=== PATIENT | male | born 1945 | race Caucasian/White ===

== ENCOUNTER → 2019-06-28 08:47 | Outpatient (CLI) | payer MEDICARE, SELFPAY ==
--- NOTE | 2019-06-28 09:11 | CT_ITS ---
PROCEDURE: CT ABDOMEN PELVIS WO/W CON CLINICAL INDICATION: HEMATURIA COMPARISON: No exams were available for comparison TECHNIQUE: IV Contrast: 75ML OPTIRAY 350 Oral Contrast 450ml Redicat Axial images obtained with sagittal and coronal reformats. All CT scans at the facility use one or more dose reduction, viz: automated exposure control, ma/kV adjustment per patient size (including targeted exams where dose is matched to indication, i.e. head), or iterative reconstruction technique. FINDINGS: LOWER THORAX: There are mild atelectatic changes in the left lung base. There is mild cardiomegaly. ABDOMEN & PELVIS: There is an exophytic nodular lesion along the anterior aspect of the left hepatic lobe measuring 4 cm. This shows moderate peripheral contrast enhancement with some puddling on the immediate images with some filling in on the delayed images. This is compatible with a hemangioma. The 10 minutes delayed images show some mild enhancement of the lesion with some decreased attenuation in the central aspect of this lesion. In addition, there is a 1 cm area of decreased attenuation in the posterior aspect of the right hepatic lobe which is nonspecific. The spleen, adrenal glands, and pancreas have an unremarkable appearance. Gallbladder is mildly prominent with multiple folds. No radiopaque gallstones are evident. There is a mildly prominent lymph node in the precaval region between the portal vein and the inferior vena cava measuring 2.8 x 1.2 cm. There is an IVC filter present. The tip is at the level of the entrance of the renal veins. There is mild increased density of the central mesenteric fat which is nonspecific. There is cortical scarring of both kidneys. There are nonobstructing small stones in the left kidney measuring 2 mm in the upper pole and 3 mm in the lower pole. There is a 2.8 cm left renal cyst with other smaller cysts present involving the left kidney. There is an exophytic cyst of the left kidney at 2 cm along the lower pole. No suspicious solid renal mass is evident. No intestinal obstruction or free air. There is pancolonic diverticulosis but no evidence of diverticulitis. No evidence of appendicitis. The prostate is enlarged for measuring 6.4 cm AP and 5.7 cm transverse. There is thickening of the urinary bladder wall. The urinary bladder is nondistended. Along the right aspect of the urinary bladder there is a 9 mm calcific density. Along the left aspect of the urinary bladder posteriorly there is a 5 mm calcific density. The Multilevel degenerative disc disease is present in the thoracic and lumbar spine. Osteoarthritic changes are also present involving the hips. IMPRESSION: 1. Peripheral enhancing mass of the left lobe of the liver measuring 4 cm compatible with a hemangioma. Suggest 3 month follow-up with hemangioma protocol to confirm short term stability 2. Bilateral renal cysts. Nonobstructing left nephrolithiasis with bilateral cortical scarring. 3. Enlarged prostate 4. At least 2 urinary bladder stones. There is thickening of the urinary bladder which may be due to nondistention and or cystitis Dictated by: Chinmay Head MD 06/29/2019 16:14 Electronically signed by Chinmay Head MD in [place] 06/29/2019 16:14
== END ==
PROVIDERS: PCP Internal Medicine Adolescent Medicine; Visit Provider Internal Medicine Adolescent Medicine
DX: R31.9 Hematuria, unspecified (principal)
CPT/HCPCS: 74178; Q9967

== ENCOUNTER → 2020-08-27 10:18 | Outpatient (CLI) | payer MEDICARE, SELFPAY ==
--- NOTE | 2020-08-27 10:34 | XR_ITS ---
PROCEDURE: XR KUB CLINICAL INDICATION: BLADDER STONE COMPARISON: CT CT ABDOMEN PELVIS WO/W CON from 06/28/2019 FINDINGS: IVC filter is present to the right of T12-L1. There is spondylosis of the lumbar spine. 12 mm calcific density is present in the pelvis centrally slightly toward the right and may represent a bladder stone. There is diffuse vascular calcification as well as osteoarthritic changes of the hips. IMPRESSION: 12 mm bladder stone Dictated by: Chinmay Head MD 08/27/2020 12:39 Chinmay Head MD in [facility] 08/27/2020 12:39
== END ==
PROVIDERS: PCP Internal Medicine Adolescent Medicine; Visit Provider Urology
DX: N21.0 Calculus in bladder (principal)
CPT/HCPCS: 74018

== ENCOUNTER → 2020-08-28 13:36 | Outpatient (CLI) | payer MEDICARE, SELFPAY ==
[2020-08-30 09:39] LABS: PSA, Free 0.85 ng/mL; Prostate Specific Ag 3.8 ng/mL (0.0-4.0)
== END ==
PROVIDERS: Visit Provider Urology
DX: R97.20 Elevated prostate specific antigen [PSA] (principal)
CPT/HCPCS: 36415; 84153; 84154

== ENCOUNTER → 2020-09-17 15:24 | Outpatient (CLI) | payer MEDICARE, SELFPAY ==
[2020-09-17 16:22] LABS: INR 3.14 (0.9-1.1)
== END ==
PROVIDERS: Visit Provider Internal Medicine Adolescent Medicine
DX: Z51.81 Encounter for therapeutic drug level monitoring (principal); Z79.01 Long term (current) use of anticoagulants; I63.50 Cerebral infarction due to unspecified occlusion or stenosis of unspecified cerebral artery
CPT/HCPCS: 36415; 85610

== ENCOUNTER → 2020-10-15 12:29 | Outpatient (CLI) | payer MEDICARE, SELFPAY ==
[2020-10-15 15:10] LABS: INR 3.04 (0.9-1.1)
== END ==
PROVIDERS: Visit Provider Internal Medicine Adolescent Medicine
DX: Z51.81 Encounter for therapeutic drug level monitoring (principal); Z79.01 Long term (current) use of anticoagulants; I63.50 Cerebral infarction due to unspecified occlusion or stenosis of unspecified cerebral artery
CPT/HCPCS: 36415; 85610

== ENCOUNTER 2020-10-23 14:54 | Outpatient (CLI) | payer MEDICARE, SELFPAY ==
[2020-10-23 15:45] VITALS: BP 101/61; PULSE 70; RESP 17; TEMP 36.6; O2SAT 90
[2020-10-23 16:00] VITALS: BP 117/78; PULSE 68
[2020-10-23 16:52] VITALS: BP 121/72; PULSE 71; RESP 18; O2SAT 93
[2020-10-23 17:20] VITALS: BP 118/76; PULSE 82; RESP 19; TEMP 36.8; O2SAT 93
== END 2020-10-23 17:29 | disposition home or self-care (01) ==
LOC: INF 14:56
PROVIDERS: PCP Internal Medicine Adolescent Medicine; Visit Provider Internal Medicine Adolescent Medicine
DX: U07.1 COVID-19 (principal)
CPT/HCPCS: 96365

== ENCOUNTER 2020-11-05 08:54 | Outpatient (CLI) | payer MEDICARE, SELFPAY ==
[2020-11-05 09:25] LABS: Basophils % 0.8 % (0.1-2.0); Eosinophils # 0.2 K/mm3 (0.0-0.4); Eosinophils % 3.8 % (0.1-12.0); Hematocrit 41.7 % (42.0-52.0); Hemoglobin 12.9 g/dL (14.1-18.0); Lymphocytes # 1.6 K/mm3 (0.7-4.5); Lymphocytes % 27.9 % (10-50); Mean Corpuscular HGB Conc 30.9 g/dL (31.8-35.4); Mean Corpuscular Hemoglobin 30.6 pg (27.0-31.2); Mean Corpuscular Volume 98.8 fl (80-94); Mean Platelet Volume 7.3 fl (7.4-10.4); Monocytes # 0.4 K/mm3 (0.1-1.0); Neutrophils # 3.6 K/mm3 (1.8-7.8); Neutrophils % 60.6 % (37.0-80.0); Platelet Count 353 K/mm3 (142-424); Red Blood Count 4.22 M/mm3 (4.60-6.20); Red Cell Distribution Width 13.7 % (11.5-17.5); White Blood Count 5.9 K/mm3 (4.8-10.8)
[2020-11-05 10:19] LABS: INR > 8.00 (0.9-1.1)
[2020-11-05 10:20] LABS: Prothrombin Time > 90.0 seconds (10.1-12.5)
[2020-11-05 12:40] VITALS: BP 132/69; PULSE 76; RESP 20; TEMP 36.9; O2SAT 95
[2020-11-05 16:05] LABS: Alanine Aminotransferase 21 U/L (12-78); Albumin Level 3.4 g/dl (3.5-5.0); Albumin/Globulin Ratio 1.3 (1.1-1.8); Alkaline Phosphatase 60 U/L (38-126); Anion Gap 11.6 mEq/L (5-15); Aspartate Amino Transferase 29 U/L (17-59); Bilirubin,Total 0.5 mg/dl (0.2-1.3); Blood Urea Nitrogen 30 mg/dl (9-20); Calcium 8.8 mg/dl (8.4-10.2); Carbon Dioxide 26 mmol/L (22.0-30.0); Chloride 111 mmol/L (98-107); Chol/HDL Ratio 2.8 (1-3.5); Cholesterol 188 mg/dl (140-200); Estimated Glomerular Filt Rate 40 ml/min (>60); GFR (African American) 48 ML/MIN (>60); Globulin 2.6 g/dL (1.3-3.2); Glucose 125 mg/dl (74-100); HDL Cholesterol 67 mg/dl (40-60); Potassium 4.6 mmoL/L (3.5-5.1); Sodium 144 mmol/L (136-145); Triglycerides 133 mg/dl (30-150); VLDL Cholesterol 27 mg/dL (0-40)
[2020-11-05 16:16] LABS: Direct LDL Cholesterol 76.18 mg/dL (100-129)
[2020-11-05 16:35] LABS: Prostate Specific Ag Screen 2.7 ng/ml (0.0-4.0)
== END 2020-11-05 13:00 | disposition home or self-care (01) ==
PROVIDERS: PCP Internal Medicine Adolescent Medicine; Visit Provider Internal Medicine Adolescent Medicine
DX: Z00.00 Encounter for general adult medical examination without abnormal findings (principal); I10 Essential (primary) hypertension; E78.5 Hyperlipidemia, unspecified; E55.9 Vitamin D deficiency, unspecified; Z51.81 Encounter for therapeutic drug level monitoring; Z79.01 Long term (current) use of anticoagulants; Z12.5 Encounter for screening for malignant neoplasm of prostate
CPT/HCPCS: 36415; 80053; 80061; 82306; 85025; 85610; 96372; G0103

== ENCOUNTER → 2020-11-07 09:43 | Outpatient (CLI) | payer MEDICARE, SELFPAY ==
[2020-11-07 11:20] LABS: Prothrombin Time 29.9 seconds (10.1-12.5)
[2020-11-07 11:38] LABS: INR 2.73 (0.9-1.1)
== END ==
PROVIDERS: Visit Provider Internal Medicine Adolescent Medicine
DX: Z51.81 Encounter for therapeutic drug level monitoring (principal); Z79.01 Long term (current) use of anticoagulants; I63.50 Cerebral infarction due to unspecified occlusion or stenosis of unspecified cerebral artery
CPT/HCPCS: 36415; 85610

== ENCOUNTER 2020-11-19 09:29 | Outpatient (CLI) | payer MEDICARE, SELFPAY ==
[2020-11-19 14:57] LABS: PHA INR Fingerstick 2.1 (0.9-1.1)
== END 2020-11-19 15:01 | disposition home or self-care (01) ==
LOC: ACC 09:30
PROVIDERS: PCP Internal Medicine Adolescent Medicine; Visit Provider Internal Medicine Adolescent Medicine
DX: Z51.81 Encounter for therapeutic drug level monitoring (principal); Z79.01 Long term (current) use of anticoagulants
CPT/HCPCS: 85610; 99211; G0463

== ENCOUNTER → 2020-11-28 14:25 | Outpatient (CLI) | payer MEDICARE, SELFPAY ==
[2020-11-28 15:01] LABS: Basophils # 0.1 K/mm3 (0-0.2); Basophils % 0.7 % (0.1-2.0); Eosinophils # 0.2 K/mm3 (0.0-0.4); Eosinophils % 3.3 % (0.1-12.0); Hematocrit 44.1 % (42.0-52.0); Hemoglobin 13.8 g/dL (14.1-18.0); Lymphocytes # 1.4 K/mm3 (0.7-4.5); Lymphocytes % 18.4 % (10-50); Mean Corpuscular HGB Conc 31.3 g/dL (31.8-35.4); Mean Corpuscular Hemoglobin 31.5 pg (27.0-31.2); Mean Corpuscular Volume 100.4 fl (80-94); Mean Platelet Volume 8.5 fl (7.4-10.4); Monocytes # 0.3 K/mm3 (0.1-1.0); Monocytes % 3.6 % (1.7-9.3); Neutrophils # 5.5 K/mm3 (1.8-7.8); Platelet Count 292 K/mm3 (142-424); Red Blood Count 4.39 M/mm3 (4.60-6.20); Red Cell Distribution Width 14.4 % (11.5-17.5); White Blood Count 7.4 K/mm3 (4.8-10.8)
[2020-11-28 15:05] LABS: INR 1.81 (0.9-1.1); Prothrombin Time 19.6 seconds (10.1-12.5)
[2020-11-28 16:29] LABS: Alanine Aminotransferase 15 U/L (12-78); Albumin Level 4.1 g/dl (3.5-5.0); Albumin/Globulin Ratio 1.5 (1.1-1.8); Alkaline Phosphatase 62 U/L (38-126); Anion Gap 10.3 mEq/L (5-15); Aspartate Amino Transferase 25 U/L (17-59); Bilirubin,Total 0.5 mg/dl (0.2-1.3); Blood Urea Nitrogen 31 mg/dl (9-20); Calcium 9.5 mg/dl (8.4-10.2); Carbon Dioxide 30 mmol/L (22.0-30.0); Chloride 104 mmol/L (98-107); Chol/HDL Ratio 2.4 (1-3.5); Cholesterol 238 mg/dl (140-200); Estimated Glomerular Filt Rate 50 ml/min (>60); GFR (African American) 60 ML/MIN (>60); Globulin 2.7 g/dL (1.3-3.2); Glucose 237 mg/dl (74-100); HDL Cholesterol 99 mg/dl (40-60); Potassium 4.3 mmoL/L (3.5-5.1); Sodium 140 mmol/L (136-145); Total Protein,Serum 6.8 g/dl (6.3-8.2); Triglycerides 133 mg/dl (30-150); VLDL Cholesterol 27 mg/dL (0-40)
[2020-11-28 16:40] LABS: Direct LDL Cholesterol 101.17 mg/dL (100-129)
== END ==
PROVIDERS: Visit Provider Internal Medicine Adolescent Medicine
DX: E78.5 Hyperlipidemia, unspecified (principal); Z51.81 Encounter for therapeutic drug level monitoring; Z79.01 Long term (current) use of anticoagulants
CPT/HCPCS: 36415; 80053; 80061; 85025; 85610

== ENCOUNTER → 2020-12-25 15:19 | Outpatient (POV) | payer MEDICARE, SELFPAY | PROVIDERS: Visit Provider Dermatology | DX: Z00.00 Encounter for general adult medical examination without abnormal findings (principal) ==

== ENCOUNTER → 2021-01-10 10:40 | Outpatient (CLI) | payer MEDICARE, SELFPAY ==
[2021-01-10 12:08] LABS: INR 2.31 (0.9-1.1); Prothrombin Time 24.5 seconds (10.1-12.5)
== END ==
PROVIDERS: Visit Provider Internal Medicine Adolescent Medicine
DX: Z51.81 Encounter for therapeutic drug level monitoring (principal); Z79.01 Long term (current) use of anticoagulants; I63.50 Cerebral infarction due to unspecified occlusion or stenosis of unspecified cerebral artery
CPT/HCPCS: 36415; 85610

== ENCOUNTER → 2021-02-11 16:16 | Outpatient (CLI) | payer MEDICARE, SELFPAY ==
[2021-02-11 17:30] LABS: Prothrombin Time 22.5 seconds (10.1-12.5)
== END ==
PROVIDERS: Visit Provider Internal Medicine Adolescent Medicine
DX: I63.50 Cerebral infarction due to unspecified occlusion or stenosis of unspecified cerebral artery (principal); Z51.81 Encounter for therapeutic drug level monitoring; Z79.01 Long term (current) use of anticoagulants
CPT/HCPCS: 36415; 85610

== ENCOUNTER → 2021-03-05 14:57 | Outpatient (CLI) | payer MEDICARE, SELFPAY ==
[2021-03-05 15:35] LABS: INR 2.07 (0.9-1.1); Prothrombin Time 22.2 seconds (10.1-12.5)
== END ==
PROVIDERS: PCP Internal Medicine Adolescent Medicine; Visit Provider Internal Medicine Adolescent Medicine
DX: Z51.81 Encounter for therapeutic drug level monitoring (principal); Z79.01 Long term (current) use of anticoagulants; I63.50 Cerebral infarction due to unspecified occlusion or stenosis of unspecified cerebral artery
CPT/HCPCS: 36415; 85610

== ENCOUNTER → 2021-04-03 11:36 | Outpatient (CLI) | payer MEDICARE, SELFPAY ==
[2021-04-03 15:12] LABS: INR 1.59 (0.9-1.1); Prothrombin Time 17.4 seconds (10.1-12.5)
== END ==
PROVIDERS: PCP Internal Medicine Adolescent Medicine; Visit Provider Internal Medicine Adolescent Medicine
DX: Z51.81 Encounter for therapeutic drug level monitoring (principal); Z79.01 Long term (current) use of anticoagulants; I63.50 Cerebral infarction due to unspecified occlusion or stenosis of unspecified cerebral artery
CPT/HCPCS: 36415; 85610

== ENCOUNTER → 2021-06-04 15:57 | Outpatient (CLI) | payer MEDICARE, SELFPAY ==
[2021-06-04 16:52] LABS: INR 2.79 (0.9-1.1); Prothrombin Time 29.2 seconds (10.1-12.5)
== END ==
PROVIDERS: Visit Provider Internal Medicine Adolescent Medicine
DX: Z51.81 Encounter for therapeutic drug level monitoring (principal); Z79.01 Long term (current) use of anticoagulants; I63.50 Cerebral infarction due to unspecified occlusion or stenosis of unspecified cerebral artery
CPT/HCPCS: 36415; 85610

== ENCOUNTER → 2021-07-01 12:08 | Outpatient (CLI) | payer MEDICARE, SELFPAY ==
[2021-07-01 13:25] LABS: INR 3.77 (0.9-1.1); Prothrombin Time 38.6 seconds (10.1-12.5)
== END ==
PROVIDERS: Visit Provider Internal Medicine Adolescent Medicine
DX: Z51.81 Encounter for therapeutic drug level monitoring (principal); Z79.01 Long term (current) use of anticoagulants; I63.50 Cerebral infarction due to unspecified occlusion or stenosis of unspecified cerebral artery
CPT/HCPCS: 36415; 85610

== ENCOUNTER → 2021-07-16 13:00 | Outpatient (CLI) | payer MEDICARE, SELFPAY ==
[2021-07-16 13:39] LABS: Prothrombin Time 26.4 seconds (10.1-12.5)
== END ==
PROVIDERS: PCP Internal Medicine Adolescent Medicine; Visit Provider Internal Medicine Adolescent Medicine
DX: Z51.81 Encounter for therapeutic drug level monitoring (principal); Z79.01 Long term (current) use of anticoagulants; I63.50 Cerebral infarction due to unspecified occlusion or stenosis of unspecified cerebral artery
CPT/HCPCS: 36415; 85610

== ENCOUNTER 2021-07-25 15:12 | Emergency (ER) | payer MEDICARE, SELFPAY ==
[2021-07-25] VITALS (12 sets, daily range): BP systolic 96–167; BP diastolic 48–108; PULSE 82–107; RESP 18–20; TEMP 37.3–39; O2SAT 90–94; BMI 28.0
--- NOTE | 2021-07-25 15:36 | XR_ITS ---
FINAL REPORT CLINICAL HISTORY: cough, epigastric pain, fever. COMPARISON: May 07, 2018 FINDINGS: A single portable view of the chest was obtained. The heart size and pulmonary vascularity are within normal limits. The mediastinum is within normal limits. No acute pulmonary abnormality is identified. There are several chronic right posterior rib fractures. IMPRESSION: No active cardiopulmonary disease. Reviewed, Interpreted and Dictated by Shukri Gil III, MD Transcribed by Sugey Santana Authenticated and [facility]
--- NOTE | 2021-07-25 15:41 | PC.NURSE ---
rad at BS for portable xray
--- NOTE | 2021-07-25 16:10 | HMH.EDGENADL ---
ED Disposition Clinical Impression: Acute sepsis, Cholangitis Disposition: Xfer Intermediate Care Fac Condition on Discharge: Serious Instructions: Gallstones Referrals: Chandu Wesley MD [Primary Care Provider] - - Critical Care Critical Care Time: No Attestation: On 07/25/21, the high probability of a clinically significant, sudden or life threatening deterioration of the following system(s) required my full and direct attention, intervention and personal management. The time I documented below is in addition to time spent performing reported procedures but includes the following listed in this critical care notation. Medical Decision Making - Medical Records Medical records reviewed: Yes: I reviewed the patient's medical records. - Dannie Inquiry Pt receiving controlled substance: No Vital Signs: 07/25/21 15:35 07/25/21 17:13 07/25/21 17:14 Temperature 101.5 F H 102.2 F H Temperature Source Oral Oral Pulse Rate 104 H 107 H Pulse Rate [Left Radial] 92 H Respiratory Rate 18 20 Blood Pressure 167/70 H 167/70 H Blood Pressure [Right Arm] 159/73 H Blood Pressure Mean 94 Blood Pressure Mean [Right Arm] 101 02 Sat by Pulse Oximetry 94 L 93 L 91 L Oxygen Delivery Method Room Air Room Air 07/25/21 17:31 Temperature Temperature Source Pulse Rate 106 H Pulse Rate [Left Radial] Respiratory Rate 18 Blood Pressure 160/108 H Blood Pressure [Right Arm] Blood Pressure Mean 117 Blood Pressure Mean [Right Arm] 02 Sat by Pulse Oximetry 90 L Oxygen Delivery Method - Lab Data Lab Results 07/25/21 16:18: WBC 11.5 H, RBC 3.98 L, Hgb 12.7 L, Hct 39.4 L, MCV 99.0 H, MCH 32.0 H, MCHC 32.4, RDW 13.4, Plt Count 243, MPV 8.8, Neut % (Auto) 93.8 H, Lymph % (Auto) 3.0 L, [place] % (Auto) 2.0, Eos % (Auto) 0.8, Baso % (Auto) 0.4, Neut # (Auto) 10.8 H, Lymph # (Auto) 0.3 L, [place] # (Auto) 0.2, Eos # (Auto) 0.1, Baso # (Auto) 0.1, Total Counted 100, Neutrophils % (Manual) 92 H, Lymphocytes % (Manual) 4 L, Monocytes % (Manual) 4, Platelet Estimate Normal, RBC Morphology Not Reportable 07/25/21 16:18: Sodium 140, Potassium 3.5, Chloride 101, Carbon Dioxide 30, Anion Gap 12.5, BUN 38 H, Creatinine 2.10 H, Estimated Creat Clear 37, Estimated GFR 31 L, Est GFR ( Amer) 37 L, Glucose 301 H, Calcium 9.1, Total Bilirubin 5.0 H, AST 291 H, ALT 436 H*, Alkaline Phosphatase 333 H, Troponin I < 0.01, Total Protein 7.4, Albumin 4.1, Globulin 3.3 H, Albumin/Globulin Ratio 1.2, Lipase 126 07/25/21 16:18: Lactate 2.9 H 07/25/21 16:18: SARS-CoV-2 (PCR) Not detected, Influenza A Untype (PCR) Not detected, Influenza Type B (PCR) Not detected 07/25/21 17:55: Urine Color Yellow, Urine Appearance Clear, Urine pH 5.0, Ur Specific [place] 1.020, Urine Protein Trace, Urine Glucose (UA) 2+, Urine Ketones Negative, Urine Blood Trace-l, Urine Nitrate Negative, Urine Bilirubin 1+ A, Urine Urobilinogen 1.0, Ur Leukocyte Esterase Negative, Urine RBC Occasional, Urine WBC 5-10, Ur Squamous Epith Cells 3-5, Urine Bacteria 3+ 07/25/21 19:12: Troponin I 0.02 Result diagrams: 07/25/21 16:18 07/25/21 16:18 Orders (Tests/Meds): ED MEDICATIONS Generic Name Dose Route Start Last Admin Trade Name Freq PRN Reason Stop Dose Admin Ceftriaxone Sodium 1 gm/ 50 mls @ 100 mls/hr 07/25/21 17:45 07/25/21 18:01 Sodium Chloride IV 08/08/21 17:44 100 mls/hr Q24H KEILY Administration Metronidazole 500 mg in 100 mls @ 100 mls/hr 07/25/21 19:34 Flagyl 500mg/100ml Ivpb IV 07/25/21 20:33 ONCE ONE Discontinued Medications Generic Name Dose Route Start Last Admin Trade Name Freq PRN Reason Stop Dose Admin Acetaminophen 1,000 mg 07/25/21 15:36 07/25/21 16:21 Acetaminophen 500mg Tab PO 07/25/21 15:37 1,000 mg ONCE ONE Administration Sodium Chloride 1,000 mls @ 999 mls/hr 07/25/21 15:45 07/25/21 16:21 Sod Chlor 0.9% 1000ml Bag IV 07/25/21 16:45 999 mls/hr .Q1H1M KEILY Administration Ondansetron HCl 4 mg
--- NOTE | 2021-07-25 16:18 | PC.NURSE ---
20g ultrasound guided IV placed in the right ac.
[2021-07-25 16:26] LABS: Coronavirus 19, PCR Not Detected (NotDetected); Influenza A, PCR Not Detected (NotDetected); Influenza B, PCR Not Detected (NotDetected)
[2021-07-25 16:31] LABS: Basophils # 0.1 K/mm3 (0-0.2); Basophils % 0.4 % (0.1-2.0); Eosinophils # 0.1 K/mm3 (0.0-0.4); Eosinophils % 0.8 % (0.1-12.0); Hematocrit 39.4 % (42.0-52.0); Hemoglobin 12.7 g/dL (14.1-18.0); Lymphocytes # 0.3 K/mm3 (0.7-4.5); Mean Corpuscular HGB Conc 32.4 g/dL (31.8-35.4); Mean Platelet Volume 8.8 fl (7.4-10.4); Monocytes # 0.2 K/mm3 (0.1-1.0); Neutrophils # 10.8 K/mm3 (1.8-7.8); Neutrophils % 93.8 % (37.0-80.0); Platelet Count 243 K/mm3 (142-424); Red Blood Count 3.98 M/mm3 (4.60-6.20); Red Cell Distribution Width 13.4 % (11.5-17.5); White Blood Count 11.5 K/mm3 (4.8-10.8)
[2021-07-25 16:40] LABS: Alanine Aminotransferase 436 U/L (12-78); Albumin Level 4.1 g/dl (3.5-5.0); Albumin/Globulin Ratio 1.2 (1.1-1.8); Alkaline Phosphatase 333 U/L (38-126); Anion Gap 12.5 mEq/L (5-15); Aspartate Amino Transferase 291 U/L (17-59); Blood Urea Nitrogen 38 mg/dl (9-20); Calcium 9.1 mg/dl (8.4-10.2); Carbon Dioxide 30 mmol/L (22.0-30.0); Chloride 101 mmol/L (98-107); Creatinine Clearance Estimated 37 mL/min (50-200); Estimated Glomerular Filt Rate 31 ml/min (>60); GFR (African American) 37 ML/MIN (>60); Globulin 3.3 g/dL (1.3-3.2); Glucose 301 mg/dl (74-100); Lipase 126 U/L (23-300); Potassium 3.5 mmoL/L (3.5-5.1); Sodium 140 mmol/L (136-145); Total Protein,Serum 7.4 g/dl (6.3-8.2)
[2021-07-25 16:48] LABS: MANUAL DIFFERENTIAL MANUAL DIFFERENTIAL (MANUAL DIFF)
[2021-07-25 16:53] LABS: Lactic Acid 2.9 mmol/L (0.7-2.1); Troponin I < 0.01 ng/ml (0.00-0.034)
--- NOTE | 2021-07-25 17:15 | CT_ITS ---
PROCEDURE INFORMATION: Exam: CT Abdomen And Pelvis Without Contrast Exam date and time: 07/25/2021 5:38 PM Age: 76 years old Clinical indication: Abdominal pain; Localized; Upper; Prior surgery; Additional info: Ruq pain, fever TECHNIQUE: Imaging protocol: Computed tomography of the abdomen and pelvis without contrast. Radiation optimization: All CT scans at this facility use at least one of these dose optimization techniques: automated exposure control; mA and/or kV adjustment per patient size (includes targeted exams where dose is matched to clinical indication); or iterative reconstruction. COMPARISON: CT ABDOMEN PELVIS WO/W CON 06/28/2019 9:46 AM FINDINGS: Liver: Persistent slightly exophytic nodule the anterior aspect of the left lobe of the liver. This has been demonstrated to correspond to a hemangioma on the 06/28/2019 examination. No contrast was administered on the current study. Gallbladder and bile ducts: Persistent mild prominence of the gallbladder. Mild increased density within the gallbladder consistent with sludge. The common bile duct is dilated and measures 11 mm in AP dimensions. No retained stone is identified. Findings have progressed since the previous study. Pancreas: Normal. No ductal dilation. Spleen: Normal. No splenomegaly. Adrenal glands: Normal. No mass. Kidneys and ureters: Persistent multiple left renal cysts. The largest measures 2.4 cm in maximum dimensions. These findings accounting for slight differences in technique are stable compared with the previous study. Bilateral perinephric stranding. Findings nonspecific and may reflect acute versus chronic inflammatory change. Stomach and bowel: Persistent ponce colonic diverticulosis. No evidence of diverticulitis. Appendix: No evidence of appendicitis. Intraperitoneal space: Persistent mild increased density of the central mesenteric fat. Vasculature: IVC filter again demonstrated. Lymph nodes: Unremarkable. No enlarged lymph nodes. Urinary bladder: There is a persistent calcific density along the left posterolateral aspect of the bladder measuring 8 mm. This is bigger in comparison to the previous study. The previously demonstrated right-sided calcific densities no longer present. Reproductive: There is persistent prostatic enlargement. Bones/joints: Lumbar spondylosis with multilevel disc degeneration. Soft tissues: Persistent right-sided fat filled inguinal hernia. IMPRESSION: 1. Mild dilatation of the distal common bile duct measuring 11 mm in AP dimensions. Gallbladder sludge. No evidence of a retained stone. Consider further evaluation with an abdominal ultrasound. 2. Persistent multiple left renal cysts. Findings stable. 3. Diverticulosis. No evidence of diverticulitis. 4. Remainder of the findings as described above. COMMENTS: 1. Consistent with the [employer]'s Incidental Findings Committee white paper (J Am Jakob Radiol 2018): Any incidental renal lesion less than 1 cm or classified as too small to characterize, or any incidental cystic renal lesion characterized as simple-appearing, is likely benign. No follow-up imaging is recommended for these lesions per consensus recommendations based on imaging criteria. 2. For patients with an IVC filter, recommend assessment for a management plan for the patient's IVC filter. If there is no established management plan, recommend referral to an interventional clinician on a nonemergent basis for evaluation.
--- NOTE | 2021-07-25 17:15 | PC.NURSE ---
reevaluated pt temperature d/t fever. pt's temperature elevated from arrival. MD notified. no patient needs at this time
--- NOTE | 2021-07-25 17:43 | PC.NURSE ---
pt to radiology
--- NOTE | 2021-07-25 18:00 | PC.NURSE ---
pt returned from radiology
[2021-07-25 18:02] LABS: Lymphocytes % 4 % (10-50); Monocytes % 4 % (2-9); Neutrophils % 92 % (42-76); Platelet Estimate Normal; Total Cells Counted 100
[2021-07-25 18:05] LABS: Microscopic, Urine URINE MICROSCOPIC (MICROSCOPIC)
[2021-07-25 18:18] LABS: Appearance,Urine CLEAR (Clear); Blood, Urine TRACE-L (Negative); Color,Urine YELLOW (Yellow); Glucose,Urine (UA) 2+ (Negative); Ketones,Urine Negative (Negative); Leukocyte Esterase,Urine Negative (Negative); Nitrate,Urine Negative (Negative); Protein,Urine TRACE (Negative)
[2021-07-25 18:19] LABS: Bilirubin,Urine 1+ (Negative)
--- NOTE | 2021-07-25 18:25 | PC.NURSE ---
Call to [facility], no beds available, patient put on wait list
--- NOTE | 2021-07-25 18:25 | PC.NURSE ---
pt placed on 2L NC d/t sat dropping to 88% while pt was sleeping. pt has no concerns at this time
[2021-07-25 18:39] LABS: Bacteria,Urine 3+ /lpf; RBC,Urine Occasional #/hpf (0-3)
--- NOTE | 2021-07-25 18:52 | PC.NURSE ---
[facility] called for pt transfer Dr Henry speaking with Dr Pelletier
--- NOTE | 2021-07-25 19:32 | PC.NURSE ---
ED doctor on phone with Dr. Ty Sandoval
[2021-07-25 19:40] LABS: Troponin I 0.02 ng/ml (0.00-0.034)
[2021-07-25 19:51] LABS: Activated Partial Thrombo Time 42.5 seconds (22.8-30.6); INR 3.02 (0.9-1.1); Prothrombin Time 31.4 seconds (10.1-12.5)
[2021-07-25 20:24] LABS: Reflex Lactic Add Lactic Reflex
--- NOTE | 2021-07-25 20:57 | PC.NURSE ---
S/w green end department supervisor Shruthi at [facility]. pt has been accepted by hospitalist and dr posada. They do not have a bed assignment at this time or timeframe. Pt is added on for Dr. Posada to do an ercp tomorrow. She states once their pt transfers out they will call and pt may come. Pt & spouse updated on this information.
--- NOTE | 2021-07-25 21:10 | PC.NURSE ---
Updated pt and on POC, maintenance NS infusing. Dressing to RAC changed a this time. Pillow given and extra blanket.
--- NOTE | 2021-07-25 22:03 | PC.NURSE ---
patient repositioned in bed
[2021-07-26] VITALS: BP 96/46; PULSE 69; O2SAT 99
[2021-07-26 00:11] VITALS: BP 96/46; PULSE 73; RESP 18; TEMP 37.3; O2SAT 95
[2021-07-26 00:30] VITALS: BP 104/62; PULSE 77; O2SAT 98
--- NOTE | 2021-07-26 06:46 | PC.NURSE ---
Positive prelim blood culture results faxed to [facility] ([phone]) and s/w to Valeri in ICU. Fax confirmation received.
== END 2021-07-26 00:39 ==
PROVIDERS: Emergency Provider Emergency Medicine; PCP Internal Medicine Adolescent Medicine
DX: Z86.73 Personal history of transient ischemic attack (TIA), and cerebral infarction without residual deficits (principal); I82.409 Acute embolism and thrombosis of unspecified deep veins of unspecified lower extremity; E78.5 Hyperlipidemia, unspecified; I10 Essential (primary) hypertension; M19.90 Unspecified osteoarthritis, unspecified site; A41.89 Other specified sepsis; K83.09 Other cholangitis; I73.9 Peripheral vascular disease, unspecified
CPT/HCPCS: 71045; 74176; 80053; 81001; 83605; 83690; 84484; 85007; 85025; 85610; 85730; 87040; 87077; 87086; 87186; 96365; 96366; 99285; C9803; J0696; J2405; U0003; U0005

== ENCOUNTER → 2021-08-08 15:06 | Outpatient (CLI) | payer MEDICARE, SELFPAY ==
[2021-08-08 15:45] LABS: INR 2.32 (0.9-1.1); Prothrombin Time 24.6 seconds (10.1-12.5)
== END ==
PROVIDERS: PCP Internal Medicine Adolescent Medicine; Visit Provider Internal Medicine Adolescent Medicine
DX: Z51.81 Encounter for therapeutic drug level monitoring (principal); Z79.01 Long term (current) use of anticoagulants; I63.50 Cerebral infarction due to unspecified occlusion or stenosis of unspecified cerebral artery
CPT/HCPCS: 36415; 85610

== ENCOUNTER → 2021-08-10 10:11 | Outpatient (CLI) | payer MEDICARE, SELFPAY ==
[2021-08-10 11:27] LABS: Basophils % 0.6 % (0.1-2.0); Eosinophils # 0.2 K/mm3 (0.0-0.4); Eosinophils % 3.3 % (0.1-12.0); Hematocrit 29.6 % (42.0-52.0); Hemoglobin 9.3 g/dL (14.1-18.0); Lymphocytes # 1.3 K/mm3 (0.7-4.5); Lymphocytes % 17.3 % (10-50); Mean Corpuscular HGB Conc 31.5 g/dL (31.8-35.4); Mean Corpuscular Hemoglobin 31.7 pg (27.0-31.2); Mean Corpuscular Volume 100.6 fl (80-94); Mean Platelet Volume 8.1 fl (7.4-10.4); Monocytes # 0.4 K/mm3 (0.1-1.0); Monocytes % 5.4 % (1.7-9.3); Neutrophils # 5.4 K/mm3 (1.8-7.8); Neutrophils % 73.4 % (37.0-80.0); Platelet Count 420 K/mm3 (142-424); Red Blood Count 2.94 M/mm3 (4.60-6.20); Red Cell Distribution Width 13.8 % (11.5-17.5); White Blood Count 7.3 K/mm3 (4.8-10.8)
[2021-08-10 11:47] LABS: Chloride 108 mmol/L (98-107); Potassium 3.9 mmoL/L (3.5-5.1); Sodium 142 mmol/L (136-145)
[2021-08-10 11:50] LABS: Alanine Aminotransferase 26 U/L (12-78); Alkaline Phosphatase 112 U/L (38-126); Anion Gap 8.9 mEq/L (5-15); Aspartate Amino Transferase 33 U/L (17-59); Bilirubin,Total 0.5 mg/dl (0.2-1.3); Blood Urea Nitrogen 19 mg/dl (9-20); Carbon Dioxide 29 mmol/L (22.0-30.0); Estimated Glomerular Filt Rate 37 ml/min (>60); GFR (African American) 45 ML/MIN (>60)
[2021-08-10 11:51] LABS: Calcium 8.4 mg/dl (8.4-10.2); Glucose 119 mg/dl (74-100)
[2021-08-10 13:29] LABS: Hemoglobin A1C 6.7 % (4.0-6.0)
== END ==
PROVIDERS: PCP Internal Medicine Adolescent Medicine; Visit Provider Internal Medicine Adolescent Medicine
DX: K85.10 Biliary acute pancreatitis without necrosis or infection (principal); A41.51 Sepsis due to Escherichia coli [E. coli]; N17.9 Acute kidney failure, unspecified; Z79.899 Other long term (current) drug therapy
CPT/HCPCS: 36415; 80053; 83036; 85025

== ENCOUNTER 2021-08-23 13:36 | Emergency (ER) | payer MEDICARE, SELFPAY ==
[2021-08-23 13:36] VITALS: BP 148/64; PULSE 87; RESP 16; TEMP 36.7; O2SAT 93; BMI 28.5
--- NOTE | 2021-08-23 13:56 | HMH.EDUROGM ---
ED Disposition Clinical Impression: Acute retention of urine Disposition: Home, Self-Care Condition on Discharge: Good Instructions: DI for Urinary Retention in Men Additional Instructions: Follow-up with your primary care doctor in about 3 to 4 days. Return to the emergency department if you feel worse in any way. Referrals: Chandu Wesley MD [Primary Care Provider] - - Critical Care Critical Care Time: No Attestation: On 08/23/21, the high probability of a clinically significant, sudden or life threatening deterioration of the following system(s) required my full and direct attention, intervention and personal management. The time I documented below is in addition to time spent performing reported procedures but includes the following listed in this critical care notation. Medical Decision Making - Dannie Inquiry Pt receiving controlled substance: No Vital Signs: 08/23/21 13:36 Temperature 98.1 F Temperature Source Oral Pulse Rate [Right Radial] 87 Respiratory Rate 16 Blood Pressure [Right Arm] 148/64 H Blood Pressure Mean [Right Arm] 92 Blood Pressure Source [Right Arm] Automatic Cuff Blood Pressure Position [Right Arm] Sitting 02 Sat by Pulse Oximetry 93 L Oxygen Delivery Method Room Air Orders (Tests/Meds): ORDERS Category Date Time Status Urinalysis and Microscopic Stat Lab 08/23/21 14:45 Received - Reevaluation(s) Time: 14:53 Reevaluation #1: The patient feels better after having had the Lincoln catheter placed. Approximately 5 to 600 mL of urine have drained. The patient has opted for a leg bag and the larger bag will be converted to a leg bag. The patient cannot be safely discharged home. Male Urogenital HPI - General Chief complaint: Urogenital-Male Stated complaint: post op 08/22 unable to urinate Time Seen by Provider: 08/23/21 13:56 Mode of Arrival: Ambulatory Limitations: No Limitations Description of Symptoms (Recalled from ER Triage Doc. by RN): Pt states that he had an ERCP performed yesterday and has now not urinated x20 hours - History of Present Illness HPI Narrative: The patient presents to the emergency department accompanied by his for urinary retention. He had an ERCP done yesterday to remove a biliary stent. Since then he has not been able to urinate. He feels the urge to urinate. He last urinated about 5 PM yesterday. - Related Data Home Medications Medication Instructions Recorded Confirmed folic acid 1 mg tablet 1 mg PO DAILY 04/16/17 01/23/21 fluoxetine 10 mg capsule 10 mg PO DAILY 30 Days cap 12/31/17 01/23/21 warfarin 4 mg tablet 4 mg PO DAILY tab 03/02/19 01/23/21 lisinopril 20 mg tablet 20 mg PO DAILY tab 08/31/19 01/23/21 celecoxib 200 mg capsule 200 mg PO DAILY cap 10/17/20 01/23/21 finasteride 5 mg tablet 5 mg PO DAILY tab 10/17/20 01/23/21 hydrochlorothiazide 25 mg tablet 25 mg PO DAILY tab 10/17/20 01/23/21 tamsulosin 0.4 mg capsule 0.4 mg PO DAILY 10/17/20 01/23/21 warfarin 3 mg tablet 3 mg PO DAILY tab 10/17/20 01/23/21 atorvastatin 10 mg tablet mg PO DAILY tab 07/10/21 07/10/21 metformin 500 mg tablet mg PO DAILY tab 07/10/21 07/10/21 Allergies Allergy/AdvReac Type Severity Reaction Status Date / Time No Known Allergies Allergy Verified 07/10/21 14:23 [facility] History - Hepatitis A Screen Drug use history?: No Attestation statement:: This patient has been screened for Hepatitis A risk factors. Medical History: Reports:: Deep Vein Thrombosis, Hyperlipidemia, Hypertension Denies:: Cancer, Diabetes Mellitus Type 1, Diabetes Mellitus Type 2, Gastroesophageal Reflux Disease(GERD), MRSA Other Medical History: Reports: Arthritis, Sinus Problems, Other. Denies: Hypothyroidism, Thyroid Disease Comment: Hx of cerebral hemorrhage Other Surgeries: Yes: No Previous Surgery, Cardiac Catheterization, Other Amputation: No Fractures: No Comment: [facility] - Social History Smoking Status: Never smoker Abena
[2021-08-23 14:00] VITALS: BP 148/66; PULSE 88; O2SAT 93
--- NOTE | 2021-08-23 14:19 | PC.NURSE ---
524 mL of fluid noted in bladder with use of the bladder scanner. notified.
[2021-08-23 14:30] VITALS: BP 157/69; PULSE 81; O2SAT 93
[2021-08-23 14:52] LABS: Microscopic, Urine URINE MICROSCOPIC (MICROSCOPIC)
[2021-08-23 15:00] VITALS: BP 144/64; PULSE 94; O2SAT 95
[2021-08-23 15:05] LABS: Appearance,Urine SL CLOUDY (Clear); Bilirubin,Urine Negative (Negative); Blood, Urine 3+ (Negative); Color,Urine YELLOW (Yellow); Glucose,Urine (UA) TRACE (Negative); Ketones,Urine Negative (Negative); Leukocyte Esterase,Urine 2+ (Negative); Nitrate,Urine Negative (Negative); PH,Urine 6.5 (5.0-8.5); Protein,Urine Negative (Negative); Urobilinogen,Urine 0.2 EU/dl (0.2)
[2021-08-23 15:17] LABS: RBC,Urine 20-50 #/hpf (0-3)
--- NOTE | 2021-08-23 15:32 | PC.NURSE ---
Upon D/C pt's F/C was switched to a leg bag. 600mL had drained into the original shabazz bag.
[2021-08-23 15:33] VITALS: BP 144/64; PULSE 66; RESP 16; TEMP 36.7; O2SAT 96
== END 2021-08-23 15:34 | disposition home or self-care (01) ==
PROVIDERS: Emergency Provider Emergency Medicine; PCP Internal Medicine Adolescent Medicine
DX: R33.9 Retention of urine, unspecified (principal); I10 Essential (primary) hypertension; E78.5 Hyperlipidemia, unspecified; Z86.718 Personal history of other venous thrombosis and embolism; Z79.01 Long term (current) use of anticoagulants; Z98.890 Other specified postprocedural states
CPT/HCPCS: 51702; 81001; 87086; 87088; 87186; 99283

== ENCOUNTER 2021-08-26 08:32 | Emergency (ER) | payer MEDICARE, SELFPAY ==
[2021-08-26 08:35] VITALS: BP 178/70; PULSE 65; RESP 18; TEMP 36.9; O2SAT 95; BMI 28.3
--- NOTE | 2021-08-26 08:42 | PC.NURSE ---
ED MD AT BEDSIDE
[2021-08-26 08:43] VITALS: BMI 28.3
--- NOTE | 2021-08-26 08:44 | HMH.EDUROGM ---
ED Disposition Clinical Impression: Hematuria Qualifiers: Hematuria type: gross Qualified Code(s): R31.0 - Gross hematuria Disposition: Home, Self-Care Condition on Discharge: Fair Additional Instructions: Follow-up with your primary care doctor in about 3 to 4 days if you continue to have bloody urine. Return to the emergency department immediately if you worsen in any way. Referrals: Chandu Wesley MD [Primary Care Provider] - - Critical Care Critical Care Time: No Attestation: On 08/26/21, the high probability of a clinically significant, sudden or life threatening deterioration of the following system(s) required my full and direct attention, intervention and personal management. The time I documented below is in addition to time spent performing reported procedures but includes the following listed in this critical care notation. Medical Decision Making - Dannie Inquiry Pt receiving controlled substance: No Male Urogenital HPI - General Stated complaint: genital bleeding Time Seen by Provider: 08/26/21 08:45 - History of Present Illness HPI Narrative: The patient presents to the emergency department complaining of persistent hematuria after having had a Lincoln catheter placed on Thursday here. The Lincoln catheter was placed due to urinary retention after a surgical procedure. The patient is on anticoagulation. He denies any fevers. - Related Data Home Medications Medication Instructions Recorded Confirmed folic acid 1 mg tablet 1 mg PO DAILY 04/16/17 01/23/21 fluoxetine 10 mg capsule 10 mg PO DAILY 30 Days cap 12/31/17 01/23/21 warfarin 4 mg tablet 4 mg PO DAILY tab 03/02/19 01/23/21 lisinopril 20 mg tablet 20 mg PO DAILY tab 08/31/19 01/23/21 celecoxib 200 mg capsule 200 mg PO DAILY cap 10/17/20 01/23/21 finasteride 5 mg tablet 5 mg PO DAILY tab 10/17/20 01/23/21 hydrochlorothiazide 25 mg tablet 25 mg PO DAILY tab 10/17/20 01/23/21 tamsulosin 0.4 mg capsule 0.4 mg PO DAILY 10/17/20 01/23/21 warfarin 3 mg tablet 3 mg PO DAILY tab 10/17/20 01/23/21 atorvastatin 10 mg tablet mg PO DAILY tab 07/10/21 07/10/21 metformin 500 mg tablet mg PO DAILY tab 07/10/21 07/10/21 Allergies Allergy/AdvReac Type Severity Reaction Status Date / Time No Known Allergies Allergy Verified 07/10/21 14:23 [facility] History - Hepatitis A Screen Drug use history?: No Attestation statement:: This patient has been screened for Hepatitis A risk factors. Medical History: Reports:: Deep Vein Thrombosis, Hyperlipidemia, Hypertension Denies:: Cancer, Diabetes Mellitus Type 1, Diabetes Mellitus Type 2, Gastroesophageal Reflux Disease(GERD), MRSA Other Medical History: Reports: Arthritis, Sinus Problems, Other. Denies: Hypothyroidism, Thyroid Disease Comment: Hx of cerebral hemorrhage Other Surgeries: Yes: No Previous Surgery, Cardiac Catheterization, Other Amputation: No Fractures: No Comment: Sara filter - Social History Smoking Status: Never smoker Alcohol Intake: never Alcohol Intake Frequency:: other Substance Use Type: denies use Occupational Status: retired Housing: house Household Members: spouse Family Hx:: Hypertension ROS Obtained: Yes All systems reviewed & no additional complaints Physical Exam - General General appearance: alert, in no apparent distress - Head Head exam: atraumatic, normocephalic, normal inspection - Eye Eye exam: Present: normal appearance, PERRL, EOMI. Absent: scleral icterus - ENT ENT exam: Present: normal exam, normal oropharynx, mucous membranes moist, normal external ear exam - Neck Neck exam: Present: normal inspection, full ROM, trachea midline. Absent: meningismus, lymphadenopathy - Chest Chest inspection: Present: normal inspection, symmetric chest wall rise. Absent: tenderness - Respiratory Respiratory exam: Present: normal lung sounds bilaterally. Absent: respiratory distress - Cardiovascular Cardiovascular exam: Present: regular rate,
--- NOTE | 2021-08-26 08:57 | PC.NURSE ---
GARCIA REMOVED WITHOUT DIFFICULTY.
[2021-08-26 09:03] VITALS: BP 174/71; PULSE 62; RESP 18; TEMP 36.6; O2SAT 98
== END 2021-08-26 09:05 | disposition home or self-care (01) ==
PROVIDERS: Emergency Provider Emergency Medicine; PCP Internal Medicine Adolescent Medicine
DX: R31.0 Gross hematuria (principal); Z96.0 Presence of urogenital implants; I73.9 Peripheral vascular disease, unspecified; I10 Essential (primary) hypertension; E78.5 Hyperlipidemia, unspecified; M19.90 Unspecified osteoarthritis, unspecified site
CPT/HCPCS: 99282

== ENCOUNTER → 2021-08-26 20:21 | Outpatient (CLI) | payer MEDICARE, SELFPAY ==
--- NOTE | 2021-08-26 20:30 | PC.NURSE ---
Patient present with outpatient orders from Dr. Wesley for lab work and anchor f/c for urinary retention. Patient reports discomfort and has been unable to void since f/c was removed. Patient reports extreme pain with previous catheter placement. Unable to retraction foreskin, and small yellow lesion present. Unable to feed catheter, procedure stopped and I requested the service of Dr. Cedillo. Dr. Cedillo anchored # 12 coude cath with urojet, immediately 650 ml dark red urine. Small amount of bleeding from meatus present. Specimen collected, Blood drawn and sent to lab. Leg bag placed. Patient tolerated procedure. Dr. Cedillo recommended to family to follow up with urology, verbalized understanding. Bactroban ointment applied to small yellow lesion per Dr. Cedillo's order.
[2021-08-26 21:20] LABS: Microscopic, Urine URINE MICROSCOPIC (MICROSCOPIC)
[2021-08-26 21:22] VITALS: BMI 28.4
[2021-08-26 21:28] LABS: Basophils # 0.1 K/mm3 (0-0.2); Basophils % 0.5 % (0.1-2.0); Eosinophils # 0.1 K/mm3 (0.0-0.4); Hematocrit 33.5 % (42.0-52.0); Hemoglobin 9.8 g/dL (14.1-18.0); Lymphocytes # 0.7 K/mm3 (0.7-4.5); Lymphocytes % 7.9 % (10-50); Mean Corpuscular HGB Conc 29.2 g/dL (31.8-35.4); Mean Corpuscular Hemoglobin 29.6 pg (27.0-31.2); Mean Corpuscular Volume 101.3 fl (80-94); Mean Platelet Volume 8.4 fl (7.4-10.4); Monocytes # 0.4 K/mm3 (0.1-1.0); Monocytes % 4.4 % (1.7-9.3); Neutrophils # 7.7 K/mm3 (1.8-7.8); Neutrophils % 86.2 % (37.0-80.0); Platelet Count 271 K/mm3 (142-424); Red Blood Count 3.31 M/mm3 (4.60-6.20); Red Cell Distribution Width 14.1 % (11.5-17.5); White Blood Count 8.9 K/mm3 (4.8-10.8)
[2021-08-26 21:28] LABS: Appearance,Urine CLOUDY (Clear); Blood, Urine 3+ (Negative); Color,Urine RED (Yellow); Glucose,Urine (UA) Negative (Negative); Ketones,Urine Negative (Negative); Leukocyte Esterase,Urine TRACE (Negative); Nitrate,Urine POSITIVE (Negative); PH,Urine 6.5 (5.0-8.5); Protein,Urine 2+ (Negative); Specific Gravity, Urine 1.015 (1.005-1.030)
[2021-08-26 21:29] VITALS: BP 167/80; PULSE 72; RESP 16; O2SAT 98
[2021-08-26 21:32] LABS: Alanine Aminotransferase 20 U/L (12-78); Albumin Level 3.7 g/dl (3.5-5.0); Albumin/Globulin Ratio 1.1 (1.1-1.8); Alkaline Phosphatase 103 U/L (38-126); Anion Gap 10.7 mEq/L (5-15); Aspartate Amino Transferase 27 U/L (17-59); Bilirubin,Total 0.4 mg/dl (0.2-1.3); Blood Urea Nitrogen 29 mg/dl (9-20); Calcium 8.3 mg/dl (8.4-10.2); Carbon Dioxide 28 mmol/L (22.0-30.0); Chloride 103 mmol/L (98-107); Creatinine Clearance Estimated 49 mL/min (50-200); Estimated Glomerular Filt Rate 42 ml/min (>60); GFR (African American) 51 ML/MIN (>60); Globulin 3.3 g/dL (1.3-3.2); Glucose 192 mg/dl (74-100); Potassium 3.7 mmoL/L (3.5-5.1); Sodium 138 mmol/L (136-145)
[2021-08-26 21:33] LABS: Bilirubin,Urine 1+ (Negative)
[2021-08-26 21:34] LABS: MANUAL DIFFERENTIAL MANUAL DIFFERENTIAL (MANUAL DIFF)
[2021-08-26 21:36] LABS: INR 1.69 (0.9-1.1); Prothrombin Time 18.4 seconds (10.1-12.5)
[2021-08-26 21:55] LABS: Bacteria,Urine 1+ /lpf; RBC,Urine TNTC #/hpf (0-3); Squamous Epithelial Cell,Urine Occasional #/hpf (0-5)
[2021-08-26 22:17] LABS: Eosinophils % 2 % (0-3); Lymphocytes % 11 % (10-50); Monocytes % 1 % (2-9); Neutrophils % 86 % (42-76); Total Cells Counted 100
[2021-08-26 22:18] LABS: Macrocytosis 1+; Platelet Estimate Normal
== END ==
PROVIDERS: PCP Internal Medicine Adolescent Medicine; Visit Provider Internal Medicine Adolescent Medicine
DX: N39.0 Urinary tract infection, site not specified (principal); R33.8 Other retention of urine; Z51.81 Encounter for therapeutic drug level monitoring; Z79.01 Long term (current) use of anticoagulants; Z79.899 Other long term (current) drug therapy
CPT/HCPCS: 80053; 81001; 85007; 85025; 85610; 87086; G0463

== ENCOUNTER → 2021-09-12 15:55 | Outpatient (CLI) | payer MEDICARE, SELFPAY ==
[2021-09-12 17:42] LABS: INR 2.49 (0.9-1.1); Prothrombin Time 26.3 seconds (10.1-12.5)
== END ==
PROVIDERS: PCP Internal Medicine Adolescent Medicine; Visit Provider Urology
DX: R33.9 Retention of urine, unspecified (principal); I63.50 Cerebral infarction due to unspecified occlusion or stenosis of unspecified cerebral artery; Z51.81 Encounter for therapeutic drug level monitoring; Z79.01 Long term (current) use of anticoagulants; B96.4 Proteus (mirabilis) (morganii) as the cause of diseases classified elsewhere
CPT/HCPCS: 36415; 85610; 87086; 87088; 87186

== ENCOUNTER → 2021-10-09 10:26 | Outpatient (CLI) | payer MEDICARE, SELFPAY ==
[2021-10-09 11:07] LABS: INR 1.98 (0.9-1.1); Prothrombin Time 21.3 seconds (10.1-12.5)
== END ==
PROVIDERS: PCP Internal Medicine Adolescent Medicine; Visit Provider Internal Medicine Adolescent Medicine
DX: Z51.81 Encounter for therapeutic drug level monitoring (principal); Z79.01 Long term (current) use of anticoagulants; I63.50 Cerebral infarction due to unspecified occlusion or stenosis of unspecified cerebral artery
CPT/HCPCS: 36415; 85610

== ENCOUNTER → 2021-11-06 10:13 | Outpatient (CLI) | payer MEDICARE, SELFPAY ==
[2021-11-06 10:59] LABS: INR 2.44 (0.9-1.1); Prothrombin Time 25.1 seconds (10.1-12.5)
== END ==
PROVIDERS: PCP Internal Medicine Adolescent Medicine; Visit Provider Internal Medicine Adolescent Medicine
DX: I63.50 Cerebral infarction due to unspecified occlusion or stenosis of unspecified cerebral artery (principal); Z51.81 Encounter for therapeutic drug level monitoring; Z79.01 Long term (current) use of anticoagulants
CPT/HCPCS: 36415; 85610

== ENCOUNTER → 2021-12-05 14:10 | Outpatient (CLI) | payer MEDICARE, SELFPAY ==
[2021-12-05 15:50] LABS: INR 2.25 (0.9-1.1); Prothrombin Time 23.2 seconds (10.1-12.5)
== END ==
PROVIDERS: PCP Internal Medicine Adolescent Medicine; Visit Provider Internal Medicine Adolescent Medicine
DX: Z51.81 Encounter for therapeutic drug level monitoring (principal); Z79.01 Long term (current) use of anticoagulants
CPT/HCPCS: 36415; 85610

== ENCOUNTER → 2021-12-30 11:34 | Outpatient (CLI) | payer MEDICARE, SELFPAY ==
[2021-12-30 12:13] LABS: Prothrombin Time 19.8 seconds (10.1-12.5)
== END ==
PROVIDERS: PCP Internal Medicine Adolescent Medicine; Visit Provider Internal Medicine Adolescent Medicine
DX: Z51.81 Encounter for therapeutic drug level monitoring (principal); Z79.01 Long term (current) use of anticoagulants
CPT/HCPCS: 36415; 85610

== ENCOUNTER → 2022-02-03 12:39 | Outpatient (CLI) | payer MEDICARE, SELFPAY ==
[2022-02-03 13:03] LABS: Prothrombin Time 21.7 seconds (10.1-12.5)
== END ==
PROVIDERS: PCP Internal Medicine Adolescent Medicine; Visit Provider Internal Medicine Adolescent Medicine
DX: Z51.81 Encounter for therapeutic drug level monitoring (principal); Z79.01 Long term (current) use of anticoagulants
CPT/HCPCS: 36415; 85610

== ENCOUNTER → 2022-02-26 12:21 | Outpatient (CLI) | payer MEDICARE, SELFPAY ==
[2022-02-26 13:14] LABS: INR 2.08 (0.9-1.1); Prothrombin Time 21.6 seconds (10.1-12.5)
== END ==
PROVIDERS: PCP Internal Medicine Adolescent Medicine; Visit Provider Internal Medicine Adolescent Medicine
DX: Z51.81 Encounter for therapeutic drug level monitoring (principal); Z79.01 Long term (current) use of anticoagulants
CPT/HCPCS: 36415; 85610

== ENCOUNTER → 2022-03-03 14:38 | Outpatient (CLI) | payer MEDICARE, SELFPAY ==
[2022-03-03 14:49] LABS: Adenovirus F 40/41, stool Not Detected (NotDetected); Astrovirus Not Detected (NotDetected); Campylobacter Not Detected (NotDetected); Clostridium Difficile A/B, PCR Not Detected (NotDetected); Cryptosporidium Not Detected (NotDetected); Cyclospora Cayetanesis Not Detected (NotDetected); Entamoeba histolytica Not Detected (NotDetected); Enteroaggregative E coli Not Detected (NotDetected); Enteropathogenic E coli Not Detected (NotDetected); Enterotoxigenic E coli Not Detected (NotDetected); Giardia lamblia Not Detected (NotDetected); Norovirus Not Detected (NotDetected); Plesimonas Shigalloides, PCR Not Detected (NotDetected); Rotavirus A Not Detected (NotDetected); Salmonella, PCR Not Detected (NotDetected); Sapovirus Not Detected (NotDetected); Shiga-like toxin E coli Not Detected (NotDetected); Shigella Enterovasive E coli Not Detected (NotDetected); Vibrio Cholerae Not Detected (NotDetected); Vibrio, PCR Not Detected (NotDetected); Yersinia Entercolitica, PCR Not Detected (NotDetected)
[2022-03-07 10:18] LABS: H. pylori Stool Ag, EIA Negative (Negative)
== END ==
PROVIDERS: PCP Internal Medicine Adolescent Medicine; Visit Provider Internal Medicine Adolescent Medicine
DX: R10.13 Epigastric pain (principal)
CPT/HCPCS: 87205; 87338; 87507

== ENCOUNTER → 2022-03-31 15:18 | Outpatient (CLI) | payer MEDICARE, SELFPAY ==
[2022-03-31 16:37] LABS: Prothrombin Time 18.8 seconds (10.1-12.5)
== END ==
PROVIDERS: PCP Internal Medicine Adolescent Medicine; Visit Provider Internal Medicine Adolescent Medicine
DX: Z51.81 Encounter for therapeutic drug level monitoring (principal); Z79.01 Long term (current) use of anticoagulants
CPT/HCPCS: 36415; 85610

== ENCOUNTER → 2022-06-13 14:36 | Outpatient (CLI) | payer MEDICARE, SELFPAY ==
[2022-06-13 16:01] LABS: INR 3.13 (0.9-1.1); Prothrombin Time 31.7 seconds (10.1-12.5)
== END ==
PROVIDERS: PCP Internal Medicine Adolescent Medicine; Visit Provider Internal Medicine Adolescent Medicine
DX: Z51.81 Encounter for therapeutic drug level monitoring (principal); Z79.01 Long term (current) use of anticoagulants
CPT/HCPCS: 36415; 85610

== ENCOUNTER → 2022-07-10 13:09 | Outpatient (CLI) | payer MEDICARE, SELFPAY ==
[2022-07-10 14:40] LABS: INR 2.38 (0.9-1.1); Prothrombin Time 24.5 seconds (10.1-12.5)
== END ==
PROVIDERS: PCP Internal Medicine Adolescent Medicine; Visit Provider Internal Medicine Adolescent Medicine
DX: Z51.81 Encounter for therapeutic drug level monitoring (principal); Z79.01 Long term (current) use of anticoagulants
CPT/HCPCS: 36415; 85610

== ENCOUNTER → 2022-08-12 11:33 | Outpatient (CLI) | payer MEDICARE, SELFPAY ==
[2022-08-12 12:02] LABS: INR 3.15 (0.9-1.1); Prothrombin Time 31.9 seconds (10.1-12.5)
== END ==
PROVIDERS: PCP Internal Medicine Adolescent Medicine; Visit Provider Internal Medicine Adolescent Medicine
DX: Z51.81 Encounter for therapeutic drug level monitoring (principal); Z79.01 Long term (current) use of anticoagulants
CPT/HCPCS: 36415; 85610

== ENCOUNTER → 2022-08-21 10:38 | Outpatient (CLI) | payer MEDICARE, SELFPAY ==
[2022-08-21 11:40] LABS: Prothrombin Time 21.7 seconds (10.1-12.5)
== END ==
PROVIDERS: PCP Internal Medicine Adolescent Medicine; Visit Provider Internal Medicine Adolescent Medicine
DX: Z79.01 Long term (current) use of anticoagulants (principal); Z51.81 Encounter for therapeutic drug level monitoring
CPT/HCPCS: 36415; 85610

== ENCOUNTER → 2022-09-16 11:48 | Outpatient (CLI) | payer MEDICARE, SELFPAY ==
[2022-09-16 12:25] LABS: INR 3.03 (0.9-1.1); Prothrombin Time 30.7 seconds (10.1-12.5)
== END ==
PROVIDERS: PCP Internal Medicine Adolescent Medicine; Visit Provider Internal Medicine Adolescent Medicine
DX: Z79.01 Long term (current) use of anticoagulants (principal); Z51.81 Encounter for therapeutic drug level monitoring
CPT/HCPCS: 36415; 85610

== ENCOUNTER → 2022-10-15 15:07 | Outpatient (CLI) | payer MEDICARE, SELFPAY ==
[2022-10-15 17:05] LABS: INR 2.38 (0.9-1.1); Prothrombin Time 24.3 seconds (10.1-12.5)
== END ==
PROVIDERS: PCP Internal Medicine Adolescent Medicine; Visit Provider Internal Medicine Adolescent Medicine
DX: Z79.01 Long term (current) use of anticoagulants (principal); Z51.81 Encounter for therapeutic drug level monitoring
CPT/HCPCS: 36415; 85610

== ENCOUNTER → 2022-11-26 12:32 | Outpatient (CLI) | payer MEDICARE, SELFPAY ==
[2022-11-26 13:34] LABS: INR 2.87 (0.9-1.1); Prothrombin Time 28.9 seconds (10.1-12.5)
== END ==
PROVIDERS: PCP Internal Medicine Adolescent Medicine; Visit Provider Internal Medicine Adolescent Medicine
DX: Z79.01 Long term (current) use of anticoagulants (principal)
CPT/HCPCS: 36415; 85610

== ENCOUNTER → 2022-12-22 10:43 | Outpatient (CLI) | payer MEDICARE, SELFPAY ==
--- NOTE | 2022-12-22 11:06 | XR_ITS ---
FINAL REPORT CLINICAL HISTORY: LOW BACK PAIN, no injury COMPARISON: None FINDINGS: LUMBOSACRAL SPINE SERIES Five views of the lumbosacral spine were obtained. There is no fracture present. There is moderate to severe degenerative change with multilevel osteophytes. There is retrolisthesis of L3 on L4 measuring about 10 mm. An IVC filter is present. IMPRESSION: Moderate to severe degenerative change without acute process. Reviewed, Interpreted and Dictated by Shukri Gil III, MD Transcribed by Anh Jones Authenticated and [facility]
[2022-12-22 11:18] LABS: Basophils % 0.5 % (0.1-2.0); Eosinophils # 0.2 K/mm3 (0.0-0.4); Hematocrit 28.4 % (42.0-52.0); Hemoglobin 9.1 g/dL (14.1-18.0); Mean Corpuscular HGB Conc 31.9 g/dL (31.8-35.4); Mean Corpuscular Hemoglobin 26.4 pg (27.0-31.2); Mean Corpuscular Volume 82.6 fl (80-94); Mean Platelet Volume 8.3 fl (7.4-10.4); Monocytes # 0.3 K/mm3 (0.1-1.0); Monocytes % 6.5 % (1.7-9.3); Neutrophils # 3.5 K/mm3 (1.8-7.8); Neutrophils % 70.1 % (37.0-80.0); Platelet Count 329 K/mm3 (142-424); Red Blood Count 3.44 M/mm3 (4.60-6.20); Red Cell Distribution Width 14.8 % (11.5-17.5); Reticulocyte % (Auto) 1.4 % (0.9-3.2)
[2022-12-22 11:28] LABS: Prothrombin Time 21.6 seconds (10.1-12.5)
[2022-12-22 11:51] LABS: Chloride 107 mmol/L (98-107); Sodium 142 mmol/L (136-145)
[2022-12-22 11:52] LABS: Potassium 4.7 mmoL/L (3.5-5.1)
[2022-12-22 11:54] LABS: Alanine Aminotransferase 16 U/L (12-78); Alkaline Phosphatase 66 U/L (38-126); Anion Gap 12.7 mEq/L (5-15); Aspartate Amino Transferase 25 U/L (17-59); Bilirubin,Total 0.3 mg/dl (0.2-1.3); Blood Urea Nitrogen 31 mg/dl (9-20); Calcium 8.5 mg/dl (8.4-10.2); Carbon Dioxide 27 mmol/L (22.0-30.0); Estimated Glomerular Filt Rate 39 ml/min (>60); GFR (African American) 48 ML/MIN (>60); Glucose 124 mg/dl (74-100)
[2022-12-22 11:55] LABS: Albumin Level 4.1 g/dl (3.5-5.0); Albumin/Globulin Ratio 1.6 (1.1-1.8); Globulin 2.6 g/dL (1.3-3.2); Total Protein,Serum 6.7 g/dl (6.3-8.2)
[2022-12-22 12:31] LABS: Ferritin 10.1 ng/ml (17.9-464)
[2022-12-22 12:50] LABS: Iron 26 ug/dL (49-181)
[2022-12-22 12:51] LABS: Total Iron Binding Capacity 420 ug/dL (261-462)
[2022-12-22 12:57] LABS: Vitamin B12 334 pg/mL (239-931)
== END ==
LOC: LAB 10:49
PROVIDERS: PCP Internal Medicine Adolescent Medicine; Visit Provider Internal Medicine Adolescent Medicine
DX: D64.9 Anemia, unspecified (principal); Z86.711 Personal history of pulmonary embolism; R06.09 Other forms of dyspnea; M54.50 Low back pain, unspecified
CPT/HCPCS: 36415; 72110; 80053; 82607; 82728; 83540; 83550; 85025; 85044; 85610

== ENCOUNTER → 2022-12-31 10:26 | Outpatient (CLI) | payer MEDICARE, SELFPAY ==
--- OUTSIDE RECORDS SUMMARY | 2022-12-31 10:30 | XMS_ITS | Patient Health Record ---
Author Name Unknown Organization [facility] Address [address] [place] [id number] Care Team Providers Care Lumber Handler Name Role Phone Gonzales Freed Primary Care Provider [phone] Carlos Wick Unavailable [phone] Radha Moore Unavailable [phone] ALLERGIES No Known Allergies RESULTS Component Value Reference Range Notes Urine Dip Reviewed date:12/14/2022 01:58:56 PM Interpretation: Performing Lab: Notes/Report: EDIN 15 Nitrite, Urine neg Urobilinogen,Semi-Qn 3.5 Protein 0.15 pH 6.0 Occult Blood neg Specific [place] 1.025 Ketones neg Bilirubin neg Glucose neg Appearance clear Urine-Color yellow Microscopic Examination WBC Esterase Urinalysis Gross Exam Microscopic Examination PT/INR Reviewed date:12/14/2022 01:58:56 PM Interpretation: Performing Lab: Notes/Report: PT INR 4.1 URINALYSIS, COMPLETE W/REFLE X TO CULTURE Rev
[2022-12-31 11:17] LABS: INR 2.52 (0.9-1.1); Prothrombin Time 25.6 seconds (10.1-12.5)
== END ==
PROVIDERS: PCP Internal Medicine Adolescent Medicine; Visit Provider Internal Medicine Adolescent Medicine
DX: Z79.01 Long term (current) use of anticoagulants (principal)
CPT/HCPCS: 36415; 85610

== ENCOUNTER 2023-01-12 08:16 | Day surgery (SDC) | payer MEDICARE, SELFPAY ==
[2023-01-09 13:45] VITALS: BMI 28.8
[2023-01-12 08:38] VITALS: BP 157/91; PULSE 101; RESP 18; TEMP 36.6; O2SAT 96
--- NOTE | 2023-01-12 08:40 | P.PNANES_ITS ---
[facility] Disclaimer: The information contained in this section may have been updated after the patient was seen, as this information can be updated by other users. Medical History DVT (deep venous thrombosis) History of bradycardia History of E. coli septicemia History of pancreatitis History of pulmonary embolism HLD (hyperlipidemia) HTN (hypertension), benign Surgical History History of cholecystectomy Family History Other Family history of kidney disease Hypertension Social History Smoking Status: Never smoker alcohol intake: never counseling provided: none substance use type: denies use current occupational status: retired Travel in the last 8 weeks: None household members: spouse housing: house [facility] Anesthesia Checklist Patient Identification Patient Identification: Arm Band, Family and Verbal (Name & ) Structural Data Admitted From: Home Planned Operative Procedure/s: egd/colonoscopy Consent for Planned Operative Procedure(s) Verified: Yes Verified Documents: Surgical Consent and History and Physical NPO Status Verified Time NPO: 05:30 (Water w/bowel prep) Chart Verification Results Verified: CBC, BMP, PT, PTT, INR and ECG Additional verifications Patient : No Anesthesia Reactions: No Cardiovascular Assessment Heart Sounds: S1 & S2 Pulse Rhythm: Irregular Peripheral Edema: No Airway Assessment Mallampati Score:: Class II C-Spine Mobility Assessed: Yes (FROM) TMJ Mobility Assessed: Yes Dentition: Dentures-good fit (Top. Removed) Neurological Assessment Level of Consciousness: Awake, Alert, Appropriate and Follows Commands Hx Seizures: No Numbness or tingling in extremities: No Anesthesia Plan Anesthesia Risk discussed: Yes Anesthesia Plan: Verified ASA Class: III Anesthesia Type: MAC
[2023-01-12 09:05] LABS: INR 1.23 (0.9-1.1); Prothrombin Time 13.1 seconds (10.1-12.5)
[2023-01-12 09:42] VITALS: O2SAT 94
[2023-01-12 10:39] VITALS: BP 97/50; PULSE 79; RESP 17; TEMP 36.6; O2SAT 95
--- NOTE | 2023-01-12 10:40 | HMH.SCOPE ---
Procedure: Date: 01/12/23 Patient Date of :: 1945 Procedure Performed:: Esophagogastroduodenoscopy with biopsies Total colonoscopy with polypectomy using biopsy forceps and hot and cold snare Indications:: Patient is a 77-year-old referred by Dr. Chandu Wesley for possible EGD and colonoscopy. He has a history of DVT on chronic warfarin anticoagulation. Blood work has revealed findings of anemia with hemoglobin of approximately 9 and hematocrit of 28. This is a change from previous baseline hemoglobin of approximately 13 or 14. In July 2021 apparently the patient had presented with findings consistent with cholangitis with biliary obstruction. He was sent to tertiary facility where he was treated apparently with ERCP and ultimately cholecystectomy. He denies any symptoms of melena or rectal bleeding. He was sent for ponce endoscopy to evaluate for potential source of anemia and if unremarkable likely will need hematology appointment. Performing Provider:: Shukri Vizcarra MD Referring Provider:: Chandu Wesley MD Sedation:: MAC sedation Procedure:: Patient history was obtained and appropriate physical examination was performed. Patient's medications and allergies were reviewed. Informed consent was obtained after explaining the benefits, alternatives, and risks of the procedure including, but not limited to, bleeding, perforation, missed lesions, and adverse reaction to anesthesia medications. Patient was transported to endoscopy procedure room. Patient was connected to monitoring devices. Throughout the procedure the patient's blood pressure, pulse, and oxygen saturations were monitored continuously. Patient identification and planned procedure were verified by the staff. Patient was positioned in lateral decubitus position. Attention was first turned to upper endoscopy. Olympus endoscope was inserted via the oropharynx. Esophagus was cannulated. There was some findings of esophageal dysmotility. Gastroesophageal junction was encountered at 40 cm from the incisors. Stomach was cannulated and insufflated. There were multiple mucosal polyps mostly in the mid body of the stomach. These were possibly fundic gland polyps. There were multiple areas indicative of possible slow hemorrhagic oozing with no active bleeding. Pylorus was traversed. There was similar appearing widespread area of polypoid appearing tissue within the duodenal bulb. Distal duodenum was unremarkable. Multiple biopsies were obtained of the polypoid tissue within the duodenal bulb. Some of this showed areas of likely possible slow hemorrhagic oozing as well. Endoscope was withdrawn into the stomach. Gastric antral mucosal biopsies obtained for assessment and for H. pylori. Multiple biopsies were obtained of the widespread polypoid tissue in the mid body of the stomach for histopathologic analysis. A couple biopsies were obtained at the gastroesophageal junction. Endoscope was withdrawn. Patient was then repositioned for colonoscopy. Digital anorectal exam was performed. Variable stiffness Olympus colonoscope was inserted and advanced under direct visualization to the cecum. Adequacy of the colonic preparation was noted. The colonoscope was advanced a short distance into the terminal ileum. The colonoscope was then slowly withdrawn while carefully examining the color, texture, anatomy, and integrity of the mucosoa circumferentially. Within the rectum retroflexion was performed. Colonoscope was then withdrawn. The colonic prep appeared adequate. Within the cecum there was a tiny diminutive polyp, possibly lymphoid aggregate, removed with cold biopsy forceps. There was a possible tiny diminutive adenomatous polyp adjacent to the appendiceal orifice removed with cold biopsy forceps and labeled periappendiceal polyp. On the ileocecal valve there was a subtle sessile appearing polyp removed with cold cutting snare with residual tissue removed with biops
[2023-01-12 10:49] VITALS: BP 102/51; PULSE 77; RESP 18; O2SAT 98
[2023-01-12 10:59] VITALS: BP 123/45; PULSE 70; RESP 18; O2SAT 98
[2023-01-12 11:09] VITALS: BP 121/66; PULSE 78; RESP 18; O2SAT 98
== END 2023-01-12 11:25 | disposition home or self-care (01) ==
PROVIDERS: PCP Internal Medicine Adolescent Medicine; Visit Provider Surgery
PROC: 0DJ08ZZ Inspection of Upper Intestinal Tract, Via Natural or Artificial Opening Endoscopic (ICD-10-PCS; CPT 43235; principal; 2023-01-12 09:00)
DX: D64.9 Anemia, unspecified (principal); K22.4 Dyskinesia of esophagus; K57.30 Diverticulosis of large intestine without perforation or abscess without bleeding; Q40.2 Other specified congenital malformations of stomach; K31.9 Disease of stomach and duodenum, unspecified; K20.90 Esophagitis, unspecified without bleeding; D12.0 Benign neoplasm of cecum; D12.2 Benign neoplasm of ascending colon
CPT/HCPCS: 43239; 45380; 45385; 85610; 88305; J2704

== ENCOUNTER → 2023-01-21 12:01 | Outpatient (CLI) | payer MEDICARE, SELFPAY ==
[2023-01-21 13:09] LABS: Basophils % 0.3 % (0.1-2.0); Eosinophils # 0.2 K/mm3 (0.0-0.4); Hematocrit 29.8 % (42.0-52.0); Hemoglobin 9.1 g/dL (14.1-18.0); Lymphocytes # 1.2 K/mm3 (0.7-4.5); Lymphocytes % 20.1 % (10-50); Mean Corpuscular HGB Conc 30.4 g/dL (31.8-35.4); Mean Platelet Volume 7.7 fl (7.4-10.4); Monocytes # 0.3 K/mm3 (0.1-1.0); Monocytes % 5.7 % (1.7-9.3); Neutrophils # 4.1 K/mm3 (1.8-7.8); Platelet Count 339 K/mm3 (142-424); Red Blood Count 3.77 M/mm3 (4.60-6.20); Red Cell Distribution Width 15.7 % (11.5-17.5); White Blood Count 5.8 K/mm3 (4.8-10.8)
[2023-01-21 13:16] LABS: INR 1.49 (0.9-1.1); Prothrombin Time 15.7 seconds (10.1-12.5)
[2023-01-21 13:38] LABS: Iron 25 ug/dL (49-181)
[2023-01-21 13:53] LABS: Total Iron Binding Capacity 532 ug/dL (261-462)
[2023-01-21 14:13] LABS: Ferritin 6.55 ng/ml (17.9-464)
== END ==
PROVIDERS: PCP Internal Medicine Adolescent Medicine; Visit Provider Internal Medicine Medical Oncology
DX: Z79.01 Long term (current) use of anticoagulants (principal); D50.9 Iron deficiency anemia, unspecified
CPT/HCPCS: 36415; 82728; 83540; 83550; 85025; 85610

== ENCOUNTER → 2023-02-05 14:12 | Outpatient (CLI) | payer MEDICARE, SELFPAY ==
[2023-02-05 15:09] LABS: Prothrombin Time 27.3 seconds (10.1-12.5)
== END ==
PROVIDERS: PCP Internal Medicine Adolescent Medicine; Visit Provider Internal Medicine Adolescent Medicine
DX: Z79.01 Long term (current) use of anticoagulants (principal)
CPT/HCPCS: 36415; 85610

== ENCOUNTER 2023-03-16 14:12 | Outpatient (CLI) | payer MEDICARE, SELFPAY ==
[2023-03-16 14:46] LABS: INR 2.13 (0.9-1.1); Prothrombin Time 21.9 seconds (10.1-12.5)
[2023-03-16 14:50] LABS: Basophils % 0.4 % (0.1-2.0); Eosinophils # 0.2 K/mm3 (0.0-0.4); Eosinophils % 2.7 % (0.1-12.0); Hematocrit 42.3 % (42.0-52.0); Hemoglobin 13.1 g/dL (14.1-18.0); Lymphocytes # 1.2 K/mm3 (0.7-4.5); Lymphocytes % 17.8 % (10-50); Mean Corpuscular HGB Conc 30.9 g/dL (31.8-35.4); Mean Corpuscular Hemoglobin 26.5 pg (27.0-31.2); Mean Corpuscular Volume 85.8 fl (80-94); Mean Platelet Volume 7.8 fl (7.4-10.4); Monocytes # 0.3 K/mm3 (0.1-1.0); Monocytes % 3.8 % (1.7-9.3); Neutrophils % 75.3 % (37.0-80.0); Platelet Count 238 K/mm3 (142-424); Red Blood Count 4.93 M/mm3 (4.60-6.20); Red Cell Distribution Width 21.3 % (11.5-17.5); White Blood Count 6.7 K/mm3 (4.8-10.8)
[2023-03-16 18:58] LABS: Iron 79 ug/dL (49-181)
[2023-03-16 19:11] LABS: Total Iron Binding Capacity 417 ug/dL (261-462)
[2023-03-16 22:39] LABS: Ferritin 26.7 ng/ml (17.9-464)
== END 2023-03-16 23:59 ==
LOC: LAB 14:13
PROVIDERS: Internal Medicine Medical Oncology; PCP Internal Medicine Adolescent Medicine; Visit Provider Internal Medicine Adolescent Medicine
DX: D50.9 Iron deficiency anemia, unspecified (principal); Z51.81 Encounter for therapeutic drug level monitoring; Z79.01 Long term (current) use of anticoagulants
CPT/HCPCS: 36415; 82728; 83540; 83550; 85025; 85610

== ENCOUNTER 2023-06-08 09:59 | Outpatient (CLI) | payer MEDICARE, SELFPAY ==
[2023-06-08 10:43] LABS: INR 2.45 (0.9-1.1)
== END 2023-06-08 23:59 ==
LOC: LAB 10:00
PROVIDERS: PCP Internal Medicine Adolescent Medicine; Visit Provider Internal Medicine Adolescent Medicine
DX: Z79.01 Long term (current) use of anticoagulants (principal)
CPT/HCPCS: 36415; 85610

== ENCOUNTER 2023-07-06 11:43 | Outpatient (CLI) | payer MEDICARE, SELFPAY ==
[2023-07-06 12:36] LABS: Prothrombin Time 30.2 seconds (10.1-12.5)
== END 2023-07-06 23:59 | disposition home or self-care (01) ==
LOC: LAB 11:45
PROVIDERS: PCP Internal Medicine Adolescent Medicine; Visit Provider Internal Medicine Adolescent Medicine
DX: Z79.01 Long term (current) use of anticoagulants (principal); Z51.81 Encounter for therapeutic drug level monitoring
CPT/HCPCS: 36415; 85610

== ENCOUNTER 2023-08-07 10:20 | Outpatient (CLI) | payer MEDICARE, SELFPAY ==
[2023-08-07 10:58] LABS: INR 2.91 (0.9-1.1); Prothrombin Time 29.3 seconds (10.1-12.5)
== END 2023-08-07 23:59 | disposition home or self-care (01) ==
LOC: LAB 10:21
PROVIDERS: PCP Internal Medicine Adolescent Medicine; Visit Provider Internal Medicine Adolescent Medicine
DX: Z51.81 Encounter for therapeutic drug level monitoring (principal); Z79.01 Long term (current) use of anticoagulants; R71.8 Other abnormality of red blood cells
CPT/HCPCS: 36415; 85610

== ENCOUNTER 2023-09-01 11:46 | Outpatient (CLI) | payer MEDICARE, SELFPAY ==
[2023-09-01 12:19] LABS: INR 2.59 (0.9-1.1); Prothrombin Time 26.4 seconds (10.1-12.5)
== END 2023-09-01 23:59 | disposition home or self-care (01) ==
LOC: LAB 11:47
PROVIDERS: PCP Internal Medicine Adolescent Medicine; Visit Provider Internal Medicine Adolescent Medicine
DX: Z79.01 Long term (current) use of anticoagulants (principal)
CPT/HCPCS: 36415; 85610

== ENCOUNTER 2023-09-18 10:06 | Outpatient (CLI) | payer MEDICARE, SELFPAY ==
[2023-09-18 10:47] LABS: Basophils % 0.7 % (0.1-2.0); Eosinophils # 0.3 K/mm3 (0.0-0.4); Eosinophils % 4.2 % (0.1-12.0); Hematocrit 40.3 % (42.0-52.0); Hemoglobin 13.5 g/dL (14.1-18.0); Lymphocytes # 1.5 K/mm3 (0.7-4.5); Lymphocytes % 25.7 % (10-50); Mean Corpuscular HGB Conc 33.5 g/dL (31.8-35.4); Mean Corpuscular Hemoglobin 33.2 pg (27.0-31.2); Mean Corpuscular Volume 99.1 fl (80-94); Mean Platelet Volume 7.4 fl (7.4-10.4); Monocytes # 0.4 K/mm3 (0.1-1.0); Monocytes % 6.2 % (1.7-9.3); Neutrophils # 3.8 K/mm3 (1.8-7.8); Neutrophils % 63.3 % (37.0-80.0); Platelet Count 256 K/mm3 (142-424); Red Blood Count 4.06 M/mm3 (4.60-6.20); Red Cell Distribution Width 14.7 % (11.5-17.5)
[2023-09-18 12:04] LABS: Iron 85 ug/dL (49-181)
[2023-09-18 12:14] LABS: Total Iron Binding Capacity 370 ug/dL (261-462)
== END 2023-09-18 23:59 | disposition home or self-care (01) ==
LOC: LAB 10:11
PROVIDERS: PCP Internal Medicine Adolescent Medicine; Visit Provider Internal Medicine Medical Oncology
DX: D50.9 Iron deficiency anemia, unspecified (principal)
CPT/HCPCS: 36415; 82728; 83540; 83550; 85025

== ENCOUNTER 2023-10-02 13:21 | Outpatient (CLI) | payer MEDICARE, SELFPAY ==
[2023-10-02 14:04] LABS: INR 4.05 (0.9-1.1); Prothrombin Time 39.5 seconds (10.1-12.5)
== END 2023-10-02 23:59 | disposition home or self-care (01) ==
LOC: LAB 13:22
PROVIDERS: PCP Internal Medicine Adolescent Medicine; Visit Provider Internal Medicine Adolescent Medicine
DX: Z79.01 Long term (current) use of anticoagulants (principal)
CPT/HCPCS: 36415; 85610

== ENCOUNTER 2023-10-19 11:24 | Outpatient (CLI) | payer MEDICARE, SELFPAY ==
[2023-10-19 12:29] LABS: INR 2.48 (0.9-1.1); Prothrombin Time 25.4 seconds (10.1-12.5)
== END 2023-10-19 23:59 | disposition home or self-care (01) ==
LOC: LAB 11:28
PROVIDERS: PCP Internal Medicine Adolescent Medicine; Visit Provider Internal Medicine Adolescent Medicine
DX: Z79.01 Long term (current) use of anticoagulants (principal)
CPT/HCPCS: 36415; 85610

== ENCOUNTER 2023-11-09 11:56 | Outpatient (CLI) | payer MEDICARE, SELFPAY ==
[2023-11-09 12:24] LABS: INR 2.66 (0.9-1.1)
== END 2023-11-09 23:59 | disposition home or self-care (01) ==
LOC: LAB 11:58
PROVIDERS: PCP Internal Medicine Adolescent Medicine; Visit Provider Internal Medicine Adolescent Medicine
DX: Z79.01 Long term (current) use of anticoagulants (principal)
CPT/HCPCS: 36415; 85610

== ENCOUNTER 2024-01-25 12:05 | Outpatient (CLI) | payer MEDICARE, SELFPAY ==
[2024-01-25 13:10] LABS: INR 2.17 (0.9-1.1); Prothrombin Time 22.5 seconds (10.1-12.5)
== END 2024-01-25 23:59 | disposition home or self-care (01) ==
LOC: LAB 12:11
PROVIDERS: PCP Internal Medicine Adolescent Medicine; Visit Provider Internal Medicine Adolescent Medicine
DX: Z79.01 Long term (current) use of anticoagulants (principal)
CPT/HCPCS: 36415; 85610

== ENCOUNTER 2024-03-03 15:01 | Outpatient (CLI) | payer MEDICARE, SELFPAY ==
[2024-03-03 15:41] LABS: INR 2.21 (0.9-1.1); Prothrombin Time 22.9 seconds (10.1-12.5)
== END 2024-03-03 23:59 | disposition home or self-care (01) ==
LOC: LAB 15:01
PROVIDERS: PCP Internal Medicine Adolescent Medicine; Visit Provider Internal Medicine Adolescent Medicine
DX: Z79.01 Long term (current) use of anticoagulants (principal)
CPT/HCPCS: 36415; 85610

== ENCOUNTER 2024-06-08 10:36 | Outpatient (CLI) | payer MEDICARE, SELFPAY ==
--- OUTSIDE RECORDS SUMMARY | 2024-06-08 10:39 | XMS_ITS | Data Portability ---
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 Hemoglobin currently stable around 9-9/2. He is currently taking iron. Suggest ascorbic acid use with iron. Patient offered repeat EGD for evaluation as well as capsule endoscopy. Would like to defer for now. [email or web address] Not available 02/06/2023 14:18:30 Plan of Treatment Reminders Order Date Submit Date Provider Last Modified By Organization Details Last Modified Time Details Appointments None record ed. Lab None record ed. Referral None record ed. Procedures None record ed. Surgeries None record ed. Imaging None record ed. Medication Orders None record ed. Patient TargetsNo targets recorded. Patient InstructionsNo instructions recorded. Reason for Referral None Reported. Medical Equipment None Reported. Medications Name Sig Start Date Stop Date Status Note LastModified by Organization Details LastModified Time warfarin 3 mg tablet Take 1 tablet every day by oral route. active Not Available Not Available No t Available tamsulosin 0.4 mg capsule Take 1 capsule every day by oral route. active Not Available Not Available No t Available ferrous sulfate 325 mg (65 mg iron) tablet Take 1 tablet every day by oral route. active Not Available Not Available No t Available folic acid 1 mg tablet Take 1 tablet every day by oral route. active Not Available Not Available No t Available losartan 100 mg tablet Take 1 tablet every day by oral route. active Not Available Not Available No t Available fluoxetine 20 mg capsule Take 1 capsule every day by oral route. active Not Available Not Available No t Available finasteride 5 mg tablet Take 1 tablet every day by oral route. active Not Available Not Available No t Available Vitals Date Recorded Body weight Body temperature Body mass index (BMI) Body height Oxygen saturation Oxygen saturation in Arterial blood by Pulse oximetry Heart rate Heart rate Systolic blood pressure Diastolic blood pressure Provider Name and Address Organization Details Last Updated DateTime 3 26609.0 6 g 97.3 [degF] 30 kg/m2 172.72 cm 98 % 98 % 58 /min 59 /min 176 mm[Hg] 64 mm[Hg] Sheree Fay [facility] & [place] 3 10:16:17 Social History None recorded. Functional Status None recorded. Mental Status None recorded. Family History Nothing Reported. Medical History No medical history recorded. Past Encounters Encounter ID Performer Location Encounter Start Date Encounter Closed Date Diagnosis/Indication Diagnosis SNOMED-CT Code Diagnosis ICD10 Code Diagnosis Note [id number] Ty Sandoval MD [facility] [address] [place] [address] 02/06/2023 10:04:49 02/06/2023 10:40:18 Iron deficiency anemia 00325562 D50.9 History of adenomatous polyp of colon 983689999 Z86.010 Fundic gla nd polyposis of stomach 155498580 K31.7 Health Concerns Section Related Observation LastModified by Organization Detai ls LastModified Time None Recorded Concern Status LastModified by Organization Details LastModified Time None Recorded Advance Directives Directive None Recorded Payers Encounter Date Sequence Insurance Name Policy Number Policy Mitchell Covered Member ID Mitchell Member ID Guarantor Name 02/06/2023 1 [employer] (MEDICARE REPLACEMENT/A DVANTAGE - PPO) Murtaza Cochran [id number] Murtaza Cochran Notes Date Note Type Note Provider Name and Address Organization Details Recorded Time 02/06/2023 text/html Mr. Langston is a very pleasant 77-year-old male who presents for evaluation of anemia. He was referred by Dr. Shukri Vizcarra. he underwent EGD and colonoscopy by Dr. Hao alvarez. He was found to have several gastric fundic gland polyps. No other source of blood loss was identified. He did have several adenomatous polyps identified on colonoscopy. He was suggested to undergo repeat surveillance colonoscopy in 2 years. He is following with hematology In [place] as well. Ty Sandoval MD [facility], [place], [address], [facility] & [place] 02/06/2023 14:18:48
[2024-06-08 11:28] LABS: INR 2.69 (0.9-1.1); Prothrombin Time 27.3 seconds (10.1-12.5)
== END 2024-06-08 23:59 | disposition home or self-care (01) ==
LOC: LAB 10:38
PROVIDERS: PCP Internal Medicine Adolescent Medicine; Visit Provider Internal Medicine Adolescent Medicine
DX: Z79.01 Long term (current) use of anticoagulants (principal)
CPT/HCPCS: 36415; 85610

== ENCOUNTER 2024-07-06 13:23 | Outpatient (CLI) | payer MEDICARE, SELFPAY ==
--- OUTSIDE RECORDS SUMMARY | 2024-07-06 13:26 | XMS_ITS | Data Portability ---
Author Organization [facility] [place] [facility] F[facility]IC[facility] Valade[facility] Address [address] [place] [address] Assessment Encounter Date Assessment Date Assessment LastModified [...] Address Organization Details Last Updated DateTime 3 31020.0 6 g 97.3 [degF] 30 kg/m2 172.72 cm 98 % 98 % 58 /min 59 /min 176 mm[Hg] 64 mm[Hg] Sheree Fay [facility] & [place] 3 10:16:17 Social History None recorded. Functional Status None recorded. Mental Status None recorded. Family History Nothing Reported. Medical History No medical history recorded. Past Encounters Encounter ID Performer Location Encounter Start Date Encounter Closed Date Diagnosis/Indication Diagnosis SNOMED-CT Code Diagnosis ICD10 Code Diagnosis Note [id number] Ty Sandoval MD [facility] [address] [place] [address] 02/06/2023 10:04:49 02/06/2023 10:40:18 Iron deficiency anemia 04576859 D50.9 History of adenomatous polyp of colon 456656424 Z86.010 Fundic gla nd polyposis of stomach 922171170 K31.7 Health Concerns Section Related Observation LastModified by Organization Detai ls LastModified Time None Recorded Concern Status LastModified by Organization Details LastModified Time None Recorded Advance Directives Directive None Recorded Payers Insurance Date Sequence Insurance Name Policy Number Policy Mitchell Covered Member ID Mitchell Member ID Guarantor Name 02/09/2023 1 [employer] (MEDICARE REPLACEMENT/A DVANTAGE - PPO) Murtaza Cochran [id number] Murtaza Cochran Notes Date Note Type Note [...] years. He is following with hematology In [place] as well. Ty Sandoval MD [facility] [place], [address], [facility] & [place] 02/06/2023 14:18:48
[2024-07-06 14:08] LABS: INR 2.89 (0.9-1.1); Prothrombin Time 29.1 seconds (10.1-12.5)
== END 2024-07-06 23:59 | disposition home or self-care (01) ==
LOC: LAB 13:24
PROVIDERS: PCP Internal Medicine Adolescent Medicine; Visit Provider Internal Medicine Adolescent Medicine
DX: Z79.01 Long term (current) use of anticoagulants (principal)
CPT/HCPCS: 36415; 85610

== ENCOUNTER 2024-09-28 10:14 | Outpatient (CLI) | payer MEDICARE, SELFPAY ==
--- OUTSIDE RECORDS SUMMARY | 2024-09-28 10:17 | XMS_ITS | Patient Health Record ---
Author Organization [facility] Address [address] [place] [address] [place] [address] Care Team Providers Care Spread Cutter Name Role Phone Gonzales Freed Primary Care Provider [phone] Sheridan-Yo Andresza Unavailable Lizarraga, Yue Unavailable [phone] Allergies No Known Allergies Results Component Value Reference Range Flag Notes Prothrombin Time (PT) Reviewed date:05/02/2024 08:53:08 AM Interpretation: Performing Lab:[facility], [facility] [address] [place] [id number], Phone - [phone], Director - Susanna Notes/Report: INR 2.6 0.9-1.2 H Reference interval is for non-anticoagulated patients. . Suggested INR therapeutic range for Vitamin K antagonist therapy: Standard Dose (moderate intensity therapeutic range): 2.0 - 3.0 Higher intensity therapeutic range 2.5 - 3.5 Prothrombin Time 27.8 9.1-12.0 sec H Comp. Metabolic Panel (14) Reviewed date:12/11/2023 03:09:45 PM Interpretation: Performing Lab:[facility], [facility] [address] [place], [place] [id number], Phone - [phone], Director - Susanna Notes/Report: Glucose 131 70-99 mg/dL H BUN 20 8-27 mg/dL Creatinine 1.61 0.76-1.27 mg/dL H eGFR 44 >59 mL/min/1.73 L BUN/Creatinine Ratio 12 10-24 Sodium 147 134-144 mmol/L H Potassium 4.2 3.5-5.2 mmol/L Chloride 110 96-106 mmol/L H Carbon Dioxide, Total 25 20-29 mmol/L Calcium 8.6 8.6-10.2 mg/dL Protein, Total 6.0 6.0-8.5 g/dL Albumin 3.7 3.8-4.8 g/dL L Globulin, Total 2.3 1.5-4.5 g/dL Bilirubin, Total 0.4 0.0-1.2 mg/dL Alkaline Phosphatase 82 44-121 IU/L AST (SGOT) 16 0-40 IU/L ALT (SGPT) 10 0-44 IU/L PDF Report Reviewed date:12/11/2023 03:09:45 PM Interpretation: Performing Lab:[facility] [address] [id number], Phone - [phone], Director - MDTomasa Notes/Report: PDF Report1 [facility] Cardiovascular Risk Assessme nt Reviewed date:12/11/2023 03:09:45 PM Interpretation: Performing Lab:[facility] [address] [id number], Phone - [phone], Director - MDJoserier Notes/Report: Interpretation Note Supplement al report is available. PDF Not applicable Lipid Panel With LDL/HDL Rat io* Reviewed date:12/11/2023 03:09:45 PM Interpretation: Performing Lab:[facility] [address] [id number], Phone - [phone], Director - MDJoserier Notes/Report: Cholesterol, Total 137 100-199 mg/dL Triglycerides 83 0-149 mg/dL HDL Cholesterol 56 >39 mg/dL VLDL Cholesterol [place] 16 5-40 mg/dL LDL Chol Calc (NIH) 65 0-99 mg/dL LDL/HDL Ratio 1.2 0.0-3.6 ratio LDL/HDL Ratio Men Women 1/2 Avg.Risk 1.0 1.5 Avg.Risk 3.6 3.2 2X Avg.Risk 6.2 5.0 3X Avg.Risk 8.0 6.1 Microalb/Creat Ratio, Randm Ur* Reviewed date:12/11/2023 03:09:45 PM Interpretation: Performing Lab:[facility] [address] [place] [id number], Phone - [phone], Director - Susanna Notes/Report: Creatinine, Urine 141.9 Not Estab. mg/dL Albumin, Urine 186.2 Not Estab. ug/mL Alb/Creat Ratio 131 0-29 mg/g creat H Normal: 0 - 29 Moderately increased: 30 - 300 Severely increased: >300 Thyroid Panel With TSH Reviewed date:12/11/2023 03:09:45 PM Interpretation: Performing Lab:[facility] [address] [place] [id number], Phone - [phone], Director - Susanna Notes/Report: TSH 2.310 0.450-4.500 uIU/mL Thyroxine (T4) 7.7 4.5-12.0 ug/dL T3 Uptake 23 24-39 % L Free Thyroxine Index 1.8 1.2-4.9 Hemoglobin A1c* Reviewed date:12/11/2023 03:09:45 PM Interpretation: Performing Lab:[facility], [address] [place] [id number], Phone - [phone], Director - Susanna Notes/Report: Hemoglobin A1c 7.2 4.8-5.6 % H . Prediabetes: 5.7 - 6.4 Diabetes: >6.4 Glycemic control for adults with diabetes: <7.0 CBC With Differential/Platel et* Reviewed date:12/11/2023 03:09:45 PM Interpretation: Performing [facility], [address] [place] [id number], Phone - [phone], Director - Susanna Notes/Report: WBC 6.9 3.4-10.8 x10E3/uL RBC 4.08 4.14-5.80 x10E6/uL L Hemoglobin 12.4 13.0-17.7 g/dL L Hematocrit 38.0 37.5-51.0 % MCV 93 79-97 fL MCH 30.4 26.6-33.0 pg MCHC 32.6 31.5-35.7 g/dL RDW 12.5 11.6-15.4 % Platelets 211 150-450 x10E3/uL Neutrophils 69 Not Estab. % Lymphs 18 Not Estab. % Monocytes 7 Not Estab. % Eos 5 Not Estab. % Basos 1 Not Estab. % Neutrophils (Absolute) 4.8 1.4-7.0 x10E3/uL Lymphs (Absolute) 1.2 0.7-3.1 x10E3/uL Monocytes(Absolute) 0.5 0.1-0.9 x10E3/uL Eos (Absolute) 0.3 0.0-0.4 x10E3/uL Baso (Absolute) 0.0 0.0-0.2 x10E3/uL Immature Granulocytes 0 Not Estab. % Immature Grans (Abs) 0.0 0.0-0.1 x10E3/uL [facility] CKD Program Reviewed date:12/11/2023 03:09:44 PM Interpretation: Performing Lab:[facility] [id number], Phone - [phone], Director - Susanna Notes/Report: Interpretation Note Supplement al report is available. PDF . Covid 19 (Rapid) Reviewed date:12/15/2023 10:28:09 AM Interpretation:Positive Performing Lab: Notes/Report: Positive PT and PTT Reviewed date:06/21/2024 11:49:05 AM Interpretation: Performing Lab:[facility] [id number], Phone - [phone], Director - Susanna Notes/Report: INR 1.4 0.9-1.2 H Reference interval is for non-anticoagulated patients. . Suggested INR therapeutic range for Vitamin K antagonist therapy: Standard Dose (moderate intensity therapeutic range): 2.0 - 3.0 Higher intensity therapeutic range 2.5 - 3.5 Prothrombin Time 15.9 9.1-12.0 sec H aPTT 31 24-33 sec This test has not been validated for monitoring unfractionated heparin therapy. aPTT-based therapeutic ranges for unfractionated heparin therapy have not been established. For general guidelines on Heparin monitoring, refer to the [facility] of Services. PT/INR Reviewed date:04/29/2024 04:25:24 PM Interpretation: Performing Lab: Notes/Report: INR 3.2 PT/INR Reviewed date:12/23/2023 10:25:16 AM Interpretation: Performing Lab: Notes/Report: INR 2.0 Reason For Referral No Information Medications Medication SIG (Take, Route, Frequency, Duration) Notes Start Date End Date Status Warfarin Sodium 4 MG Tablet 1 tablet Ora [facility] Thursday, Thursday, Thursday Active Warfarin Sodium 3 MG Tablet 1 tablet Ora [facility] Thursday, , Thursday, Thursday Active glipiZIDE 2.5 MG Tablet 1 tablet 30 monika edvin before breakfast Orally Once a day; Duration: 90 days Active Finasteride 5 MG Tablet 1 tablet Orally Once a day; Duration: 90 days Active Losartan Potassium 100 MG Tablet 1 tablet Orally Once a day Active Warfarin Sodium 4 MG Tablet 1 tablet Ora [facility] Thursday, Thursday, Thursday; Duration: 30 days 05/11/2024 Active FLUoxetine HCl 20 MG Capsule 1 tablet Orally Once a day Active Tamsulosin HCl 0.4 MG Capsule 1 capsule Orally Once a day Active Folic Acid 1 MG Tablet 1 tablet Orally O nce a day Active Atorvastatin Calcium 20 MG Tablet 1 tablet Orally Once a day; Duration: 100 days Active Iron (Ferrous Sulfate) 325 (65 Fe) MG Tablet 1 tablet Orally Three times a Week Active Social History Tobacco Use: Social History Observation Description Date Details (start date - stop date) Never Smoker NA - NA Social History Miscellaneous: Social Info Question Answer Notes Exercise Activity: Current Activity: walk How Often: 1-2 times a week Social/Lifestyle History Is there someone that lives i n your residence? Yes Type of Residence: Mobile Home Durable Medical Equipment No Nutritional History Weight Changes in the past 6 month s? No Activities of Daily Living: Do you require assistance to bathe or groom? No Do you require assistance for your toilet needs? No Do you require asisstance to eat? No Do you have hearing loss? Yes Do you wear hearing aids? Yes Last Hearing Exam Date: Drugs/Alcohol: Social Info Question Answer Notes Drugs Have you used drugs other than those for medical reasons in the past 12 months? No Benzodiazepines No Alcohol Screen Did you have a drink containing alcohol in the past year? No Points 0 Interpretation Negative Household: Social Info Question Answer Notes Household Marital status: Tobacco Use: Social Info Question Answer Notes Tobacco Use/Smoking Smoking status nonsmoker Tobacco use other than smoking: Are you an other tobac co user? 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 See Dr. Wesley's old records. Previously on Keppra, but this was eventually tapered down due to possibly contributing to patient's anxiety. Will monitor. Problem Anemia (240578653) Anemia (D64.9) Active confirmed Problem Body mass index 30+ - obesity (809470137) BMI 30.0-30.9,adult (Z68.30) Active confirmed Problem Onychomycosis (828882323) Onychomycosis (B35.1) Active confirmed Stable. See foot exam 04/18/2021. Will monitor. Problem History of pulmonary embolus (837345721) History of pulmonary embolism (Z86.711) Active confirmed stable on warfarin, s/p Sara IVC filter 2008. 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 Problem Antiphospholipid syndrome (31932782) Antiphospholipid syndrome (D68.61) Active confirmed Stable. Se e notes from Dr. Wesley former primary care doctor. Patient had two pulmonary embolisms in the past, and was evaluated by sprinkler worker [place] of state. Will request records. Problem Lupus anticoagulant disorder (48049222) Lupus anticoagulant syndrome (D68.62) Active confirmed Stable. Se e notes from Dr. Wesley former primary care doctor. Patient had two pulmonary embolisms in the past, and was evaluated by sprinkler worker out of state. Will request records. Problem Diabetic renal disease (171436586) Type 2 diabetes mellitus with diabetic chronic kidney disease (E11.22) Active confirmed Stable. [place] [employer] (ADA) diet discussed with patient. Patient is to continue to avoid concentrated sweets and sugars and to eat more complex carbohydrates . Will follow up on Hgb A1C. Problem Overweight (410758191) Overweight (E66.3) Active confirmed Problem Chronic kidney disease due to hypertension (114915201773947) Hypertensive chronic kidney disease with stage 1 through stage 4 chronic kidney disease, or unspecified chronic kidney disease (I12.9) Active confirmed Stable. Discussed the importance of lowering the blood pressure to reduce the risk of stroke, cardiovascula r, and all cause mortality through means such as: diet, exercise, low salt diet, and no smoking. Aim for target less than 130/85. Will monitor Problem Hypercoagulable state (34056408) Secondary hypercoagulable state (D68.69) Active confirmed on Warfarin, with multiple pulmonary embolisms. 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 Problem Recurrent major depression in full remission (29397933) Major depression, recurrent, full remission (F33.42) Active confirmed Stable. See notes from Dr. Wesley former primary care doctor. Patient has a long standing history of anxiety and depression. Patient has been on Fluoxetine, Lexapro, Trintellix, Prozac, Clonazepam, Buspirone, Xanax, Viibryd. [place] like a zombie on high doses of Fluoxetine, now stable at current dose. Also having sleep disturbances, high stress. Patient reports he would feel overwhelmed, cry easily, and become sad, extensively noted in old chart. Will monitor for depression. Continue current regimen. Problem Generalized anxiety disorder (93797377) MICK (generalized anxiety disorder) (F41.1) Active confirmed Stable. See notes from Dr. Wesley former primary care doctor. Patient has a long standing history of anxiety and depression. Patient has been on Fluoxetine, Lexapro, Trintellix, Prozac, Clonazepam, Buspirone, Xanax, Viibryd. [place] like a zombie on high doses of Fluoxetine, now stable at current dose. Also having sleep disturbances, high stress. Patient reports he would feel overwhelmed, cry easily, and become sad. 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 He is often forgetful, and gets frustrated which puts stress on his . The patient would become very anxious before going to work especially. Keppra used to seem to contribute to his anxiety as well. Will monitor for anxiety. Continue current regimen. Problem Hyperglycemia due to type 2 diabetes mellitus (453177488510165) Type 2 diabetes mellitus with hyperglycemia, without long-term current use of insulin (E11.65) Active confirmed Stable. (03/2021): Patient's fasting glucose is 148 today. The patient insists he was fasting for his lab work, and denies smoking, poor sleep, or anxiety prior to his lab draw. In patient's old records, his glucose levels have been 237 on 11/2020, 127 10/22/2017, and 151 12/08/2016. An A1c was not found in patient's old records upon review. [place] [employer] (ADA) diet discussed with patient. Patient is to continue to avoid concentrated sweets and sugars and to eat more complex carbohydrates . Will follow up on Hgb A1C. Problem Hyperlipidemia (01047537) Hyperlipemia, idiopathic familial (E78.5) Active confirmed refer to [facility] 11/2020 Problem Type 2 diabetes mellitus with other specified complication, without long-term current use of insulin (E11.69) Active confirmed Stable. Wit h hyperlipidemi a. [place] [employer] (ADA) diet discussed with patient. Patient is to continue to avoid concentrated sweets and sugars and to eat more complex carbohydrates . Will follow up on Hgb A1C. Problem Benign prostatic hypertrophy without outflow obstruction (181615965) Benign prostatic hyperplasia, unspecified whether lower urinary tract symptoms present (N40.0) Active confirmed stable Problem Lower urinary tract symptoms due to benign prostatic hypertrophy (97269368511325) Benign prostatic hyperplasia with lower urinary tract symptoms, symptom details unspecified (N40.1) Active confirmed Problem Social anxiety disorder (22052894) Social anxiety disorder (F40.10) Active confirmed Stable. Se rosales notes from Dr. Wesley former primary care doctor. Patient has a long standing history of anxiety and depression. Patient has been on Fluoxetine, Lexapro, Trintellix, Prozac, Clonazepam, Buspirone, Xanax, Viibryd. [place] like a zombie on high doses of Fluoxetine, now stable at current dose. Also having sleep disturbances, high stress. Patient reports he would feel overwhelmed, cry easily, and become sad. 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 He is often forgetful, and gets frustrated which puts stress on his . The patient would become very anxious before going to work especially. Keppra used to seem to contribute to his anxiety as well. Will monitor for anxiety. Continue current regimen. Problem Type 2 diabetes mellitus with other skin complication, without long-term current use of insulin (E11.628) Active confirmed Stable. Wi th onychiomyosis . [place] [employer] (ADA) diet discussed with patient. Patient is to continue to avoid concentrated sweets and sugars and to eat more complex carbohydrates . Will follow up on Hgb A1C. Problem Primary hypertension (31952827) Primary hypertension (I10) Active confirmed Blood Pressure stable. Discussed the importance of lowering the blood pressure to reduce the risk of stroke, cardiovascula r, and all cause mortality through means such as: diet, exercise at least 3 times per week for an average of 40 minutes per session at moderate to vigorous intensity, DASH diet which is an eating plan that emphasizes vegetables fruits whole grains including low-fat dairy, poultry, fish, legumes, nuts and nontropical vegetables oils and limit sweet sugar sweetened beverages and red meat intake; and no smoking. Aim for target less than 130/85mmHg. Will monitor Problem History of cerebral hemorrhage (329028983) History of cerebral hemorrhage (Z86.79) Active confirmed due to warfarin in 2008 Problem Chronic kidney disease stage 3B (disorder) (631214920) Stage 3b chronic kidney disease (CKD) (N18.32) Active confirmed Stable. Discussed with patient the importance of maintaining a low salt diet , blood pressure control and proper hydration, will monitor for protein in urine, will follow Problem Tic disorder (160058) Tic disorder (F95.9) Active confirmed Stable. See Dr. Wesley's old records. Will monitor. Problem Mild recurrent major depression (80814450) Mild episode of recurrent major depressive disorder (F33.0) Inactive confirmed Stable. See notes from Dr. Wesley former primary care doctor. Patient has a long standing history of anxiety and depression. Patient has been on Fluoxetine, Lexapro, Trintellix, Prozac, Clonazepam, Buspirone, Xanax, Viibryd. [place] like a zombie on high doses of Fluoxetine, now stable at current dose. Also having sleep disturbances, high stress. Patient reports he would feel overwhelmed, cry easily, and become sad, extensively noted in old chart. Will monitor for depression. Continue current regimen. Problem Mild major depression, single episode (85620309) Current mild episode of major depressive disorder without prior episode (F32.0) Inactive confirmed He has been on fluoxetine since 2008 after cerebral hemorrhage, mood has been stable. Vital Signs Heart Rate 57 /min 05/16/2024 Celena Muse 05/16/2024 09:01:50 AM EDT > Patient states that he has not taken his blood pressure medications since he was concerned regarding the Warfarin dosing. He will take his blood pressure medications when he comes home, then he will call our office first thing tomorrow morning to report his blood pressure. Temperature 97.2 degrees Fahrenheit 05/16/2024 Celena Muse 05/16/2024 09:01:50 AM EDT > Patient states that he has not taken his blood pressure medications since he was concerned regarding the Warfarin dosing. He will take his blood pressure medications when he comes home, then he will call our office first thing tomorrow morning to report his blood pressure. Respiratory Rate 16 /min 05/16/2024 Celena Muse 05/16/2024 09:01:50 AM EDT > Patient states that he has not taken his blood pressure medications since he was concerned regarding the Warfarin dosing. He will take his blood pressure medications when he comes home, then he will call our office first thing tomorrow morning to report his blood pressure. Blood pressure diastolic 66 mm Hg 05/16/2024 Celena Muse 05/16/2024 09:01:50 AM EDT > Patient states that he has not taken his blood pressure medications since he was concerned regarding the Warfarin dosing. He will take his blood pressure medications when he comes home, then he will call our office first thing tomorrow morning to report his blood pressure. Height-cm 175.26 cm 05/16/2024 Celena Muse 05/16/2024 09:01:50 AM EDT > Patient states that he has not taken his blood pressure medications since he was concerned regarding the Warfarin dosing. He will take his blood pressure medications when he comes home, then he will call our office first thing tomorrow morning to report his blood pressure. Oximetry 98 % 05/16/2024 Celena Muse 05/16/2024 09:01:50 AM EDT > Patient states that he has not taken his blood pressure medications since he was concerned regarding the Warfarin dosing. He will take his blood pressure medications when he comes home, then he will call our office first thing tomorrow morning to report his blood pressure. Weight-kg 93.44 kg 05/16/2024 Celena Muse 05/16/2024 09:01:50 AM EDT > Patient states that he has not taken his blood pressure medications since he was concerned regarding the Warfarin dosing. He will take his blood pressure medications when he comes home, then he will call our office first thing tomorrow morning to report his blood pressure. Height 69 in 05/16/2024 Celena Muse 05/16/2024 09:01:50 AM EDT > Patient states that he has not taken his blood pressure medications since he was concerned regarding the Warfarin dosing. He will take his blood pressure medications when he comes home, then he will call our office first thing tomorrow morning to report his blood pressure. Blood pressure systolic 185 mm Hg 05/16/2024 Celena Muse 05/16/2024 09:01:50 AM EDT > Patient states that he has not taken his blood pressure medications since he was concerned regarding the Warfarin dosing. He will take his blood pressure medications when he comes home, then he will call our office first thing tomorrow morning to report his blood pressure. Weight 206.0 lbs 05/16/2024 Celena Muse 05/16/2024 09:01:50 AM EDT > Patient states that he has not taken his blood pressure medications since he was concerned regarding the Warfarin dosing. He will take his blood pressure medications when he comes home, then he will call our office first thing tomorrow morning to report his blood pressure. BMI 30.42 kg/m2 05/16/2024 Celena Muse 05/16/2024 09:01:50 AM EDT > Patient states that he has not taken his blood pressure medications since he was concerned regarding the Warfarin dosing. He will take his blood pressure medications when he comes home, then he will call our office first thing tomorrow morning to report his blood pressure. Encounters Encounter Location Date Provider Diagnosis [facility] [address] [address] 12/15/2023 Gonzales Freed [facility] [address] [place] [address] 12/22/2023 Radha Moore [facility] [address] [place] [address] 04/18/2024 Jelexleni Sheridan-Addyetan Lupus anticoagulant syndrome D68.62 and History of pulmonary embolism Z86.711 [facility] [address] [place] [address] 04/28/2024 Quelexleni Stevensonez-Gaetan [facility] [address] [facility] [address] 04/29/2024 Gonzales Ignacia-Souchet Lupus anticoagulant syndrome D68.62 [facility] [address] [place] [address] 05/11/2024 Radha Moore History of pulmonary embolism Z86.711 [facility] [address] [place] [address] 05/18/2024 Quelexleni Sheridan-Gaetan [facility] [address] [facility] [address] 12/23/2023 Yue Lizarraga Type 2 diabetes mellitus with diabetic chronic kidney disease E11.22 ; Hypertensive chronic kidney disease with stage 1 through stage 4 chronic kidney disease, or unspecified chronic kidney disease I12.9 ; Post-nasal drip R09.82 ; Stage 3b chronic kidney disease (CKD) N18.32 ; History of pulmonary embolism Z86.711 ; Type 2 diabetes mellitus with other specified complication, without long-term current use of insulin E11.69 ; Hyperlipemia, idiopathic familial E78.5 ; Secondary hypercoagulable state D68.69 ; Type 2 diabetes mellitus with other skin complication, without long-term current use of insulin E11.628 ; Lupus anticoagulant syndrome D68.62 ; Anemia D64.9 ; 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.01 ; Benign prostatic hyperplasia with lower urinary tract symptoms, symptom details unspecified N40.1 ; Seizure disorder G40.909 ; Major depression, recurrent, full remission F33.42 ; Encounter for screening for depression Z13.31 ; Encounter for screening, unspecified Z13.9 ; Overweight E66.3 ; Body mass index [BMI] 29.0-29.9, adult Z68.29 and Flu vaccine refused Z28.21 [facility] [address] [place] [address] 05/16/2024 Yue Lizarraga Type 2 diabetes mellitus with diabetic chronic kidney disease E11.22 ; Hypertensive chronic kidney disease with stage 1 through stage 4 chronic kidney disease, or unspecified chronic kidney disease I12.9 ; Post-nasal drip R09.82 ; Stage 3b chronic kidney disease (CKD) N18.32 ; History of pulmonary embolism Z86.711 ; Type 2 diabetes mellitus with other specified complication, without long-term current use of insulin E11.69 ; Hyperlipemia, idiopathic familial E78.5 ; Secondary hypercoagulable state D68.69 ; Type 2 diabetes mellitus with other skin complication, without long-term current use of insulin E11.628 ; Lupus anticoagulant syndrome D68.62 ; Anemia D64.9 ; 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.01 ; Benign prostatic hyperplasia with lower urinary tract symptoms, symptom details unspecified N40.1 ; Seizure disorder G40.909 ; Major depression, recurrent, full remission F33.42 ; Encounter for screening for depression Z13.31 ; Encounter for screening, unspecified Z13.9 ; Overweight E66.3 and BMI 30.0-30.9,adult Z68.30 [facility] [address] [place] [address] 04/29/2024 Radha Moore 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.01 [facility] [address] [place] [address] 12/15/2023 Radha Moore COVID-19 U07.1 Assessments Encounter Date Diagnosis (ICD Code) Assessment Notes Treatment Notes Treatment Clinical Notes Section Notes 12/15/2023 COVID-19 (ICD-10 - U07.1) 12/23/2023 Type 2 diabetes mellitus with diabetic chronic kidney disease (ICD-10 - E11.22) Labs 12/10/2023: A1C 7.2 and fasting glucose 131. Diabetes was previously being managed with diet/exercise, but he does not exercise often. Spoke to Dr. Sheridan about this case. Started patient on Glipizide. Recommended for him to check his blood sugar before meals at least twice a day and to contact us if he has any low blood sugar readings. He will be following up with his PCP in [place]. ADA diet discussed with patient. Patient is to continue to avoid concentrated sweets and sugars and to eat more complex carbohydrates. Will follow up on Hgb A1C. Referred to [email or web address] for more information and education 12/23/2023 Hypertensive chronic kidney disease with stage 1 through stage 4 chronic kidney disease, or unspecified chronic kidney disease (ICD-10 - I12.9) Stable. Discussed the importance of lowering the blood pressure to reduce the risk of stroke, cardiovascular, and all cause mortality through means such as: diet, exercise, low salt diet, and no smoking. Aim for target less than 130/85. Will monitor 04/29/2024 intermediate (current) use of anticoagulants (ICD-10 - Z79.01) -Warfarin is an effective medicine to prevent [...] 20 to 30 minutes call our office [phone] for further instruction. -If you get a [...] need to change your dose of Warfarin 04/29/2024 Lupus anticoagulant syndrome (ICD-10 - D68.62) 05/11/2024 History of pulmonary embolism (ICD-10 - Z86.711) stable on warfarin, s/p [place] IVC filter 2008. 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 05/16/2024 Type 2 diabetes mellitus with diabetic chronic kidney disease (ICD-10 - E11.22) Currently awaiting for recent labs to return, will plan to call patient with results. Labs 12/10/2023: A1C 7.2 and fasting glucose 131. Diabetes was previously being managed with diet/exercise, but he does not exercise often. Spoke to Dr. Sheridan about this case. Started patient on Glipizide. Recommended for him to check his blood sugar before meals at least twice a day and to contact us if he has any low blood sugar readings. He will be following up with his PCP in [place]. ADA diet discussed with patient. Patient is to continue to avoid concentrated sweets and sugars and to eat more complex carbohydrates. Will follow up on Hgb A1C. 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 He states he did not take his blood pressure pills because he was concerned regarding his Warfarin dosing. Advised him to take his blood pressure medication and call us first thing tomorrow morning to report his blood pressure. Discussed the importance of lowering the blood pressure to reduce the risk of stroke, cardiovascular, and all cause mortality through means such as: diet, exercise, low salt diet, and no smoking. Aim for target less than 130/85. Will monitor 04/18/2024 Lupus anticoagulant syndrome (ICD-10 - D68.62) 04/18/2024 History of pulmonary embolism (ICD-10 - Z86.711) stable on warfarin, s/p [place] IVC filter 2008. 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 12/23/2023 Post-nasal drip (ICD-10 - R09.82) Patient recently had COVID-19 and now has post nasal drip. Recommended a trial of Zyrtec, Sonali or saline spray. 05/16/2024 Post-nasal drip (ICD-10 - R09.82) 05/16/2024 Stage 3b chronic kidney disease (CKD) (ICD-10 - N18.32) Labs 12/10/2023 showed an eGFR of 44. Currently awaiting for recent labs to return, will plan to call patient with results. ADA diet discussed with patient. Patient is to continue to avoid concentrated sweets and sugars and to eat more complex carbohydrates. Will follow up on Hgb A1C. Referred to [email or web address] for more information and education 12/23/2023 Stage 3b chronic kidney disease (CKD) (ICD-10 - N18.32) Labs 12/10/2023 showed an eGFR of 44. ADA diet discussed with patient. Patient is to continue to avoid concentrated sweets and sugars and to eat more complex carbohydrates. Will follow up on Hgb A1C. Referred to [email or web address] for more information and education 05/16/2024 History of pulmonary embolism (ICD-10 - Z86.711) Stable on warfarin, s/p [place] IVC filter 2008. 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 INR today was 2.5. Continue current warfarin regimen. 12/23/2023 History of pulmonary embolism (ICD-10 - Z86.711) Stable on warfarin, s/p [place] IVC filter 2008. 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 INR today was 2. Continue current warfarin regimen. Stable on warfarin, s/p [place] IVC filter 2008. 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 05/16/2024 Type 2 diabetes mellitus with other specified complication, without long-term current use of insulin (ICD-10 - E11.69) Currently awaiting for recent labs to return, will plan to call patient with results. With hyperlipidemia now on statin. Glipizide was started at his last office visit. Recommended daily exercise and ADA diet. Will monitor A1C. 12/23/2023 Type 2 diabetes mellitus with other specified complication, without long-term current use of insulin (ICD-10 - E11.69) Worsening. With hyperlipidemia now on statin. Will start patient on Glipizide given recently increased A1C of 7.2. Recommended daily exercise and ADA diet. Will monitor A1C. 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 Low cholesterol diet discussed with patient to avoid fast foods and simple carbohydrates. Keep cholesterol intake to less than 200mg. Exercise, high fiber diet, and weight loss education discussed with the patient. 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 Low cholesterol diet discussed with patient to avoid fast foods and simple carbohydrates. Keep cholesterol intake to less than 200mg. Exercise, high fiber diet, and weight loss education discussed with the patient. 05/16/2024 Secondary hypercoagulable state (ICD-10 - D68.69) On Warfarin, with multiple pulmonary embolisms. 12/23/2023 Secondary hypercoagulable state (ICD-10 - D68.69) On Warfarin, with multiple pulmonary embolisms. 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 12/23/2023 Type 2 diabetes mellitus with other skin complication, without long-term current use of insulin (ICD-10 - E11.628) DM type 2 with tinea pedis, topical antifungal given. Recommended moisturizing the skin with Aquaphor. 05/16/2024 Type 2 diabetes mellitus with other skin complication, without long-term current use of insulin (ICD-10 - E11.628) Stable. DM type 2 with tinea pedis. Recommended moisturizing the skin with Aquaphor. 05/16/2024 Lupus anticoagulant syndrome (ICD-10 - D68.62) Stable. See notes from Dr. Wesley former primary care doctor. Patient had two pulmonary embolisms in the past, and was evaluated by sprinkler worker [place]. Will request records. 12/23/2023 Lupus anticoagulant syndrome (ICD-10 - D68.62) Stable. See notes from Dr. Wesley former primary care doctor. Patient had two pulmonary embolisms in the past, and was evaluated by sprinkler worker out of state. Will request records. 12/23/2023 Anemia (ICD-10 - D64.9) Improving, patient had colonoscopy 12/2022 [facility] and no GI bleeding found as per . Patient evaluated also by Hematology [facility], recommmedations to start iron given, Hbg going up. May take oral iron every other day. 05/16/2024 Anemia (ICD-10 - D64.9) Improving, patient had colonoscopy 12/2022 [facility] and no GI bleeding found as per . [place], recommmedations to start iron given, Hbg going up. May take oral iron every other day. 05/16/2024 intermediate school teacher (current) use of anticoagulants (ICD-10 - Z79.01) [...] you are not sure, ask our providers. Tylenol(acetamino phen)is ok to take Alcohol can make you [...] 20 to 30 minutes call our office [phone] for further instruction. -If you get a [...] need to change your dose of Warfarin 12/23/2023 intermediate (current) use of anticoagulants (ICD-10 - Z79.01) [...] you are not sure, ask our providers. Tylenol(acetamino phen)is ok to take Alcohol can make you [...] 20 to 30 minutes call our office [phone] for further instruction. -If you get a [...] need to change your dose of Warfarin 05/16/2024 Benign prostatic hyperplasia with lower urinary tract symptoms, symptom details unspecified (ICD-10 - N40.1) Stable. Patient on Tamsulosin and Finasteride. 12/23/2023 Benign prostatic hyperplasia with lower urinary tract symptoms, symptom details unspecified (ICD-10 - N40.1) Stable. Patient on Tamsulosin and Finasteride. Refilled Finasteride today. Will follow. 05/16/2024 Seizure disorder (ICD-10 - G40.909) Stable. See Dr. Wesley's old records. Previously on Keppra, but this was eventually tapered down due to possibly contributing to patient's anxiety. Will monitor. 12/23/2023 Seizure disorder (ICD-10 - G40.909) Stable. See Dr. Wesley's old records. Previously on Keppra, but this was eventually tapered down due to possibly contributing to patient's anxiety. Will monitor. 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 See notes from Dr. Wesley former primary care doctor. Patient has a long standing history of anxiety and depression. Patient has been on Fluoxetine, Lexapro, Trintellix, Prozac, Clonazepam, Buspirone, Xanax, Viibryd. [place] like a zombie on high doses of Fluoxetine, now stable at current dose. Also having sleep disturbances, high stress. Patient reports he would feel overwhelmed, cry easily, and become sad, extensively noted in old chart. Will monitor for depression. Continue current regimen. 05/16/2024 Major depression, recurrent, full remission (ICD-10 - F33.42) Stable. See notes from Dr. Wesley former primary care doctor. Patient has a long standing history of anxiety and depression. Patient has been on Fluoxetine, Lexapro, Trintellix, Prozac, Clonazepam, Buspirone, Xanax, Viibryd. [place] like a zombie on high doses of Fluoxetine, now stable at current dose. Also having sleep disturbances, high stress. Patient reports he would feel overwhelmed, cry easily, and become sad, extensively noted in old chart. Will monitor for depression. Continue current regimen. 05/16/2024 Encounter for screening for depression (ICD-10 - Z13.31) 12/23/2023 Encounter for screening for depression (ICD-10 - Z13.31) 12/23/2023 Encounter for screening, unspecified (ICD-10 - Z13.9) 05/16/2024 Encounter for screening, unspecified (ICD-10 - Z13.9) Patient refuses PCV and Shingles vaccine today. 05/16/2024 Overweight (ICD-10 - E66.3) 12/23/2023 Overweight (ICD-10 - E66.3) 12/23/2023 Body mass index [BMI] 29.0-29.9, adult (ICD-10 - Z68.29) 05/16/2024 BMI 30.0-30.9,adult (ICD-10 - Z68.30) BMI greater than 29. Obesity is caused by an imbalance between food intake & energy expenditure. Studies suggest that a net reduction of 500-1000-Cirilo can cause weight loss. Recommendations to increase physical activity on a weekly basis to include 30 minute sessions of moderate intensity exercise such as hiking, walking, bicycling. 12/23/2023 Flu vaccine refused (ICD-10 - Z28.21) Plan Of Treatment Pending Test Test Name Order Date Hemoglobin A1c 04/19/2021 PT/INR 12/18/2020 PT/INR 04/15/2021 LIPID PANEL 05/30/2021 COMPREHENSIVE METABOLIC PANEL 05/30/2021 CBC (INCLUDES DIFF/PLT) WITH SMEAR REVIE W 12/17/2022 Future Test Test Name Order Date LIPID PANEL 12/12/2024 TSH+FREE T4 12/12/2024 PROTHROMBIN W/INR + PARTIAL THROMBOPLAST IN TIMES 12/12/2024 COMPREHENSIVE METABOLIC PANEL 12/12/2024 PROTHROMBIN TIME-INR 12/12/2024 MICROALBUMIN, RANDOM URINE (W/O CREATINI NE) 12/12/2024 HEMOGLOBIN A1c 12/12/2024 CBC (INCLUDES DIFFERENTIAL AND PLATELETS ) 12/12/2024 Next Appt Details Provider Name:Radha Radha Addydmitry, 12/22/2024 09:00:00 AM, [address] [place], [address], Insurance Providers Payer Name Payer Address Payer Phone Subscriber Number Group Number Insured Name Patient Relationship to Insured Coverage Start Date Coverage End Date [employer] [address] [address] [place] [address] [id number] Murtaza Muller Self - patient is the insured 1 Medicare [address] [address] [place] [address] [id number] Murtaza Muller Self - patient is the insured 1 Medical (General) History Medical History History ICD Code depression high blood pressure measles chicken pox bleeding disorder diabetes vascular disease Surgical History Surgery Date(Month/Year) gallbladder 2021 Colonoscopy - in [place], [place] --- @[facility] 12/2022 Hospitalization History Reason Date(Month/Year) cerebral hemorrahage 2008 pulmonary embolism leg infection
[2024-09-28 11:34] LABS: INR 2.22 (0.9-1.1); Prothrombin Time 23.2 seconds (10.1-12.5)
== END 2024-09-28 23:59 | disposition home or self-care (01) ==
LOC: LAB 10:15
PROVIDERS: PCP Internal Medicine Adolescent Medicine; Visit Provider Internal Medicine Adolescent Medicine
DX: Z79.01 Long term (current) use of anticoagulants (principal)
CPT/HCPCS: 36415; 85610

== ENCOUNTER 2024-11-01 11:35 | Outpatient (CLI) | payer MEDICARE, SELFPAY ==
--- OUTSIDE RECORDS SUMMARY | 2024-11-01 11:38 | XMS_ITS | Patient Health Record ---
Author Organization [facility] Address [address] [place] [id number] Care Team Providers Care Needle Loom Setter Name Role Phone Gonzales Freed Primary Care Provider [phone] Sheridan-Que Andreslexza Unavailable Lizarraga, Yue Unavailable [phone] Allergies No Known Allergies Results Component Value Reference Range Flag Notes PT/INR Reviewed date:04/29/2024 04:25:24 PM Interpretation: Performing Lab: Notes/Report: INR 3.2 PT and PTT Reviewed date:06/21/2024 11:49:05 AM Interpretation: [facility], [address] [place] [id number], Phone - [phone], Director - Susanna Notes/Report: INR 1.4 0.9-1.2 [...] guidelines on Heparin monitoring, refer to the [facility] Directory of Services. Covid 19 (Rapid) Reviewed date:12/15/2023 10:28:09 AM Interpretation:Positive Performing Lab: Notes/Report: Positive Prothrombin Time (PT) Reviewed date:05/02/2024 08:53:08 AM Interpretation: Performing Lab:[facility] [id number], Phone - [phone], Director - Susanna Notes/Report: INR 2.6 0.9-1.2 H Reference interval is for non-anticoagulated patients. . Suggested INR therapeutic range for Vitamin K antagonist therapy: Standard Dose (moderate intensity therapeutic range): 2.0 - 3.0 Higher intensity therapeutic range 2.5 - 3.5 Prothrombin Time 27.8 9.1-12.0 sec H PT/INR Reviewed date:12/23/2023 10:25:16 AM Interpretation: Performing Lab: Notes/Report: INR 2.0 [facility] CKD Program Reviewed date:12/11/2023 03:09:44 PM Interpretation: Performing Lab:[facility] [address] [id number], Phone - [phone], Director - Susanna Notes/Report: Interpretation Note Supplement al report is available. PDF . CBC With Differential/Platel et* Reviewed date:12/11/2023 03:09:45 PM Interpretation: Performing Lab:[facility] [address] [id number], Phone - [phone], Director - Susanna Notes/Report: WBC 6.9 3.4-10.8 [...] % Immature Grans (Abs) 0.0 0.0-0.1 x10E3/uL Hemoglobin A1c* Reviewed date:12/11/2023 03:09:45 PM Interpretation: Performing Lab:[address] [id number], Phone - [phone], Director - MDFarrier Notes/Report: Hemoglobin A1c 7.2 4.8-5.6 % H . Prediabetes: 5.7 - 6.4 Diabetes: >6.4 Glycemic control for adults with diabetes: <7.0 Thyroid Panel With TSH Reviewed date:12/11/2023 03:09:45 PM Interpretation: Performing Lab:[address] [id number], Phone - [phone], Director - MDFarrier Notes/Report: TSH 2.310 0.450-4.500 uIU/mL Thyroxine (T4) 7.7 4.5-12.0 ug/dL T3 Uptake 23 24-39 % L Free Thyroxine Index 1.8 1.2-4.9 Microalb/Creat Ratio, Randm Ur* Reviewed date:12/11/2023 03:09:45 PM Interpretation: Performing Lab:[address] [id number], Phone - [phone], Director - MDFarrier Notes/Report: Creatinine, Urine 141.9 Not Estab. mg/dL Albumin, Urine 186.2 Not Estab. ug/mL Alb/Creat Ratio 131 0-29 mg/g creat H Normal: 0 - 29 Moderately increased: 30 - 300 Severely increased: >300 Lipid Panel With LDL/HDL Rat io* Reviewed date:12/11/2023 03:09:45 PM Interpretation: Performing Lab:[address] [id number], Phone - [phone], Director - MDFarrier Notes/Report: Cholesterol, Total 137 100-199 mg/dL Triglycerides 83 0-149 mg/dL HDL Cholesterol 56 >39 mg/dL VLDL Cholesterol [place] 16 5-40 mg/dL LDL Chol Calc ([facility]) 65 0-99 mg/dL LDL/HDL Ratio 1.2 0.0-3.6 ratio LDL/HDL Ratio Men Women 1/2 Avg.Risk 1.0 1.5 Avg.Risk 3.6 3.2 2X Avg.Risk 6.2 5.0 3X Avg.Risk 8.0 6.1 Cardiovascular Risk Assessme nt Reviewed date:12/11/2023 03:09:45 PM Interpretation: Performing Lab:[address] [id number], Phone - [phone], Director - Susanna Notes/Report: Interpretation Note Supplement al report is available. PDF Not applicable PDF Report Reviewed date:12/11/2023 03:09:45 PM Interpretation: Performing Lab:[address] [id number], Phone - [phone], Director - Susanna Notes/Report: PDF Report1 LCLS Comp. Metabolic Panel (14) Reviewed date:12/11/2023 03:09:45 PM Interpretation: Performing Lab:[address] [id number], Phone - [phone], Director - Susanna Notes/Report: Glucose 131 70-99 [...] 0-40 IU/L ALT (SGPT) 10 0-44 IU/L Reason For Referral No Information Medications Medication SIG (Take, Route, Frequency, Duration) Notes Start Date End Date Status Warfarin Sodium 4 MG Tablet 1 tablet [facility] Thursday, Thursday, Thursday Active Warfarin Sodium 3 MG Tablet 1 tablet [facility] Thursday, , Thursday, Thursday Active glipiZIDE 2.5 MG Tablet 1 tablet 30 monika edvin before breakfast Orally Once a day; Duration: 90 days Active Finasteride 5 MG Tablet 1 tablet Orally Once a day; Duration: 90 days Active Losartan Potassium 100 MG Tablet 1 tablet Orally Once a day Active Warfarin Sodium 4 MG Tablet 1 [facility] Thursday, Thursday, Thursday; Duration: 30 [...] Notes Problem Long-term current use of anticoagulant (868862843) USP (current) use of anticoagulants (Z79.01) Active confirmed Problem Seizure disorder (701309311) Seizure disorder (G40.909) Active confirmed Stable. See Dr. Wesley's old records. Previously on Keppra, but this was eventually tapered down due to possibly contributing to patient's anxiety. Will monitor. Problem Anemia (038553128) Anemia (D64.9) Active confirmed Problem Body mass index 30+ - obesity (716334193) BMI 30.0-30.9,adult (Z68.30) Active confirmed Problem Onychomycosis (370455890) Onychomycosis (B35.1) Active confirmed Stable. See foot exam 04/18/2021. Will monitor. Problem History of pulmonary embolus (037399856) History of pulmonary embolism (Z86.711) Active confirmed stable on warfarin, s/p Sara IVC filter 2008. 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 Problem Antiphospholipid syndrome (82400743) Antiphospholipid syndrome (D68.61) Active confirmed Stable. Se e notes from Dr. Wesley former primary care doctor. Patient had two pulmonary embolisms in the past, and was evaluated [place] web programmer [place]. Will request records. Problem Lupus anticoagulant disorder (29058299) Lupus anticoagulant syndrome (D68.62) Active confirmed Stable. Se e notes from Dr. Wesley former primary care doctor. Patient had two pulmonary embolisms in the past, and was evaluated by web programmer [place] of state. Will request records. Problem Diabetic renal disease (818580541) Type 2 diabetes mellitus with diabetic chronic kidney disease (E11.22) Active confirmed Stable. [place] [employer] (ADA) diet discussed with patient. Patient is to continue to avoid concentrated sweets and sugars and to eat more complex carbohydrates . Will follow up on Hgb A1C. Problem Overweight (875104857) Overweight (E66.3) Active confirmed Problem Chronic kidney disease due to hypertension (377614615976412) Hypertensive chronic kidney disease with stage 1 [...] than 130/85. Will monitor Problem Hypercoagulable state (19817058) Secondary hypercoagulable state (D68.69) Active confirmed on Warfarin, with multiple pulmonary embolisms. Will request records from prior web programmer. Problem Recurrent major depression in full remission (26472898) Major depression, recurrent, full remission (F33.42) Active confirmed Stable. See notes from Dr. Wesley former primary care doctor. Patient has a long standing history of anxiety and depression. Patient has been on Fluoxetine, Lexapro, Trintellix, Prozac, Clonazepam, Buspirone, Xanax, Viibryd. [place] like a zombie on high doses of Fluoxetine, now stable at current dose. Also having sleep disturbances, high stress. Patient reports he would feel overwhelmed, cry easily, and become sad, extensively noted in old chart. Will monitor for depression. Continue current regimen. Problem Generalized anxiety disorder (16478279) MICK (generalized anxiety disorder) (F41.1) Active confirmed Stable. See notes from Dr. Wesley former primary care doctor. Patient has a long standing history of anxiety and depression. Patient has been on Fluoxetine, Lexapro, Trintellix, Prozac, Clonazepam, Buspirone, Xanax, Viibryd. [place] like a zombie on high doses of [...] Hyperglycemia due to type 2 diabetes mellitus (646333907548446) Type 2 diabetes mellitus with hyperglycemia, without [...] found in patient's old records upon review. [place] [employer] (ADA) diet discussed with patient. Patient is to continue to avoid concentrated sweets and sugars and to eat more complex carbohydrates . Will follow up on Hgb A1C. Problem Hyperlipidemia (69650515) Hyperlipemia, idiopathic familial (E78.5) Active confirmed refer to [facility] 11/2020 Problem Mild recurrent major depression (05602386) Mild episode of recurrent major depressive disorder (F33.0) Inactive confirmed Stable. See notes from Dr. Wesley former primary care doctor. Patient has a long standing history of anxiety and depression. Patient has been on Fluoxetine, Lexapro, Trintellix, Prozac, Clonazepam, Buspirone, Xanax, Viibryd. [place] like a zombie on high doses of Fluoxetine, now stable at current dose. Also having sleep disturbances, high stress. Patient reports he would feel overwhelmed, cry easily, and become sad, extensively noted in old chart. Will monitor for depression. Continue current regimen. Problem Type 2 diabetes mellitus with other specified complication, without long-term current use of insulin (E11.69) Active confirmed Stable. Wit h hyperlipidemi a. [place] [employer] (ADA) diet discussed with patient. Patient is to continue to avoid concentrated sweets and sugars and to eat more complex carbohydrates . Will follow up on Hgb A1C. Problem Benign prostatic hypertrophy without outflow obstruction (727677968) Benign prostatic hyperplasia, unspecified whether lower urinary tract symptoms present (N40.0) Active confirmed stable Problem Mild major depression, single episode (06848806) Current mild episode of major depressive disorder without prior episode (F32.0) Inactive confirmed He has been on fluoxetine since 2008 after cerebral hemorrhage, mood has been stable. Problem Lower urinary tract symptoms due to benign prostatic hypertrophy (22537319597021) Benign prostatic hyperplasia with lower urinary tract symptoms, symptom details unspecified (N40.1) Active confirmed Problem Social anxiety disorder (37195010) Social anxiety disorder (F40.10) Active confirmed Stable. Se bobby notes from Dr. Wesley former primary care doctor. Patient has a long standing history of anxiety and depression. Patient has been on Fluoxetine, Lexapro, Trintellix, Prozac, Clonazepam, Buspirone, Xanax, Viibryd. [place] like a zombie on high doses of [...] Active confirmed Stable. Wi th onychiomyosis . [place] [employer] (ADA) diet discussed with patient. Patient is to continue to avoid concentrated sweets and sugars and to eat more complex carbohydrates . Will follow up on Hgb A1C. Problem Primary hypertension (15902306) Primary hypertension (I10) Active confirmed Blood Pressure [...] Will monitor Problem History of cerebral hemorrhage (007838877) History of cerebral hemorrhage (Z86.79) Active confirmed due to warfarin in 2008 Problem Chronic kidney disease stage 3B (disorder) (558424642) Stage 3b chronic kidney disease (CKD) (N18.32) Active confirmed Stable. Discussed with patient the importance of maintaining a low salt diet , blood pressure control and proper hydration, will monitor for protein in urine, will follow Problem Tic disorder (212784) Tic disorder (F95.9) Active confirmed Stable. See Dr. Wesley's old records. Will monitor. Vital Signs Heart Rate 57 /min 05/16/2024 [...] pressure. Encounters Encounter Location Date Provider Diagnosis [facility] [address] [place] [address] 12/15/2023 Radha Moore COVID-19 U07.1 [facility] [address] [place] [address] 12/23/2023 Yue Lizarraga Type 2 diabetes mellitus [...] anticoagulant syndrome D68.62 ; Anemia D64.9 ; USP (current) use of anticoagulants Z79.01 ; Benign prostatic hyperplasia with lower urinary tract symptoms, symptom details unspecified N40.1 ; Seizure disorder G40.909 ; Major depression, recurrent, full remission F33.42 ; Encounter for screening for depression Z13.31 ; Encounter for screening, unspecified Z13.9 ; Overweight E66.3 ; Body mass index [BMI] 29.0-29.9, adult Z68.29 and Flu vaccine refused Z28.21 [facility] [address] [place] [address] 04/29/2024 Radha Moore USP (current) use of anticoagulants Z79.01 [facility] [address] [place] [address] 05/16/2024 Yue Lizarraga Type 2 diabetes mellitus [...] syndrome D68.62 ; Anemia D64.9 ; intermediate teacher (current) use of anticoagulants Z79.01 ; Benign prostatic hyperplasia with lower urinary tract symptoms, symptom details unspecified N40.1 ; Seizure disorder G40.909 ; Major depression, recurrent, full remission F33.42 ; Encounter for screening for depression Z13.31 ; Encounter for screening, unspecified Z13.9 ; Overweight E66.3 and BMI 30.0-30.9,adult Z68.30 [facility] [address] [place] [address] 12/15/2023 Gonzales Ignacia-Medardo [facility] [address] [place] [address] 12/22/2023 Radha Moore [facility] [address] [place] [address] 04/18/2024 Radha Moore Lupus anticoagulant syndrome D68.62 and History of pulmonary embolism Z86.711 [facility] [address] [place] [address] 04/28/2024 Radha Moore [facility] [address] [place] [address] 04/29/2024 [facility] Lupus anticoagulant syndrome D68.62 [facility] [address] [place] [address] 05/11/2024 Radha Moore History of pulmonary embolism Z86.711 [facility] [address] [place] [address] 05/18/2024 Radha Moore Assessments Encounter Date Diagnosis (ICD Code) Assessment Notes Treatment Notes Treatment Clinical Notes Section Notes 12/15/2023 COVID-19 (ICD-10 - U07.1) 04/18/2024 Lupus anticoagulant syndrome (ICD-10 - D68.62) 05/16/2024 Type 2 diabetes mellitus with diabetic [...] be following up with his PCP in [place]. ADA diet discussed with patient. Patient is [...] for target less than 130/85. Will monitor 05/11/2024 History of pulmonary embolism (ICD-10 - Z86.711) stable on warfarin, s/p Sara IVC filter 2008. 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 04/29/2024 Lupus anticoagulant syndrome (ICD-10 - D68.62) 04/29/2024 USP (current) use of anticoagulants (ICD-10 - Z79.01) [...] 20 to 30 minutes call our office [phone] for further instruction. -If you get a [...] to change your dose of Warfarin 12/23/2023 Type 2 diabetes mellitus with diabetic [...] be following up with his PCP in [place]. ADA diet discussed with patient. Patient is [...] for target less than 130/85. Will monitor 12/23/2023 Post-nasal drip (ICD-10 - R09.82) Patient recently had COVID-19 and now has post nasal drip. Recommended a trial of Zyrtec, Sonali or saline spray. 05/16/2024 Post-nasal drip (ICD-10 - R09.82) 04/18/2024 History of pulmonary embolism (ICD-10 - Z86.711) stable on warfarin, s/p Sara IVC filter 2008. 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 05/16/2024 Stage 3b chronic kidney disease (CKD) [...] www.diabetes.org for more information and education 12/23/2023 History of pulmonary embolism (ICD-10 - Z86.711) Stable on warfarin, s/p Sara IVC filter 2008. 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 INR today was 2. Continue current warfarin regimen. Stable on warfarin, s/p Bern IVC filter 2008. 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 05/16/2024 History of pulmonary embolism (ICD-10 - Z86.711) Stable on warfarin, s/p Sara IVC filter 2008. 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 INR today was 2.5. Continue current warfarin regimen. 05/16/2024 Type 2 diabetes mellitus with other [...] pulmonary embolisms. Will request records from prior web programmer. 12/23/2023 Type 2 diabetes mellitus with other [...] in the past, and was evaluated by web programmer [place] of state. Will request records. 12/23/2023 Lupus anticoagulant syndrome (ICD-10 - D68.62) Stable. See notes from Dr. Wesley former primary care doctor. Patient had two pulmonary embolisms in the past, and was evaluated by web programmer out of state. Will request records. 12/23/2023 Anemia (ICD-10 - D64.9) Improving, patient had colonoscopy 12/2022 [facility] and no GI bleeding found as per . Patient evaluated also by Hematology [facility], recommmedations to start iron given, Hbg going up. May take oral iron every other day. 05/16/2024 Anemia (ICD-10 - D64.9) Improving, patient had colonoscopy 12/2022 [facility] and no GI bleeding found as per . [place], recommmedations to start iron given, Hbg going up. May take oral iron every other day. 05/16/2024 intermediate teacher (current) use of anticoagulants (ICD-10 - [...] 20 to 30 minutes call our office [phone] for further instruction. -If you get a [...] to change your dose of Warfarin 12/23/2023 USP (current) use of anticoagulants (ICD-10 - Z79.01) [...] 20 to 30 minutes call our office [phone] for further instruction. -If you get a [...] possibly contributing to patient's anxiety. Will monitor. 05/16/2024 Major depression, recurrent, full remission (ICD-10 - F33.42) Stable. See notes from Dr. Wesley former primary care doctor. Patient has a long standing history of anxiety and depression. Patient has been on Fluoxetine, Lexapro, Trintellix, Prozac, Clonazepam, Buspirone, Xanax, Viibryd. [place] like a zombie on high doses of Fluoxetine, now stable at current dose. Also having sleep disturbances, high stress. Patient reports he would feel overwhelmed, cry easily, and become sad, extensively noted in old chart. Will monitor for depression. Continue current regimen. 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 See notes from Dr. Wesley former primary care doctor. Patient has a long standing history of anxiety and depression. Patient has been on Fluoxetine, Lexapro, Trintellix, Prozac, Clonazepam, Buspirone, Xanax, Viibryd. [place] like a zombie on high doses of Fluoxetine, now stable at current dose. Also having sleep disturbances, high stress. Patient reports he would feel overwhelmed, cry easily, and become sad, extensively noted in old chart. Will monitor for depression. Continue current regimen. 12/23/2023 Encounter for screening for depression (ICD-10 - Z13.31) 05/16/2024 Encounter for screening for depression (ICD-10 - Z13.31) 05/16/2024 Encounter for screening, unspecified (ICD-10 - Z13.9) Patient refuses PCV and Shingles vaccine today. 12/23/2023 Encounter for screening, unspecified (ICD-10 - Z13.9) 12/23/2023 Overweight (ICD-10 - E66.3) 05/16/2024 Overweight (ICD-10 - E66.3) 05/16/2024 BMI 30.0-30.9,adult (ICD-10 - Z68.30) BMI greater than 29. Obesity is caused by an imbalance between food intake & energy expenditure. Studies suggest that a net reduction of 500-1000-Cirilo can cause weight loss. Recommendations to increase physical activity on a weekly basis to include 30 minute sessions of moderate intensity exercise such as hiking, walking, bicycling. 12/23/2023 Body mass index [BMI] 29.0-29.9, adult (ICD-10 - Z68.29) 12/23/2023 Flu vaccine refused (ICD-10 - Z28.21) [...] PL[place]LETS ) 12/12/2024 Next Appt Details Provider Name:Yoleni Andres, 12/22/2024 09:00:00 AM, [address] [place], [address], Insurance Providers Payer Name Payer Address Payer Phone Subscriber Number Group Number Insured Name Patient Relationship to Insured Coverage Start Date Coverage End Date [employer] [address] [address] [place] [address] [id number] Murtaza Muller Self - patient is the insured 1 Medicare [address] [address] [place] [address] [id number] Murtaza Muller Self - patient is the insured 1 Medical (General) History Medical History History ICD Code depression high blood pressure measles chicken pox bleeding disorder diabetes vascular disease Surgical History Surgery Date(Month/Year) gallbladder 2021 Colonoscopy - in [place], [place] --- @[facility] 12/2022 Hospitalization History Reason Date(Month/Year) cerebral hemorrahage 2008 pulmonary embolism leg infection
[2024-11-01 12:50] LABS: INR 2.48 (0.9-1.1); Prothrombin Time 25.7 seconds (10.1-12.5)
== END 2024-11-01 23:59 | disposition home or self-care (01) ==
LOC: LAB 11:35
PROVIDERS: PCP Internal Medicine Adolescent Medicine; Visit Provider Internal Medicine Adolescent Medicine
DX: Z79.01 Long term (current) use of anticoagulants (principal)
CPT/HCPCS: 36415; 85610

== ENCOUNTER 2024-12-06 09:30 | Outpatient (CLI) | payer MEDICARE, SELFPAY ==
--- OUTSIDE RECORDS SUMMARY | 2024-12-06 09:41 | XMS_ITS | Data Portability ---
Author Organization [facility] [facility], [facility] [place] [facility] Address [address] [place] [address] Care Team Providers Care Medicare Biller Name Role Phone PILO WALLER Primary Care Provider Assessment No assessment recorded. Plan of Treatment Reminders Order Date Submit Date Provider Last Modified By Organization Details Last Modified Time Details Appointments None record ed. Lab None record ed. Referral None record ed. Procedures None record ed. Surgeries None record ed. Imaging None record ed. Medication Orders None record ed. Patient TargetsNo targets recorded. Patient InstructionsNo instructions recorded. Reason for Referral None Reported. Procedures Surgical History Date Name Laterality Status Provider Name and Address Organization Details Recorded Time 025 DAK - Destruction BN Lesions completed GODWIN MONTEMAYOR MD [address] [place] [address], [phone], [facility] 11/01/2024 16:21:28 cholecystectomy completed Chriss Ray [facility] 10/21/2024 10:00:21 Imaging Results None recorded. Procedure Notes None recorded. Medical Equipment None Reported. Allergies No known drug allergies Medications Name Sig Start Date Stop Date Status Note LastModified by Organization Details LastModified Time Coumadin 4 mg tablet Daily active Frequenc y: daily;Me dication Descript ion: warfarin ; Dosage:a s directed ; Route:or al; refills: 5; Quantity :30 tablet Not Available Not Available Not Available alprazolam 0.25 mg tablet Daily active Duration : 10 days;Jayden quency: daily;Al t Frequenc y: prn;Medi cation Descript ion: alprazol am; Dosage:1 ; Route:or al; refills: 0; Quantity :20 Not Available Not Available Not Available folic acid 1 mg tablet Daily active Duration : 30 days;Jayden quency: daily;Me dication Descript ion: folic acid; Dosage:1 ; Route:or al; refills: 0; Quantity :30 tablet Not Available Not Available Not Available Vitals None Recorded Social History None recorded. Functional Status None recorded. Mental Status None recorded. Family History Nothing Reported. Medical History No medical history recorded. Past Encounters Encounter ID Performer Location Encounter Start Date Encounter Closed Date Diagnosis/Indication Diagnosis SNOMED-CT Code Diagnosis ICD10 Code Diagnosis IMO Codes Diagnosis Note [id number] [facility] [address] 05/26/2016 20:53:25 05/26/2016 20:53:25 [id number] GODWIN MONTEMAYOR MD [place] [address] [place] [address] 10/21/2024 09:35:09 10/21/2024 10:38:33 Melanocytic nevus of skin 367056549 D22.5 Benign lesion(s) assessed Solar lentiginosis 53560 2006 L81.4 Benign lesion(s) assessed Employing a comprehens miya sun protection regimen was recommende d, including: - Recommenda tions to use broad brimmed hats, and Mineral (Zinc/Trisha nium) based sunscreens (which are broad spectrum and SPF 30+ practicall y without exception) - Benefits of mineral sunscreens compared to chemical/m ainstream sunscreen choices, including broader UV protection and lower risk of causing irritation , rash or a burning sensation Seborrheic keratosis 394 386397 L82.1 Benign lesion(s) assessedWi ll treat SK on R clavicle today on the R clavicle per patient request as a courtesy to pt Benign leoncio plasm of skin of trunk [id number] D22.5 [id number] - Benign appearing, reassuranc e- Continue to monitor- RTC sooner PRN for changes/co ncerns/sym ptomatic etc R upper buttock: 7mm x 6mm two-toned brown, fried-egg macule 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 Pt's reports she has products at home to use on patient's feet. patient declined rx. Health Concerns Section Related Observation LastModified by Organization Detai ls LastModified Time None Recorded Concern Status LastModified by Organization Details LastModified Time None Recorded Advance Directives Directive None Recorded Payers Insurance Date Sequence Insurance Name Policy Number Policy Mitchell Covered Member ID Mitchell Member ID Guarantor Name 11/02/2024 1 [employer] (MEDICARE REPLACEMENT/A DVANTAGE - PPO) Murtaza Cochran [id number] Murtaza Cochran Notes Date Note Type Note Provider Name and Address Organization Details Recorded Time 10/21/2024 text/html ROS as noted in the HPI I have different spots on my skin that I'd like to be checked Extent of skin exam requested:full Re-est, last seen 01/2015 GODWIN MONTEMAYOR MD [facility] [place], [address], [facility] 11/01/2024 16:22:32
--- OUTSIDE RECORDS SUMMARY | 2024-12-06 09:41 | XMS_ITS | Continuity of Care Document ---
Author Organization [facility] Address [address] [place] [address] Care Team Providers Care Accounts Payable Supervisor Name Role Phone TYRONEPILO LIM Primary Care Provider Assessment No assessment recorded. [...] Destruction BN Lesions completed GODWIN MONTEMAYOR MD [address] [place] [address], [phone] 11/01/2024 16:21:28 cholecystectomy completed Chriss Ray [facility] 10/21/2024 10:00:21 Imaging Results None recorded. [...] ICD10 Code Diagnosis IMO Codes Diagnosis Note [id number] GODWIN MONTEMAYOR MD [place] [address] [place] [address] 10/21/2024 09:35:09 10/21/2024 10:38:33 Melanocytic nevus of skin 707011676 D22.5 Benign lesion(s) assessed Solar lentiginosis 33575 2006 L81.4 Benign lesion(s) assessed Employing a [...] or a burning sensation Seborrheic keratosis 394 394658 L82.1 Benign lesion(s) assessedWi ll treat SK on R clavicle today on the R clavicle per patient request as a courtesy to pt Benign leoncio plasm of skin of trunk [id number] D22.5 [id number] - Benign appearing, reassuranc e- Continue to monitor- RTC sooner PRN for changes/co ncerns/sym ptomatic etc R upper buttock: 7mm x 6mm two-toned brown, fried-egg macule Palmoplant ar keratoderma 955669484 Q82.8 [id number] Nature of the diagnosis was discussedO ffered to send 40% urea cream. Pt's reports she has products at home to use on patient's feet. patient declined rx. Health Concerns Section Related Observation LastModified by Organization Detai ls LastModified Time None Recorded Concern Status LastModified by Organization Details LastModified Time None Recorded Payers Encounter Date Sequence Insurance Name Policy Number Policy Mitchell Covered Member ID Mitchell Member ID Guarantor Name 10/21/2024 1 [employer] (MEDICARE REPLACEMENT/A DVANTAGE - PPO) Murtaza Cochran [id number] Murtaza Cochran Notes Date Note Type Note Provider Name and Address Organization Details Recorded Time 10/21/2024 text/html ROS as noted in the HPI I have different spots on my skin that I'd like to be checked Extent of skin exam requested:full Re-est, last seen 01/2015 GODWIN MONTEMAYOR MD [address] [place], [address], [facility] 11/01/2024 16:22:32
--- OUTSIDE RECORDS SUMMARY | 2024-12-06 09:41 | XMS_ITS | Patient Health Record ---
Author Organization [facility] Address [address] [place] [address] [place] [address] Care Team Providers Care Elevator Operator Service Name Role Phone Gonzales Freed Primary Care Provider Sheridan-Que Andreslexza Unavailable Lizarraga, Yue Unavailable [phone] Allergies No Known Allergies Results Component Value Reference Range Flag Notes PT and PTT Reviewed date:06/21/2024 11:49:05 AM Interpretation: Performing Lab:[facility] [id number], Phone - [phone], Director - Susanna Notes/Report: INR 1.4 0.9-1.2 [...] refer to the [facility] Directory of Services. PT/INR Reviewed date:12/23/2023 10:25:16 AM Interpretation: Performing Lab: Notes/Report: INR 2.0 Comp. Metabolic Panel (14) Reviewed date:12/11/2023 03:09:45 PM Interpretation: Performing Lab:[facility] [address] [id number], Phone - [phone], Director - Susanna Notes/Report: Glucose 131 70-99 [...] Report Reviewed date:12/11/2023 03:09:45 PM Interpretation: Performing Lab:[facility] [id number], Phone - [phone], Director - Susanna Notes/Report: PDF Report1 [facility] Cardiovascular Risk Assessme nt Reviewed date:12/11/2023 03:09:45 PM Interpretation: Performing Lab:[facility] [id number], Phone - [phone], Director - Susanna Notes/Report: Interpretation Note Supplement al report is available. PDF Not applicable Lipid Panel With LDL/HDL Rat io* Reviewed date:12/11/2023 03:09:45 PM Interpretation: Performing Lab:[facility] [id number], Phone - [phone], Director - Susanna Notes/Report: Cholesterol, Total 137 100-199 mg/dL Triglycerides 83 0-149 mg/dL HDL Cholesterol 56 >39 mg/dL VLDL Cholesterol [place] 16 5-40 mg/dL LDL Chol Calc ([facility]) 65 0-99 mg/dL LDL/HDL Ratio 1.2 0.0-3.6 ratio LDL/HDL Ratio Men Women 1/2 Avg.Risk 1.0 1.5 Avg.Risk 3.6 3.2 2X Avg.Risk 6.2 5.0 3X Avg.Risk 8.0 6.1 Microalb/Creat Ratio, Randm Ur* Reviewed date:12/11/2023 03:09:45 PM Interpretation: Performing Lab:[address] [id number], Phone - [phone], Director - MDFarlane Notes/Report: Creatinine, Urine 141.9 Not Estab. mg/dL Albumin, Urine 186.2 Not Estab. ug/mL Alb/Creat Ratio 131 0-29 mg/g creat H Normal: 0 - 29 Moderately increased: 30 - 300 Severely increased: >300 Thyroid Panel With TSH Reviewed date:12/11/2023 03:09:45 PM Interpretation: Performing Lab:[address] [id number], Phone - [phone], Director - MDTomasa Notes/Report: TSH 2.310 0.450-4.500 uIU/mL Thyroxine (T4) 7.7 4.5-12.0 ug/dL T3 Uptake 23 24-39 % L Free Thyroxine Index 1.8 1.2-4.9 Hemoglobin A1c* Reviewed date:12/11/2023 03:09:45 PM Interpretation: Performing Lab:[address] [id number], Phone - [phone], Director - MDTomasa Notes/Report: Hemoglobin A1c 7.2 4.8-5.6 % H . Prediabetes: 5.7 - 6.4 Diabetes: >6.4 Glycemic control for adults with diabetes: <7.0 CBC With Differential/Platel et* Reviewed date:12/11/2023 03:09:45 PM Interpretation: Performing Lab:[address] [id number], Phone - [phone], Director - Susanna Notes/Report: WBC 6.9 3.4-10.8 [...] Program Reviewed date:12/11/2023 03:09:44 PM Interpretation: Performing Lab:[facility] [address] [id number], Phone - [phone], Director - Susanna Notes/Report: Interpretation Note Supplement al report is available. PDF . PT/INR Reviewed date:04/29/2024 04:25:24 PM Interpretation: Performing Lab: Notes/Report: INR 3.2 Covid 19 (Rapid) Reviewed date:12/15/2023 10:28:09 AM Interpretation:Positive Performing Lab: Notes/Report: Positive Prothrombin Time (PT) Reviewed date:05/02/2024 08:53:08 AM Interpretation: Performing Lab:[facility] [address] [id number], Phone - [phone], Director - Susanna Notes/Report: INR 2.6 0.9-1.2 H Reference interval is for non-anticoagulated patients. . Suggested INR therapeutic range for Vitamin K antagonist therapy: Standard Dose (moderate intensity therapeutic range): 2.0 - 3.0 Higher intensity therapeutic range 2.5 - 3.5 Prothrombin Time 27.8 9.1-12.0 sec H Reason For Referral No Information Medications Medication SIG (Take, Route, Frequency, Duration) Notes Start Date End Date Status Warfarin Sodium 4 MG Tablet 1 tablet [facility] Thursday, Thursday, Thursday Active Warfarin Sodium 3 MG Tablet 1 tablet O[facility] Thursday, , Thursday, Thursday Active glipiZIDE 2.5 MG Tablet 1 tablet 30 monika edvin before breakfast Orally Once a day; Duration: 90 days Active Finasteride 5 MG Tablet 1 tablet Orally Once a day; Duration: 90 days Active Losartan Potassium 100 MG Tablet 1 tablet Orally Once a day Active Warfarin Sodium 4 MG Tablet 1 tablet [facility] Thursday, Thursday, Thursday; Duration: 30 days 05/11/2024 [...] Notes Problem Long-term current use of anticoagulant (194480203) fluorescent lamp replacer (current) use of anticoagulants (Z79.01) Active confirmed Problem Seizure disorder (515055301) Seizure disorder (G40.909) Active confirmed Stable. See Dr. Wesley's old records. Previously on Keppra, but this was eventually tapered down due to possibly contributing to patient's anxiety. Will monitor. Problem Anemia (273056010) Anemia (D64.9) Active confirmed Problem Body mass index 30+ - obesity (964412922) BMI 30.0-30.9,adult (Z68.30) Active confirmed Problem Onychomycosis (118676829) Onychomycosis (B35.1) Active confirmed Stable. See foot exam 04/18/2021. Will monitor. Problem History of pulmonary embolus (913059507) History of pulmonary embolism (Z86.711) Active confirmed stable on warfarin, s/p [place] IVC filter 2008. 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 Problem Antiphospholipid syndrome (32493626) Antiphospholipid syndrome (D68.61) Active confirmed Stable. Se e notes from Dr. Wesley former primary care doctor. Patient had two pulmonary embolisms in the past, and was evaluated by advanced registered nurse [place] of state. Will request records. 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 Se e notes from Dr. Wesley former primary care doctor. Patient had two pulmonary embolisms in the past, and was evaluated by advanced registered nurse out of state. Will request records. Problem Diabetic renal disease (380507106) Type 2 diabetes mellitus with diabetic chronic kidney disease (E11.22) Active confirmed Stable. [employer] (ADA) diet discussed with patient. Patient is to continue to avoid concentrated sweets and sugars and to eat more complex carbohydrates . Will follow up on Hgb A1C. Problem Overweight (649094305) Overweight (E66.3) Active confirmed Problem Chronic kidney disease due to hypertension (687966312389867) Hypertensive chronic kidney disease with stage 1 [...] than 130/85. Will monitor Problem Hypercoagulable state (59576296) Secondary hypercoagulable state (D68.69) Active confirmed on Warfarin, with multiple pulmonary embolisms. Will request records from prior advanced registered nurse. Problem Recurrent major depression in full remission (40950391) Major depression, recurrent, full remission (F33.42) Active confirmed Stable. See notes from Dr. Wesley former primary care doctor. Patient has a long standing history of anxiety and depression. Patient has been on Fluoxetine, Lexapro, Trintellix, Prozac, Clonazepam, Buspirone, Xanax, Viibryd. [place] like a zombie on high doses of Fluoxetine, now stable at current dose. Also having sleep disturbances, high stress. Patient reports he would feel overwhelmed, cry easily, and become sad, extensively noted in old chart. Will monitor for depression. Continue current regimen. Problem Generalized anxiety disorder (74148173) MICK (generalized anxiety disorder) (F41.1) Active confirmed Stable. See notes from Dr. Wesley former primary care doctor. Patient has a long standing history of anxiety and depression. Patient has been on Fluoxetine, Lexapro, Trintellix, Prozac, Clonazepam, Buspirone, Xanax, Viibryd. [place] like a zombie on high doses of [...] Hyperglycemia due to type 2 diabetes mellitus (699907528704922) Type 2 diabetes mellitus with hyperglycemia, without [...] found in patient's old records upon review. [employer] (ADA) diet discussed with patient. Patient is to continue to avoid concentrated sweets and sugars and to eat more complex carbohydrates . Will follow up on Hgb A1C. Problem Hyperlipidemia (90653511) Hyperlipemia, idiopathic familial (E78.5) Active confirmed refer to [facility] 11/2020 Problem Mild recurrent major depression (94622884) Mild episode of recurrent major depressive disorder (F33.0) Inactive confirmed Stable. See notes from Dr. Wesley former primary care doctor. Patient has a long standing history of anxiety and depression. Patient has been on Fluoxetine, Lexapro, Trintellix, Prozac, Clonazepam, Buspirone, Xanax, Viibryd. [place] like a zombie on high doses of [...] Active confirmed Stable. Wit h hyperlipidemi a. [employer] (ADA) diet discussed with patient. Patient is to continue to avoid concentrated sweets and sugars and to eat more complex carbohydrates . Will follow up on Hgb A1C. Problem Benign prostatic hypertrophy without outflow obstruction (571861383) Benign prostatic hyperplasia, unspecified whether lower urinary tract symptoms present (N40.0) Active confirmed stable Problem Mild major depression, single episode (03531262) Current mild episode of major depressive disorder without prior episode (F32.0) Inactive confirmed He has been on fluoxetine since 2008 after cerebral hemorrhage, mood has been stable. Problem Lower urinary tract symptoms due to benign prostatic hypertrophy (68492638055055) Benign prostatic hyperplasia with lower urinary tract symptoms, symptom details unspecified (N40.1) Active confirmed Problem Social anxiety disorder (29200819) Social anxiety disorder (F40.10) Active confirmed Stable. Se bobby notes from Dr. Wesley former primary care doctor. Patient has a long standing history of anxiety and depression. Patient has been on Fluoxetine, Lexapro, Trintellix, Prozac, Clonazepam, Buspirone, Xanax, Viibryd. [place] like a zombie on high doses of [...] Active confirmed Stable. Wi th onychiomyosis . [employer] (ADA) diet discussed with patient. Patient is to continue to avoid concentrated sweets and sugars and to eat more complex carbohydrates . Will follow up on Hgb A1C. Problem Primary hypertension (11746091) Primary hypertension (I10) Active confirmed Blood Pressure [...] Will monitor Problem History of cerebral hemorrhage (543728101) History of cerebral hemorrhage (Z86.79) Active confirmed due to warfarin in 2008 Problem Chronic kidney disease stage 3B (disorder) (636379157) Stage 3b chronic kidney disease (CKD) (N18.32) Active confirmed Stable. Discussed with patient the importance of maintaining a low salt diet , blood pressure control and proper hydration, will monitor for protein in urine, will follow Problem Tic disorder (762149) Tic disorder (F95.9) Active confirmed Stable. See [...] pressure. Encounters Encounter Location Date Provider Diagnosis [facility] [address] [place] [address] 12/15/2023 Radha Moore COVID-19 U07.1 [facility] [address] [place] [address] 12/23/2023 Yue Lizarraga Type 2 diabetes mellitus [...] anticoagulant syndrome D68.62 ; Anemia D64.9 ; fluorescent lamp replacer (current) use of anticoagulants Z79.01 ; Benign prostatic hyperplasia with lower urinary tract symptoms, symptom details unspecified N40.1 ; Seizure disorder G40.909 ; Major depression, recurrent, full remission F33.42 ; Encounter for screening for depression Z13.31 ; Encounter for screening, unspecified Z13.9 ; Overweight E66.3 ; Body mass index [BMI] 29.0-29.9, adult Z68.29 and Flu vaccine refused Z28.21 [facility] [address] [place] [address] 04/29/2024 Radha Moore fluorescent lamp replacer (current) use of anticoagulants Z79.01 [facility] [address] [place] [address] 05/16/2024 Yue Lizarraga Type 2 diabetes mellitus [...] anticoagulant syndrome D68.62 ; Anemia D64.9 ; prison (current) use of anticoagulants Z79.01 ; Benign prostatic hyperplasia with lower urinary tract symptoms, symptom details unspecified N40.1 ; Seizure disorder G40.909 ; Major depression, recurrent, full remission F33.42 ; Encounter for screening for depression Z13.31 ; Encounter for screening, unspecified Z13.9 ; Overweight E66.3 and BMI 30.0-30.9,adult Z68.30 [facility] [address] [place] [address] 12/15/2023 Gonzales Ignacia-Markellt [facility] [address] [place] [address] 12/22/2023 Jelexza Sheridan-Gaetan [facility] [address] [place] [address] 04/18/2024 Jelexleni Sheridan-Mckenna Lupus anticoagulant syndrome D68.62 and History of pulmonary embolism Z86.711 [facility] [address] [place] [address] 04/28/2024 Jelexza Sheridan-Gaetan [facility] [address] [place] [address] 04/29/2024 Gonzales [facility] Lupus anticoagulant syndrome D68.62 [facility] [address] [place] [address] 05/11/2024 Jelexleni Moore History of pulmonary embolism Z86.711 [facility] [address] [place] [address] 05/18/2024 Jelexza Fatimah-Gaetan Assessments Encounter Date Diagnosis (ICD Code) Assessment Notes Treatment Notes Treatment Clinical Notes Section Notes 12/15/2023 COVID-19 (ICD-10 - U07.1) 05/11/2024 History of pulmonary embolism (ICD-10 - Z86.711) stable on warfarin, s/p [place] IVC filter 2008. 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 04/29/2024 Lupus anticoagulant syndrome (ICD-10 - D68.62) 04/29/2024 fluorescent lamp replacer (current) use of anticoagulants (ICD-10 - Z79.01) [...] 20 to 30 minutes call our office [phone] for further instruction. -If you get a [...] need to change your dose of Warfarin 04/18/2024 Lupus anticoagulant syndrome (ICD-10 - D68.62) [...] be following up with his PCP in [place]. ADA diet discussed with patient. Patient is [...] target less than 130/85. Will monitor 12/23/2023 Type 2 diabetes mellitus with diabetic [...] be following up with his PCP in [place]. ADA diet discussed with patient. Patient is [...] (ICD-10 - Z86.711) Stable on warfarin, s/p [place] IVC filter 2008. He was off warfarin [...] pulmonary embolisms. Will request records from prior advanced registered nurse. 12/23/2023 Type 2 diabetes mellitus with other [...] in the past, and was evaluated by advanced registered nurse out of state. Will request records. 12/23/2023 Lupus anticoagulant syndrome (ICD-10 - D68.62) Stable. See notes from Dr. Wesley former primary care doctor. Patient had two pulmonary embolisms in the past, and was evaluated by advanced registered nurse out of state. Will request records. 12/23/2023 Anemia (ICD-10 - D64.9) Improving, patient had colonoscopy 12/2022 [facility] and no GI bleeding found as per . Patient evaluated also by Hematology [facility], recommmedations to start iron given, Hbg going up. May take oral iron every other day. 05/16/2024 Anemia (ICD-10 - D64.9) Improving, patient had colonoscopy 12/2022 [facility] and no GI bleeding found as per . [place] [facility], recommmedations to start iron given, Hbg going up. May take oral iron every other day. 05/16/2024 fluorescent lamp replacer (current) use of anticoagulants (ICD-10 - Z79.01) [...] 20 to 30 minutes call our office [phone] for further instruction. -If you get a [...] to change your dose of Warfarin 12/23/2023 prison (current) use of anticoagulants (ICD-10 - Z79.01) [...] 20 to 30 minutes call our office [phone] for further instruction. -If you get a [...] to change your dose of Warfarin 12/23/2023 Benign prostatic hyperplasia with lower urinary tract symptoms, symptom details unspecified (ICD-10 - N40.1) Stable. Patient on Tamsulosin and Finasteride. Refilled Finasteride today. Will follow. 05/16/2024 Benign prostatic hyperplasia with lower urinary tract symptoms, symptom details unspecified (ICD-10 - N40.1) Stable. Patient on Tamsulosin and Finasteride. 05/16/2024 Seizure disorder (ICD-10 - G40.909) Stable. [...] Lexapro, Trintellix, Prozac, Clonazepam, Buspirone, Xanax, Viibryd. [place] like a zombie on high doses of [...] Lexapro, Trintellix, Prozac, Clonazepam, Buspirone, Xanax, Viibryd. [place] like a zombie on high doses of [...] Addydmitry, 12/22/2024 09:00:00 AM, [address] [place], [address], Insurance Providers Payer Name Payer Address Payer Phone Subscriber Number Group Number Insured Name Patient Relationship to Insured Coverage Start Date Coverage End Date [employer] [address] [address] [place] [address] [id number] Murtaza Muller Self - patient is the insured 1 Medicare [address] [address] [place] [address] [id number] Murtaza Muller Self - patient is the insured 1 Medical (General) History Medical History History ICD Code depression high blood pressure measles chicken pox bleeding disorder diabetes vascular disease Surgical History Surgery Date(Month/Year) gallbladder 2021 Colonoscopy - in [place], [place] --- @[facility] 12/2022 Hospitalization History Reason Date(Month/Year) cerebral hemorrahage 2008 pulmonary embolism leg infection
[2024-12-06 10:15] LABS: INR 2.81 (0.9-1.1); Prothrombin Time 28.9 seconds (10.1-12.5)
== END 2024-12-06 23:59 | disposition home or self-care (01) ==
LOC: LAB 09:30
PROVIDERS: PCP Internal Medicine Adolescent Medicine; Visit Provider Internal Medicine Adolescent Medicine
DX: Z79.01 Long term (current) use of anticoagulants (principal)
CPT/HCPCS: 36415; 85610

== ENCOUNTER 2024-12-29 11:20 | Outpatient (CLI) | payer MEDICARE, SELFPAY ==
--- OUTSIDE RECORDS SUMMARY | 2023-12-10 04:30 | XMS_ITS ---
Author Organization [facility] Address [address] [place] [address] Care Team Providers Care Butter Printer Name Role Phone Gonzales Freed Primary Care Provider Radha Moore Unavailable REASON FOR VISIT 8 month f/up Medications [...] Warfarin Sodium 4 MG Tablet 1 tablet [facility] Thursday, Thursday, Thursday; Duration: 30 days 12/10/2022 Unknown Warfarin Sodium 3 MG Tablet 1 tablet Ora lly Thursday, , Thursday, Thursday12/10/2022 Unknown Problems Problem Type SNOMED Code ICD Code Onset Dates Problem Status W/U Status Risk Notes Problem Anemia (525128562) Anemia (D64.9) Active confirmed Encounters Encounter Location Date Provider Diagnosis [address] [place] [address] 12/10/2023 Radha Moore Hypertensive chronic kidney disease [...] B35.1 ; 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 Citizen Of [place] Diabetic Association (ADA) diet discussed with patient. [...] insulin (ICD-10 - E11.69) Stable. With hyperlipidemia. Citizen [place] [employer]abetic Association (ADA) diet discussed with patient. [...] pulmonary embolisms. Will request records from prior reservation manager. 12/10/2023 Type 2 diabetes mellitus with other [...] in the past, and was evaluated by reservation manager [place] of state. Will request records. 12/10/2023 salvage determiner (current) use of anticoagulants (ICD-10 - Z79.01) [...] 20 to 30 minutes call our office [phone] for further instruction. -If you get a [...] Lexapro, Trintellix, Prozac, Clonazepam, Buspirone, Xanax, Viibryd. [place] like a zombie on high doses of [...] Z13.9) 12/10/2023 Other stable on warfarin, s/p [place] IVC filter 2008. 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 Stable, continue treatment Improving, patient had colonoscopy 12/2022 [facility] and no GI bleeding found as per . Patient evaluated also by Hematology [facility], recommmedations to start iron given, Hbg [...] a da y Treatment Notes Assessment Notes salvage determiner (current) use of anticoagulant s HOLD WARFARIN [...] 20 to 30 minutes call our office [phone] for further instruction. -If you get a [...] 04/13/2025 09:00:00 AM, [address] [place], [address], History and Physical Notes * Examination Category [...] Murtaza MULLER RDOB:[birth year] (79 yo M)Acc No.[id number]:12/10/2023 Progress Notes Patient: Murtaza Burnett R Provider: Maria Del Carmen Moore MD :1945 A ge:78 Y S ex:Male Date:12/10/2023 Address:[facility] [address], [facility], [place]-[id number] Pcp:Gonzales Freed Subjective: * Chief Complaints: * [...] disease - E11.22 (Primary) N otes :Stable. Citizen Of [place] Diabetic Association (ADA) diet discussed with patient. [...] of insulin Clinical Notes: Stable. With hyperlipidemia. Citizen [place] Diabetic Association (ADA) diet discussed with patient. [...] pulmonary embolisms. Will request records from prior reservation manager. 6. 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 L upus anticoagulant syndrome Clinical Notes: Stable. See notes from Dr. Wesley former primary care doctor. Patient had two pulmonary embolisms in the past, and was evaluated by reservation manager out of state. Will request records.? 8. [...] 20 to 30 minutes call our office [phone] f or further instruction. -If you get [...] Lexapro, Trintellix, Prozac, Clonazepam, Buspirone, Xanax, Viibryd. [place] like a zombie on high doses of [...] day. Clinical Notes: stable on warfarin, s/p [place] IVC filter 2008. 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 Stable, continue treatment Improving, patient had colonoscopy 12/2022 [facility] and no GI bleeding found as per . Patient evaluated also by Hematology [facility], recommmedations to start iron given, Hbg going up. Stable continue current medications Billing Information: * Procedure Codes: * Electronic signature of Julio Moore MD on 12/29/2024 at 11:25 AM EST Sign off status: Pending * Provider: Maria Del Carmen Moore MD Date: Generated for Rita warner/Lauren/Thuitting on: 02/29/2024 11:25 AM EST
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
--- OUTSIDE RECORDS SUMMARY | 2024-12-29 11:25 | XMS_ITS | Data Portability ---
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 Hemoglobin currently stable around 99/2. He is currently taking iron. Suggest ascorbic [...] Pulse oximetry Heart rate Heart rate Systolic And Diastolic Provider Name and Address Organization Details Last Updated DateTime 3 02622.0 6 g 97.3 [degF] 30 kg/m2 172.72 cm 98 % 98 % 58 /min 59 /min 176/64 mm[Hg] Sheree Fay [facility] [place] 3 10:16:17 Social History None recorded. Functional Status None recorded. Mental Status None recorded. Family History Nothing Reported. Medical History No medical history recorded. Past Encounters Encounter ID Performer Location Encounter Start Date Encounter Closed Date Diagnosis/Indication Diagnosis SNOMED-CT Code Diagnosis ICD10 Code Diagnosis IMO Codes Diagnosis Note [id number] Ty Sandoval MD [facility] [address] [place] [address] 02/06/2023 10:04:49 02/06/2023 10:40:18 Iron deficiency anemia 89304682 D50.9 History of adenomatous polyp of colon 910162372 Z86.[address] polyposis of stomach 194679140 K31.7 Health Concerns Section Related Observation LastModified by Organization Detai ls LastModified Time None Recorded Concern Status LastModified by Organization Details LastModified Time None Recorded Advance Directives Directive None Recorded Payers Insurance Date Sequence Insurance Name Policy Number Policy Mitchell Covered Member ID Mitchell Member ID Guarantor Name 02/09/2023 1 [employer] (MEDICARE REPLACEMENT/A DVANTAGE - PPO) Murtaza Cochran [id number] Murtaza Cochran Notes Date Note Type Note [...] years. He is following with hematology In [place] as well. Ty Sandoval MD [facility], [place], [address], [facility] [place] 02/06/2023 14:18:48
--- OUTSIDE RECORDS SUMMARY | 2024-12-29 11:26 | XMS_ITS | Patient Health Record ---
Author Organization [facility] Address [address] [address] [place] [address] Care Team Providers Care Cold Working Supervisor Name Role Phone Gonzales Freed Primary Care Provider Sheridan-Gaetan, Jelexza Unavailable [phone] Lizarraga, Yue Unavailable [phone] Allergies No Known Allergies Results Component Value Reference Range Flag Notes CBC (INCLUDES DIFFERENTIAL A ND PLATELETS) (Not yet reviewed by provider) Interpretation: Performing Lab: Notes/Report: PT and PTT Reviewed date:06/21/2024 11:49:05 AM Interpretation: Performing Lab:[facility] [address] [id number], Phone - [phone], Director - Susanna Notes/Report: INR 1.4 0.9-1.2 [...] guidelines on Heparin monitoring, [facility]. Prothrombin Time (PT) Reviewed date:05/02/2024 08:53:08 AM Interpretation: Performing Lab:[facility] [address] [id number], Phone - [phone], Director - Susanna Notes/Report: INR 2.6 0.9-1.2 H Reference interval is for non-anticoagulated patients. . Suggested INR therapeutic range for Vitamin K antagonist therapy: Standard Dose (moderate intensity therapeutic range): 2.0 - 3.0 Higher intensity therapeutic range 2.5 - 3.5 Prothrombin Time 27.8 9.1-12.0 sec H PT/INR Reviewed date:04/29/2024 04:25:24 PM Interpretation: Performing Lab: Notes/Report: INR 3.2 Reason For Referral No Information Medications Medication SIG (Take, Route, Frequency, Duration) Notes Start Date End Date Status FLUoxetine HCl 20 MG Capsule 1 tablet Orally Once a day A ctive Finasteride 5 MG Tablet 1 tablet Orally Once a day; Duration: 90 days Active Atorvastatin Calcium 20 MG Tablet 1 tablet Orally Once a day; Duration: 100 days Active Tamsulosin HCl 0.4 MG Capsule 1 [...] for 4 weeks, then 0.5mg Subcutaneous Active Warfarin Sodium 3 MG Tablet 1 tablet Orally Thursday, , Thursday, Thursday Activ e Ozempic (0.25 or 0.5 MG/DOSE) 2 MG/3ML Solution Pen-injector as directed Subcutaneous 12/22/2024 Act miya Warfarin Sodium 4 MG Tablet 1 tablet Orally Thursday, Thursday, Thursday Active Social History Tobacco Use: Social History [...] Notes Problem Long-term current use of anticoagulant (566637216) meterman (current) use of anticoagulants (Z79.01) Active confirmed Problem Seizure disorder (348564327) Seizure disorder (G40.909) Active confirmed Stable. See Dr. Wesley's old records. Previously on Keppra, but this was eventually tapered down due to possibly contributing to patient's anxiety. Will monitor. Problem Anemia (842918793) Anemia (D64.9) Active confirmed Problem Body mass index 30+ - obesity (441759297) BMI 30.0-30.9,adult (Z68.30) Active confirmed Problem Onychomycosis (611004695) Onychomycosis (B35.1) Active confirmed Stable. See foot exam 04/18/2021. Will monitor. Problem History of pulmonary embolus (296267608) History of pulmonary embolism (Z86.711) Active confirmed stable on warfarin, s/p [place] IVC filter 2008. 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 Problem Antiphospholipid syndrome (61268882) Antiphospholipid syndrome (D68.61) Active confirmed Stable. Se e notes from Dr. Wesley former primary care doctor. Patient had two pulmonary embolisms in the past, and was evaluated by enterprise integration developer out of state. Will request records. 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 Se e notes from Dr. Wesley former primary care doctor. Patient had two pulmonary embolisms in the past, and was evaluated by enterprise integration developer out of state. Will request records. Problem Diabetic renal disease (151732386) Type 2 diabetes mellitus with diabetic chronic kidney disease (E11.22) Active confirmed Stable. [place] [employer] (ADA) diet discussed with patient. Patient is to continue to avoid concentrated sweets and sugars and to eat more complex carbohydrates . Will follow up on Hgb A1C. Problem Obesity due to excess calories (168688689) Other obesity due to excess calories (E66.09) Active confirmed Problem Overweight (976197946) Overweight (E66.3) Active confirmed Problem Chronic kidney disease due to hypertension (591241380951900) Hypertensive chronic kidney disease with stage 1 [...] than 130/85. Will monitor Problem Hypercoagulable state (47045528) Secondary hypercoagulable state (D68.69) Active confirmed on Warfarin, with multiple pulmonary embolisms. Will request records from prior enterprise integration developer. Problem Recurrent major depression in full remission (97149893) Major depression, recurrent, full remission (F33.42) Active confirmed Stable. See notes from Dr. Wesley former primary care doctor. Patient has a long standing history of anxiety and depression. Patient has been on Fluoxetine, Lexapro, Trintellix, Prozac, Clonazepam, Buspirone, Xanax, Viibryd. [place] like a zombie on high doses of Fluoxetine, now stable at current dose. Also having sleep disturbances, high stress. Patient reports he would feel overwhelmed, cry easily, and become sad, extensively noted in old chart. Will monitor for depression. Continue current regimen. Problem Generalized anxiety disorder (48267104) MICK (generalized anxiety disorder) (F41.1) Active confirmed Stable. See notes from Dr. Wesley former primary care doctor. Patient has a long standing history of anxiety and depression. Patient has been on Fluoxetine, Lexapro, Trintellix, Prozac, Clonazepam, Buspirone, Xanax, Viibryd. [place] like a zombie on high doses of [...] Hyperglycemia due to type 2 diabetes mellitus (820619111177059) Type 2 diabetes mellitus with hyperglycemia, without [...] found in patient's old records upon review. [place] [employer] (ADA) diet discussed with patient. Patient is to continue to avoid concentrated sweets and sugars and to eat more complex carbohydrates . Will follow up on Hgb A1C. Problem Hyperlipidemia (86472075) Hyperlipemia, idiopathic familial (E78.5) Active confirmed refer to [facility] 11/2020 Problem Mild recurrent major depression (24119159) Mild episode of recurrent major depressive disorder (F33.0) Inactive confirmed Stable. See notes from Dr. Wesley former primary care doctor. Patient has a long standing history of anxiety and depression. Patient has been on Fluoxetine, Lexapro, Trintellix, Prozac, Clonazepam, Buspirone, Xanax, Viibryd. [place] like a zombie on high doses of [...] Active confirmed Stable. Wit h hyperlipidemi a. [place] [employer] (ADA) diet discussed with patient. Patient is to continue to avoid concentrated sweets and sugars and to eat more complex carbohydrates . Will follow up on Hgb A1C. Problem Benign prostatic hypertrophy without outflow obstruction (181256844) Benign prostatic hyperplasia, unspecified whether lower urinary tract symptoms present (N40.0) Active confirmed stable Problem Mild major depression, single episode (89004350) Current mild episode of major depressive disorder without prior episode (F32.0) Inactive confirmed He has been on fluoxetine since 2008 after cerebral hemorrhage, mood has been stable. Problem Lower urinary tract symptoms due to benign prostatic hypertrophy (80827556670692) Benign prostatic hyperplasia with lower urinary tract symptoms, symptom details unspecified (N40.1) Active confirmed Problem Social anxiety disorder (61413127) Social anxiety disorder (F40.10) Active confirmed Stable. Se rosales notes from Dr. Wesley former primary care doctor. Patient has a long standing history of anxiety and depression. Patient has been on Fluoxetine, Lexapro, Trintellix, Prozac, Clonazepam, Buspirone, Xanax, Viibryd. [place] like a zombie on high doses of [...] Active confirmed Stable. Wi th onychiomyosis . [place] [employer] (ADA) diet discussed with patient. Patient is to continue to avoid concentrated sweets and sugars and to eat more complex carbohydrates . Will follow up on Hgb A1C. Problem Primary hypertension (60945869) Primary hypertension (I10) Active confirmed Blood Pressure [...] target less than 130/85mmHg. Will monitor Problem Body mass index 30+ - obesity (202706383) Body mass index [BMI] 30.0-30.9, adult (Z68.30) Active confirmed Problem History of cerebral hemorrhage (148318412) History of cerebral hemorrhage (Z86.79) Active confirmed due to warfarin in 2008 Problem Chronic kidney disease stage 3B (disorder) (052742818) Stage 3b chronic kidney disease (CKD) (N18.32) Active confirmed Stable. Discussed with patient the importance of maintaining a low salt diet , blood pressure control and proper hydration, will monitor for protein in urine, will follow Problem Tic disorder (439730) Tic disorder (F95.9) Active confirmed Stable. See Dr. Wesley's old records. Will monitor. Problem Obese class I (finding) (369039573244936) Obesity, class 1 (E66.811) Active confirmed Vital Signs Heart Rate 59 /min 12/22/2024 IV 0911 Temperature 98 degrees Fahrenheit 12/22/2024 IV 091 1 Respiratory Rate 16 /min 12/22/2024 IV 0911 Blood pressure diastolic 81 mm Hg 12/22/2024 IV 0911 Height-cm 175.26 cm 12/22/2024 IV 0911 Oximetry 98 % 12/22/2024 IV 0911 Weight-kg 93.08 kg 12/22/2024 IV 0911 Height 69 in 12/22/2024 IV 0911 Blood pressure systolic 137 mm Hg 12/22/2024 IV 0 911 Weight 205.2 lbs 12/22/2024 IV 0911 BMI 30.3 kg/m2 12/22/2024 IV 0911 Encounters Encounter Location Date Provider Diagnosis [facility] [address] [place] [address] 04/29/2024 Radha Moore meterman (current) use of anticoagulants Z79.01 [facility] [address] [place] [address] 05/16/2024 Yue Lizarraga Type 2 diabetes mellitus [...] ; Overweight E66.3 and BMI 30.0-30.9,adult Z68.30 [address] [place] [address] 12/22/2024 Radha Moore Type 2 diabetes mellitus [...] anticoagulant syndrome D68.62 ; Anemia D64.9 ; meterman (current) use of anticoagulants Z79.01 ; Benign [...] adult Z68.30 and Obesity, class 1 E66.811 [facility] [address] [place] [address] 04/18/2024 Jelexza Sheridan-Gaetan Lupus anticoagulant syndrome D68.62 and History of pulmonary embolism Z86.711 [facility] [address] [place] [address] 04/28/2024 Jelexza Sheridan-Gaetan [facility] [address] [place] [address] 04/29/2024 Gonzales Freed Lupus anticoagulant syndrome D68.62 [facility] [address] [place] [address] 05/11/2024 Jelexza Sheridan-Gaetan History of pulmonary embolism Z86.711 [facility] [address] [place] [address] 05/18/2024 Jelexza Sheridan-Gaetan [facility] [address] [place] [address] 12/09/2024 Jelexza Sheridan-Gaetan [facility] [address] [place] [address] 12/20/2024 Jelexza Sheridan-Gaetan Assessments Encounter Date Diagnosis (ICD Code) Assessment Notes Treatment Notes Treatment Clinical Notes Section Notes 04/29/2024 Lupus anticoagulant syndrome (ICD-10 - D68.62) 04/18/2024 Lupus anticoagulant syndrome (ICD-10 - D68.62) 04/29/2024 meterman (current) use of anticoagulants (ICD-10 - Z79.01) [...] 20 to 30 minutes call our office [phone] for further instruction. -If you get a [...] need to change your dose of Warfarin 05/11/2024 History of pulmonary embolism (ICD-10 - Z86.711) stable on warfarin, s/p [place] IVC filter 2008. 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 12/22/2024 Type 2 diabetes mellitus with diabetic [...] be following up with his PCP in [place]. ADA diet discussed with patient. Patient is [...] for target less than 130/85. Will monitor 05/16/2024 Type 2 diabetes mellitus with diabetic [...] be following up with his PCP in [place]. ADA diet discussed with patient. Patient is [...] for target less than 130/85. Will monitor 05/16/2024 Post-nasal drip (ICD-10 - R09.82) 12/22/2024 Stage 3b chronic kidney disease (CKD) [...] to www.diabetes.org for more information and education 04/18/2024 History of pulmonary embolism (ICD-10 - Z86.711) stable on warfarin, s/p [place] IVC filter 2008. He was off warfarin [...] exercise and ADA diet. Will monitor A1C. 05/16/2024 History of pulmonary embolism (ICD-10 - Z86.711) Stable on warfarin, s/p [place] IVC filter 2008. He was off warfarin [...] D68.69) On Warfarin, with multiple pulmonary embolisms. 05/16/2024 Hyperlipemia, idiopathic familial (ICD-10 - E78.5) [...] in the past, and was evaluated by enterprise integration developer out of state. Will request records. 05/16/2024 Type 2 diabetes mellitus with other skin complication, without long-term current use of insulin (ICD-10 - E11.628) Stable. DM type 2 with tinea pedis. Recommended moisturizing the skin with Aquaphor. 12/22/2024 Anemia (ICD-10 - D64.9) Improving, patient had colonoscopy 12/2022 [facility] and no GI bleeding found as per . Patient evaluated also by Hematology [facility], recommmedations to start iron given, Hbg going up. May take oral iron every other day. 05/16/2024 Lupus anticoagulant syndrome (ICD-10 - D68.62) Stable. See notes from Dr. Wesley former primary care doctor. Patient had two pulmonary embolisms in the past, and was evaluated by enterprise integration developer out of state. Will request records. 05/16/2024 Anemia (ICD-10 - D64.9) Improving, patient had colonoscopy 12/2022 [facility] and no GI bleeding found as per . Patient evaluated also by Hematology [facility], recommmedations to start iron given, Hbg going up. May take oral iron every other day. 12/22/2024 meterman (current) use of anticoagulants (ICD-10 - Z79.01) [...] 20 to 30 minutes call our office [phone] for further instruction. -If you get a [...] to change your dose of Warfarin 05/16/2024 meterman (current) use of anticoagulants (ICD-10 - Z79.01) [...] 20 to 30 minutes call our office [phone] for further instruction. -If you get a [...] Stable. Patient on Tamsulosin and Finasteride. 05/16/2024 Benign prostatic hyperplasia with lower urinary tract symptoms, symptom details unspecified (ICD-10 - N40.1) Stable. Patient on Tamsulosin and Finasteride. 12/22/2024 Seizure disorder (ICD-10 - G40.909) Stable. See Dr. Wesley's old records. Previously on Keppra, but this was eventually tapered down due to possibly contributing to patient's anxiety. Will monitor. 05/16/2024 Seizure disorder (ICD-10 - G40.909) Stable. [...] Lexapro, Trintellix, Prozac, Clonazepam, Buspirone, Xanax, Viibryd. [place] like a zombie on high doses of [...] Lexapro, Trintellix, Prozac, Clonazepam, Buspirone, Xanax, Viibryd. [place] like a zombie on high doses of [...] intensity exercise such as hiking, walking, bicycling. 05/16/2024 Encounter for screening for depression (ICD-10 - Z13.31) 05/16/2024 Encounter for screening, unspecified (ICD-10 - Z13.9) Patient refuses PCV and Shingles vaccine today. 12/22/2024 Type 2 diabetes mellitus with hyperglycemia, without long-term current use of insulin (ICD-10 - E11.65) Will trial ozempic as A1c is uncontrolled. 12/22/2024 Other obesity due to excess calories (ICD-10 - E66.09) 12/22/2024 Body mass index [BMI] 30.0-30.9, adult (ICD-10 - Z68.30) 05/16/2024 Overweight (ICD-10 - E66.3) 05/16/2024 BMI 30.0-30.9,adult (ICD-10 - Z68.30) BMI greater than 29. Obesity is caused by an imbalance between food intake & energy expenditure. Studies suggest that a net reduction of 500-1000-Cirilo can cause weight loss. Recommendations to increase physical activity on a weekly basis to include 30 minute sessions of moderate intensity exercise such as hiking, walking, bicycling. 12/22/2024 Obesity, class 1 (ICD-10 - E66.811) 12/22/2024 Other Patient interviewed and examined by Post Graduate Resident under direct supervision from Primary Care Provider. I personally saw patient at the end of the visit and went over plan of care with the patient and the resident. Chart reviewed and agree with documentation. Plan Of Treatment Pending Test Test Name Order Date Hemoglobin A1c 04/19/2021 PT/INR 04/15/2021 PT/INR 12/18/2020 LIPID PANEL 05/30/2021 COMPREHENSIVE METABOLIC PANEL 05/30/2021 CBC (INCLUDES DIFF/PLT) WITH SMEAR REVIE W 12/17/2022 Future Test Test Name Order Date LIPID PANEL 12/12/2024 TSH+FREE T4 12/12/2024 PROTHROMBIN W/INR + PARTIAL THROMBOPLAST IN TIMES 12/12/2024 COMPREHENSIVE METABOLIC PANEL 12/12/2024 PROTHROMBIN TIME-INR 12/12/2024 MICROALBUMIN, RANDOM URINE (W/O CREATINI NE) 12/12/2024 HEMOGLOBIN A1c 12/12/2024 CBC (INCLUDES DIFFERENTIAL AND PLATELETS ) 12/12/2024 Comp. Metabolic Panel (14)* 12/22/2024 Hemoglobin A1c* 12/22/2024 PROTHROMBIN W/INR + PARTIAL THROMBOPLAST IN TIMES 12/22/2024 Next Appt Details Provider Name:Radha Stevensonzunilda Addydmitry, 04/13/2025 09:00:00 AM, [address] [place], [address], Insurance Providers Payer Name Payer Address Payer Phone Subscriber Number Group Number Insured Name Patient Relationship to Insured Coverage Start Date Coverage End Date [employer] P[employer] [address] [address] [place] [address] [id number] Murtaza Muller Self - patient is the insured 1 Medicare [address] [address] [place] [address] [id number] Murtaza Muller Self - patient is the insured 1 Medical (General) History Medical History History ICD Code depression high blood pressure measles chicken pox bleeding disorder diabetes vascular disease Surgical History Surgery Date(Month/Year) gallbladder 2021 Colonoscopy - in [place], [place] - - @[facility] 12/2022 Hospitalization History Reason Date(Month/Year) cerebral hemorrahage 2008 pulmonary embolism leg infection
--- OUTSIDE RECORDS SUMMARY | 2024-12-29 11:27 | XMS_ITS | Data Portability ---
Author Organization [facility], [facility] Address [address] [facility] [facility] [place] [address] Care Team Providers Care Student Assistant Name Role Phone PILO WALLER Primary Care Provider [phone] Assessment No assessment recorded. Plan of Treatment [...] Destruction BN Lesions completed GODWIN MONTEMAYOR MD [address] [place] [address], [address], [facility] 11/01/2024 16:21:28 cholecystectomy completed Chriss Ray [facility] 10/21/2024 10:00:21 Imaging Results None recorded. [...] ICD10 Code Diagnosis IMO Codes Diagnosis Note [id number] [facility] [address] 05/26/2016 20:53:25 05/26/2016 20:53:25 [id number] GODWIN MONTEMAYOR MD [place] [address] [place] [address] 10/21/2024 09:35:09 10/21/2024 10:38:33 Melanocytic nevus of skin 155389066 D22.5 Benign lesion(s) assessed Solar lentiginosis 26369 2006 L81.4 Benign lesion(s) assessed Employing a [...] or a burning sensation Seborrheic keratosis 394 043480 L82.1 Benign lesion(s) assessedWi ll treat SK on R clavicle today on the R clavicle per patient request as a courtesy to pt Benign leoncio plasm of skin of trunk 88841301 D22.5 3002211 - Benign appearing, reassuranc e- Continue to monitor- RTC sooner PRN for changes/co ncerns/sym ptomatic etc R upper buttock: 7mm x 6mm two-toned brown, 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
[2024-12-29 11:51] LABS: INR 1.60 (0.9-1.1); Prothrombin Time 17.2 seconds (10.1-12.5)
== END 2024-12-29 23:59 | disposition home or self-care (01) ==
LOC: LAB 11:21
PROVIDERS: PCP Internal Medicine Adolescent Medicine; Visit Provider Internal Medicine Adolescent Medicine
DX: Z79.01 Long term (current) use of anticoagulants (principal)
CPT/HCPCS: 36415; 85610

== ENCOUNTER 2025-01-12 11:58 | Outpatient (CLI) | payer MEDICARE, SELFPAY ==
--- OUTSIDE RECORDS SUMMARY | 2023-12-10 04:30 | XMS_ITS ---
Author Organization [facility] Address [address] [place] [address] Care Team Providers Care Pusher Operator Name Role Phone Gonzales Freed Primary Care Provider [phone] Radha Moore Unavailable [phone] REASON FOR VISIT 8 month f/up Medications Medication SIG (Take, Route, Frequency, Duration) Notes Start Date End Date Status Finasteride 5 MG Tablet 1 tablet Orally Once a day Active FLUoxetine HCl 20 MG Capsule 1 tablet Orally Once a day Active Atorvastatin Calcium 20 MG Tablet 1 tablet Orally Once a day; Duration: 90 days Active Iron (Ferrous Sulfate) 325 (65 Fe) MG Tablet 1 tablet Orally Three times a Week Unknown Folic Acid 1 MG Tablet 1 tablet Orally O nce a day Unknown Triamcinolone Acetonide 0.1 % Cream 1 application Externally two times daily to affected area; Duration: 14 days 05/15/2023 Unknown Atorvastatin Calcium 20 MG Tablet 1 tablet Orally Once a day; Duration: 90 days Unknown predniSONE 20 MG Tablet 1 tablet Orally twice a day; Duration: 5 days 05/15/2023 Unknown Tamsulosin HCl 0.4 MG Capsule 1 capsule Orally Once a day Active Losartan Potassium 100 MG Tablet 1 tablet Orally Once a day Active Fexofenadine HCl 180 MG Tablet 1 tablet Swallow whole with water; do not take with fruit juices. Orally Once a day; Duration: 14 days 05/15/2023 Unknown Cefdinir 300 MG Capsule 1 capsule Orally twice; Duration: 7 days 12/19/2022 Unknown Warfarin Sodium 4 MG Tablet 1 tablet [facility] Thursday, Thursday, Thursday; Duration: 30 days 12/10/2022 Unknown Warfarin Sodium 3 MG Tablet 1 tablet Ora lly Thursday, , Thursday, Thursday12/10/2022 Unknown Problems Problem Type SNOMED Code ICD Code Onset Dates Problem Status W/U Status Risk Notes Problem Anemia ([id number]) Anemia (D64.9) Active confirmed Encounters Encounter Location Date Provider Diagnosis [address] [place] [address] 12/10/2023 Radha Moore Hypertensive chronic kidney disease with stage 1 through stage 4 chronic kidney disease, or unspecified chronic kidney disease I12.9 ; Type 2 diabetes mellitus with diabetic chronic kidney disease E11.22 ; Stage 3b chronic kidney disease (CKD) N18.32 ; Type 2 diabetes mellitus with other specified complication, without long-term current use of insulin E11.69 ; Hyperlipemia, idiopathic familial E78.5 ; Secondary hypercoagulable state D68.69 ; Type 2 diabetes mellitus with other skin complication, without long-term current use of insulin E11.628 ; Onychomycosis B35.1 ; 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 Discussed the importance of lowering the blood pressure to reduce the risk of stroke, cardiovascular, and all cause mortality through means such as: diet, exercise, low salt diet, and no smoking. Aim for target less than 130/85. Will monitor 12/10/2023 Type 2 diabetes mellitus with diabetic chronic kidney disease (ICD-10 - E11.22) Stable. [employer] (ADA) diet discussed with patient. Patient is to continue to avoid concentrated sweets and sugars and to eat more complex carbohydrates. Will follow up on Hgb A1C. 12/10/2023 Stage 3b chronic kidney disease (CKD) (ICD-10 - N18.32) Stable. Discussed with patient the importance of maintaining a low salt diet , blood pressure control and proper hydration, will monitor for protein in urine, will follow 12/10/2023 Type 2 diabetes mellitus with other specified complication, without long-term current use of insulin (ICD-10 - E11.69) Stable. With hyperlipidemia. [employer] (ADA) diet discussed with patient. Patient is to continue to avoid concentrated sweets and sugars and to eat more complex carbohydrates. Will follow up on Hgb A1C. 12/10/2023 Hyperlipemia, idiopathic familial (ICD-10 - E78.5) Uncontrolled, starting statins, possible side effects explained. LDL goal 70 12/10/2023 Secondary hypercoagulable state (ICD-10 - D68.69) on Warfarin, with multiple pulmonary embolisms. 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 12/10/2023 Type 2 diabetes mellitus with other skin complication, without long-term current use of insulin (ICD-10 - E11.628) DM type 2 with tinea pedis, topical antifungal given 12/10/2023 Onychomycosis (ICD-10 - B35.1) Stable. See foot exam 04/18/2021. Will monitor. 12/10/2023 Lupus anticoagulant syndrome (ICD-10 - D68.62) Stable. See notes from Dr. Wesley former primary care doctor. 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 Will request records. 12/10/2023 termite control servicer (current) use of anticoagulants (ICD-10 - Z79.01) HOLD WARFARIN TODAYWARFARIN 4MG THURSDAY, ThursdayWARFARIN 3MG THURSDAY, THURSDAY, THURSDAY, THURSDAYREPEAT INR NEXT WEEKWarfarin is an effective medicine to prevent new blood clots and to keep existing ones from getting bigger. It does not dissolve existing clots. Warfarin is safe and effective if used carefully. is important that you continue monitoring your INR at least once a month Read all new medicine labels to make sure they don't contain aspirin before using them. If you are not sure, ask our providers. Tylenol(acetamin ophen)is ok to take Alcohol can make you bleed more easily while taking warfarin therefore we recommend you avoid alcohol or street drugs For a cut, put pressure on the area for 2-5 minutes. If you're still bleeding in 20 to 30 minutes call our provider for further instruction If you get a nosebleed, do not hold her head back. Instead, holding her head in a normal upright position. Pinch your nose together just below the bony part and squeeze tightly for 2-5 minutes. Usign a decongestant such as Afrin may help, but always call our providers. If you get nosebleed easily, try using a humidifier, and saline spray or gel. This help keep your nose moist and prevent nosebleeds. Keep your diet consistent in the amount of food that contained vitamin K each day Keep your exercise level regular Maintain regular daily activities including consistent even in exercise habit will make it less likely to need to change your dose of warfarin -Warfarin is an effective medicine to prevent new blood clots and to keep existing ones from getting bigger. It does not dissolve existing clots. Warfarin is safe and effective if used carefully. It's important that you continue monitoring your INR at least once a month. -Read all new medicine labels to make sure they don't contain aspirin before using them. If you are not sure, ask our providers. Tylenol (acetaminophen) is OK to take. Alcohol can make you bleed more easily while taking Warfarin therefore we recommend you avoid alcohol or recreational drugs. -For a cut, put pressure on the area for 2-5 minutes. If you're still bleeding in 20 to 30 minutes call our office [phone] for further instruction. -If you get a nosebleed, do not hold your head back. Instead, hold you head in a normal upright position. Pinch your nose together just below the bony part and squeeze tightly for 2-5 minutes. Using a decongestant such as Afrin may help, but always call our office. If you get nosebleeds easily, try using a humidifier, and saline spray or gel. This will help keep your nose moist and prevent nosebleeds. -Keep your diet consistent in the amount of food that contained vitamin K each day. Keep you exercise level regular. Maintain regular daily activities including your exercise habits consistently. This will make it less likely to need to change your dose of Warfarin 12/10/2023 Seizure disorder (ICD-10 - G40.909) Stable. See Dr. Wesley's old records. Previously on Keppra, but this was eventually tapered down due to possibly contributing to patient's anxiety. Will monitor. 12/10/2023 Major depression, recurrent, full remission (ICD-10 - F33.42) Stable. See notes from Dr. Wesley former primary care doctor. Patient has a long standing history of anxiety and depression. Patient has been on Fluoxetine, Lexapro, Trintellix, Prozac, Clonazepam, Buspirone, Xanax, Viibryd. Ada like a zombie on high doses of Fluoxetine, now stable at current dose. Also having sleep disturbances, high stress. Patient reports he would feel overwhelmed, cry easily, and become sad, extensively noted in old chart. Will monitor for depression. Continue current regimen. 12/10/2023 Encounter for screening for depression (ICD-10 - Z13.31) 12/10/2023 Encounter for screening, unspecified (ICD-10 - Z13.9) 12/10/2023 Other stable on warfarin, s/p [place] IVC filter 2008. 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 Stable, continue treatment Improving, patient had colonoscopy 12/2022 [facility] and no GI bleeding found as per . Patient evaluated also by Hematology [facility], recommmedations to start iron given, Hbg going up. Stable continue current medications Plan Of Treatment Medication Medication Name Sig Start Date Stop Date Notes Finasteride 5 MG Tablet 1 tablet Orally Once a day FLUoxetine HCl 20 MG Capsule 1 tablet Orally Once a day Atorvastatin Calcium 20 MG Tablet 1 tablet Orally Once a day; Duration: 90 days Tamsulosin HCl 0.4 MG Capsule 1 capsule Orally Once a day Losartan Potassium 100 MG Tablet 1 tablet Orally Once a da y Treatment Notes Assessment Notes long-term (current) use of anticoagulant s HOLD WARFARIN TODAYWARFARIN 4MG THURSDAY, ThursdayWARFARIN 3MG THURSDAY, THURSDAY, THURSDAY, THURSDAYREPEAT INR NEXT WEEKWarfarin is an effective medicine to prevent new blood clots and to keep existing ones from getting bigger. It does not dissolve existing clots. Warfarin is safe and effective if used carefully. is important that you continue monitoring your INR at least once a month Read all new medicine labels to make sure they don't contain aspirin before using them. If you are not sure, ask our providers. Tylenol(acetaminophen)is ok to take Alcohol can make you bleed more easily while taking warfarin therefore we recommend you avoid alcohol or street drugs For a cut, put pressure on the area for 2-5 minutes. If you're still bleeding in 20 to 30 minutes call our provider for further instruction If you get a nosebleed, do not hold her head back. Instead, holding her head in a normal upright position. Pinch your nose together just below the bony part and squeeze tightly for 2-5 minutes. Usign a decongestant such as Afrin may help, but always call our providers. If you get nosebleed easily, try using a humidifier, and saline spray or gel. This help keep your nose moist and prevent nosebleeds. Keep your diet consistent in the amount of food that contained vitamin K each day Keep your exercise level regular Maintain regular daily activities including consistent even in exercise habit will make it less likely to need to change your dose of warfarin -Warfarin is an effective medicine to prevent new blood clots and to keep existing ones from getting bigger. It does not dissolve existing clots. Warfarin is safe and effective if used carefully. It's important that you continue monitoring your INR at least once a month. -Read all new medicine labels to make sure they don't contain aspirin before using them. If you are not sure, ask our providers. Tylenol (acetaminophen) is OK to take. Alcohol can make you bleed more easily while taking Warfarin therefore we recommend you avoid alcohol or recreational drugs. -For a cut, put pressure on the area for 2-5 minutes. If you're still bleeding in 20 to 30 minutes call our office [phone] for further instruction. -If you get a nosebleed, do not hold your head back. Instead, hold you head in a normal upright position. Pinch your nose together just below the bony part and squeeze tightly for 2-5 minutes. Using a decongestant such as Afrin may help, but always call our office. If you get nosebleeds easily, try using a humidifier, and saline spray or gel. This will help keep your nose moist and prevent nosebleeds. -Keep your diet consistent in the amount of food that contained vitamin K each day. Keep you exercise level regular. Maintain regular daily activities including your exercise habits consistently. This will make it less likely to need to change your dose of Warfarin Next Appt Details Provider Name:Radha Radha Andres, 04/13/2025 09:00:00 AM, [address] [place], [address], History and Physical Notes * Examination Category Sub-Category Detail Notes Category Not es General Examination GENERAL APPEARANCE: well dev eloped, well nourished, in no acute distress HEAD: normocephalic, atrau matic EYES: pupils equal, round, reactive to light and accommodation, sclera non-icteric EARS: normal THROAT: clear NECK/THYROID: neck supple, full ra nge of motion, no cervical lymphadenopathy HEART: regular rate and rhy thm, S1, S2 normal, no murmurs LUNGS: clear to auscultatio n bilaterally ABDOMEN: soft, nontender, non distended, bowel sounds present, normal NEUROLOGIC: nonfocal, motor stre ngth normal upper and lower extremities, sensory exam intact SKIN: warm and dry, no nilesh picious lesions EXTREMITIES: no clubbing, cyanosi s, or edema ORAL CAVITY: mucosa moist FOOT EXAM: Date: 04/22/2023 Sensory testing performed:: sensations n ormal Sensory and motor testing performed:: se nsations and strength normal Pedal pulse taking performed:: 2+ Progress Notes * Murtaza MULLER RDOB:[birth year] (79 yo M)Acc No.[id number]:12/10/2023 Progress Notes Patient: Murtaza Burnett R Provider: Maria Del Carmen Moore MD :[id number] A ge:78 Y S ex:Male Date:12/10/2023 Address:[facility] [address], [facility], [id number] Pcp:Gonzales Freed Subjective: * Chief Complaints: * 8 month f/up * Medications: U nknownAtorvastatin Calcium 20 MG Tablet 1 tablet Orally Once a day Cefdinir 300 MG Capsule 1 capsule Orally twice Fexofenadine HCl 180 MG Tablet 1 tablet Swallow whole with water; do not take with fruit juices. Orally Once a day Finasteride 5 MG Tablet 1 tablet Orally Once a day FLUoxetine HCl 20 MG Capsule 1 tablet Orally Once a day Folic Acid 1 MG Tablet 1 tablet Orally Once a day Iron (Ferrous Sulfate) 325 (65 Fe) MG Tablet 1 tablet Orally Three times a Week Losartan Potassium 100 MG Tablet 1 tablet Orally Once a day predniSONE 20 MG Tablet 1 tablet Orally twice a day Tamsulosin HCl 0.4 MG Capsule 1 capsule Orally Once a day Triamcinolone Acetonide 0.1 % Cream 1 application Externally two times daily to affected area Warfarin Sodium 4 MG Tablet 1 tablet Orally Thursday, Thursday, Thursday Warfarin Sodium 3 MG Tablet 1 tablet Orally Thursday, , Thursday, Thursday Unknown Atorvastatin Calcium 20 MG Tablet 1 tablet Orally Once a day Unknown Cefdinir 300 MG Capsule 1 capsule Orally twice Unknown Fexofenadine HCl 180 MG Tablet 1 tablet Swallow whole with water; do not take with fruit juices. Orally Once a day Unknown Finasteride 5 MG Tablet 1 tablet Orally Once a day Unknown FLUoxetine HCl 20 MG Capsule 1 tablet Orally Once a day Unknown Folic Acid 1 MG Tablet 1 tablet Orally Once a day Unknown Iron (Ferrous Sulfate) 325 (65 Fe) MG Tablet 1 tablet Orally Three times a Week Unknown Losartan Potassium 100 MG Tablet 1 tablet Orally Once a day Unknown predniSONE 20 MG Tablet 1 tablet Orally twice a day Unknown Tamsulosin HCl 0.4 MG Capsule 1 capsule Orally Once a day Unknown Triamcinolone Acetonide 0.1 % Cream 1 application Externally two times daily to affected area Unknown Warfarin Sodium 4 MG Tablet 1 tablet Orally Thursday, Thursday, Thursday Unknown Warfarin Sodium 3 MG Tablet 1 tablet Orally Thursday, , Thursday, Thursday Objective: * Examination: G eneral Examination: GENERAL APPEARANCE: w ell developed, well nourished, in no acute distress. HEAD: n ormocephalic, atraumatic. EYES: p upils equal, round, reactive to light and accommodation, sclera non-icteric. EARS: n ormal. ORAL CAVITY: m ucosa moist. THROAT: c lear. NECK/THYROID: n khari supple, full range of motion, no cervical lymphadenopathy. SKIN: w arm and dry, no suspicious lesions. HEART: r egular rate and rhythm, S1, S2 normal, no murmurs.? LUNGS: c lear to auscultation bilaterally. ABDOMEN: s oft, nontender, nondistended, bowel sounds present, normal. EXTREMITIES: n o clubbing, cyanosis, or edema. NEUROLOGIC: n onfocal, motor strength normal upper and lower extremities, sensory exam intact. FOOT EXAM: ? Sensory testing perf ormed: s ensations normal ? Sensory and motor te sting performed: s ensations and strength normal ? Pedal pulse taking p erformed: 2 + ??? Assessment: * Assessment: 1. T ype 2 diabetes mellitus with diabetic chronic kidney disease - E11.22 (Primary) N otes :Stable. [employer] (ADA) diet discussed with patient. Patient is to continue to avoid concentrated sweets and sugars and to eat more complex carbohydrates. Will follow up on Hgb A1C. 2 . H ypertensive chronic kidney disease with stage 1 through stage 4 chronic kidney disease, or unspecified chronic kidney disease - I12.9 3 . S tage 3b chronic kidney disease (CKD) - N18.32 4 . T ype 2 diabetes mellitus with other specified complication, without long-term current use of insulin - E11.69 5 . H yperlipemia, idiopathic familial - E78.5 6 . S econdary hypercoagulable state - D68.69 7 . T ype 2 diabetes mellitus with other skin complication, without long-term current use of insulin - E11.628 8 . O nychomycosis - B35.1 N otes :Stable. See foot exam 04/18/2021. Will monitor. 9 . L upus anticoagulant syndrome - D68.62 1 0. L brandon term (current) use of anticoagulants - Z79.01 1 1. S eizure disorder - G40.909 & #160; 1 2. M ajor depression, recurrent, full remission - F33.42 1 3. E ncounter for screening for depression - Z13.31 1 4. E ncounter for screening, unspecified - Z13.9 Plan: * Treatment: 2. S tage 3b chronic kidney disease (CKD) Continue Losartan Potassium Tablet, 100 MG, 1 tablet, Orally, Once a day. Clinical Notes: Stable. Discussed with patient the importance of maintaining a low salt diet , blood pressure control and proper hydration, will monitor for protein in urine, will follow 3. T ype 2 diabetes mellitus with other specified complication, without long-term current use of insulin Clinical Notes: Stable. With hyperlipidemia. [employer] (ADA) diet discussed with patient. Patient is to continue to avoid concentrated sweets and sugars and to eat more complex carbohydrates. Will follow up on Hgb A1C. 4. H yperlipemia, idiopathic familial Start Atorvastatin Calcium Tablet, 20 MG, 1 tablet, Orally, Once a day, 90 days, 90 Tablet, Refills 1. Clinical Notes: Uncontrolled, starting statins, possible side effects explained. LDL goal 70 ? 5. S econdary hypercoagulable state Clinical Notes: on Warfarin, with multiple pulmonary embolisms. 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 6. 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 L upus anticoagulant syndrome Clinical Notes: Stable. See notes from Dr. Wesley former primary care doctor. 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 Will request records.? 8. L brandon term (current) use of anticoagulants Notes: HOLD WARFARIN TODAY WARFARIN 4MG THURSDAY, Thursday WARFARIN 3MG THURSDAY, THURSDAY, THURSDAY, THURSDAY REPEAT INR NEXT WEEK Warfarin is an e ffective medicine to prevent new blood clots and to keep existing ones from getting bigger. It does not dissolve existing clots. Warfarin is safe and effective if used carefully. is i mportant that you continue monitoring y our INR at least once a monthRead all new medicine labels to make sure they don't contain aspirin before using them. If you are not sure, ask our providers. T ylenol(acetaminophen)is ok to take A lcohol can make you bleed more easily while taking warfarin therefore we recommend you avoid alcohol or street drugs F or a cut, put pressure on the area for 2-5 minutes. If you're still bleeding in 20 to 30 minutes call our provider for further instruction I f you get a nosebleed, do not hold her head back. Instead, holding her head in a normal upright position. P inch y our nose t ogether just below the bony part and squeeze tightly for 2-5 minutes. Usign a decongestant such as Afrin may help, but always call our providers. If you get nosebleed easily, try using a humidifier, and saline spray or gel. This help keep your nose moist and prevent nosebleeds. K eep your diet c onsistent in the amount of food that contained vitamin K each day K eep your exercise level regular M aintain regular daily activities including consistent even in exercise habit will make it less likely to need to change your dose of warfarin -Warfarin is an effective medicine to prevent new blood clots and to keep existing ones from getting bigger. It does not dissolve existing clots. Warfarin is safe and effective if used carefully. It's important that you continue monitoring your INR at least once a month. -Read all new medicine labels to make sure they don't contain aspirin before using them. If you are not sure, ask our providers. Tylenol (acetaminophen) is OK to take. Alcohol can make you bleed more easily while taking Warfarin therefore we recommend you avoid alcohol or recreational drugs. -For a cut, put pressure on the area for 2-5 minutes. If you're still bleeding in 20 to 30 minutes call our office [phone] f or further instruction. -If you get a nosebleed, do not hold your head back. Instead, hold you head in a normal upright position. Pinch your nose together just below the bony part and squeeze tightly for 2-5 minutes. Using a decongestant such as Afrin may help, but always call our office. If you get nosebleeds easily, try using a humidifier, and saline spray or gel. This will help keep your nose moist and prevent nosebleeds. -Keep your diet consistent in the amount of food that contained vitamin K each day. Keep you exercise level regular. Maintain regular daily activities including your e xercise habits consistently. This will make it less likely to need to change your dose of Warfarin 9. S eizure disorder Clinical Notes: Stable. See Dr. Wesley's old records. Previously on Keppra, but this was eventually tapered down due to possibly contributing to patient's anxiety. Will monitor. 10. M ajor depression, recurrent, full remission Clinical Notes: Stable. See notes from Dr. Wesley former primary care doctor. Patient has a long standing history of anxiety and depression. Patient has been on Fluoxetine, Lexapro, Trintellix, Prozac, Clonazepam, Buspirone, Xanax, Viibryd. Ada like a zombie on high doses of Fluoxetine, now stable at current dose. Also having sleep disturbances, high stress. Patient reports he would feel overwhelmed, cry easily, and become sad, extensively noted in old chart. Will monitor for depression. Continue current regimen. 11. O thers Continue Tamsulosin HCl Capsule, 0.4 MG, 1 capsule, Orally, Once a day; C ontinue Finasteride Tablet, 5 MG, 1 tablet, Orally, Once a day; C ontinue FLUoxetine HCl Capsule, 20 MG, 1 tablet, Orally, Once a day. Clinical Notes: stable on warfarin, s/p [place] IVC filter 2008. 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 Stable, continue treatment Improving, patient had colonoscopy 12/2022 [facility] and no GI bleeding found as per . Patient evaluated also by Hematology [facility], recommmedations to start iron given, Hbg going up. Stable continue current medications Billing Information: * Procedure Codes: * Electronic signature of Julio Moore MD on 01/12/2025 at 01:22 PM EST Sign off status: Pending * Provider: Maria Del Carmen Moore MD Date: Generated for Rita warner/Lauren/Thuitting on: 03/14/2024 01:22 PM EST
--- OUTSIDE RECORDS SUMMARY | 2024-12-22 04:00 | XMS_ITS ---
Author Organization [facility] Address [address] [place] [address] Care Team Providers Care Formal Wear Rental Clerk Name Role Phone Gonzales Freed Primary Care [...] Notes Problem Obesity due to excess calories (105210153) Other obesity due to excess calories (E66.09) Active confirmed Problem Obese class I (finding) (8646743123890 07) Obesity, class 1 (E66.811) Active confirmed Problem Body mass index 30+ - obesity (194560327) Body mass index [BMI] 30.0-30.9, adult (Z68.30) [...] Medical Group [address] [place] [address] 12/22/2024 Radha Moore Type 2 diabetes mellitus [...] anticoagulant syndrome D68.62 ; Anemia D64.9 ; oysterman (current) use of anticoagulants Z79.01 ; Benign [...] be following up with his PCP in [place]. ADA diet discussed with patient. Patient is [...] (ICD-10 - Z86.711) Stable on warfarin, s/p [place] IVC filter 2008. He was off warfarin [...] in the past, and was evaluated by retail services professional out of state. Will request records. 12/22/2024 Anemia (ICD-10 - D64.9) Improving, patient had colonoscopy 12/2022 [facility] and no GI bleeding found as per . Patient evaluated also by Hematology [facility], recommmedations to start iron given, Hbg going up. May take oral iron every other day. 12/22/2024 halfway (current) use of anticoagulants (ICD-10 - Z79.01) [...] 20 to 30 minutes call our office [phone] for further instruction. -If you get a [...] Lexapro, Trintellix, Prozac, Clonazepam, Buspirone, Xanax, Viibryd. [place] like a zombie on high doses of [...] be following up with his PCP in [place]. ADA diet discussed with patient. Patient is [...] of pulmonary embolism Stable on warfarin, s/p [place] IVC filter 2008. He was off warfarin [...] in the past, and was evaluated by retail services professional out of state. Will request records. halfway (current) use of anticoagulant s HOLD WARFARIN [...] 20 to 30 minutes call our office [phone] for further instruction. -If you get a [...] Lexapro, Trintellix, Prozac, Clonazepam, Buspirone, Xanax, Viibryd. [place] like a zombie on high doses of [...] 04/13/2025 09:00:00 AM, [address] [place], [address], History and Physical Notes * HPI (History [...] Murtaza MULLER RDOB:[birth year] (79 yo M)Acc No.[id number]:12/22/2024 Progress Notes Patient: Timothy barrera Murtaza R Provider: Maria Del Carmen Moore MD :1945 A ge:79 Y S ex:Male Date:12/22/2024 Address:[address], [place], [id number] Pcp:Gonzales Freed Subjective: * Chief Complaints: * [...] Warfarin who is snowbird and lives in [place] as well who presents today for follow [...] their recent diet. Once they return to [place] she will adjust their diets and get [...] Surgical History: gallbladder 2021 Colonoscopy - in [place], [place] - -@[facility] 12/2022 Surgical History verified. * [...] full remission - F33.42 1 5. B [place] 30.0-30.9,adult - Z68.30 1 6.?Other obesity due [...] pulmonary embolism Notes: Stable on warfarin, s/p [place] IVC filter 2008. He was off warfarin [...] in the past, and was evaluated by retail services professional out of state. Will request records. 10. A rosina Clinical Notes: Improving, patient had colonoscopy 12/2022 [facility] and no GI bleeding found as per . Patient evaluated also by Hematology [facility], recommmedations to start iron given, [...] 20 to 30 minutes call our office [phone] f or further instruction. -If you get [...] Lexapro, Trintellix, Prozac, Clonazepam, Buspirone, Xanax, Viibryd. [place] like a zombie on high doses of Fluoxetine, now stable at current dose. Also having sleep disturbances, high stress. Patient reports he would feel overwhelmed, cry easily, and become sad, extensively noted in old chart. Will monitor for depression. Continue current regimen. 15. B [place] 30.0-30.9,adult Notes: BMI greater than 29. Obesity [...] Procedure Codes: 3 028F O2 SATURATION DOC [id number] MED LIST DOCD IN [id number] BODY MASS INDEX [id number] DIAST BP 80-89 MM [id number] SYST BP GE 130 - 139MM [id number] RVW MEDS BY RX/DR IN [facility] * Preventive Medicine: VIKRAM CADET [...] Date: 1 Generated for Rita warner/Lauren/Thuitting on: 03/14/2024 01:22 PM EST
[2025-01-12 12:41] LABS: INR 3.01 (0.9-1.1); Prothrombin Time 30.8 seconds (10.1-12.5)
--- OUTSIDE RECORDS SUMMARY | 2025-01-12 13:22 | XMS_ITS | Continuity of Care Document ---
Author Organization [facility] [place] Address [address] [place] [address] Care Team Providers Care Java Designer Name Role Phone TYRONEPILO LIM Primary Care [...] Destruction BN Lesions completed GODWIN MONTEMAYOR MD [address] [place] [address], [phone] 11/01/2024 16:21:28 cholecystectomy completed Chriss Ray [facility] 10/21/2024 10:00:21 Imaging Results None recorded. [...] ICD10 Code Diagnosis IMO Codes Diagnosis Note [id number] GODWIN MONTEMAYOR MD [place] [address] [place] [address] 10/21/2024 09:35:09 10/21/2024 10:38:33 Melanocytic nevus of skin 067218234 D22.5 Benign lesion(s) assessed Solar lentiginosis 03179 2006 L81.4 Benign lesion(s) assessed Employing a [...] or a burning sensation Seborrheic keratosis 394 802026 L82.1 Benign lesion(s) assessedWi ll treat SK on R clavicle today on the R clavicle per patient request as a courtesy to pt Benign leoncio plasm of skin of trunk 97277672 D22.5 7826225 - Benign appearing, reassuranc e- Continue to monitor- RTC sooner PRN for changes/co ncerns/sym ptomatic etc R upper buttock: 7mm x 6mm two-toned brown, fried-egg macule Palmoplant ar keratoderma 248449772 Q82.8 02809250 Nature of the diagnosis was discussedO ffered [...] (MEDICARE REPLACEMENT/A DVANTAGE - PPO) Murtaza Cochran [id number] Murtaza Cochran Notes Date Note Type Note Provider Name and Address Organization Details Recorded Time 10/21/2024 text/html ROS as noted in the HPI I have different spots on my skin that I'd like to be checked Extent of skin exam requested:full Re-est, last seen 01/2015 GODWIN MONTEMAYOR MD [address] [place], [address], [facility] 11/01/2024 16:22:32
--- OUTSIDE RECORDS SUMMARY | 2025-01-12 13:23 | XMS_ITS | Data Portability ---
Author Organization [facility] [facility], [facility] Address [address] [facility] [address] [place] [address] Care Team Providers Care Crimping Press Operator Name Role Phone PILO WALLER Primary Care Provider [phone] Assessment No assessment recorded. Plan of Treatment [...] Destruction BN Lesions completed GODWIN MONTEMAYOR MD [address] [place] [address], [address], [facility] 11/01/2024 16:21:28 cholecystectomy completed Chriss Ray [facility] 10/21/2024 10:00:21 Imaging Results None recorded. Procedure [...] ICD10 Code Diagnosis IMO Codes Diagnosis Note [id number] [facility] [address] 05/26/2016 20:53:25 05/26/2016 20:53:25 [id number] GODWIN MONTEMAYOR MD [place] [address] [place] [address] 10/21/2024 09:35:09 10/21/2024 10:38:33 Melanocytic nevus of skin 094359257 D22.5 Benign lesion(s) assessed Solar lentiginosis 50470 2006 L81.4 Benign lesion(s) assessed Employing a [...] or a burning sensation Seborrheic keratosis 394 453941 L82.1 Benign lesion(s) assessedWi ll treat SK on R clavicle today on the R clavicle per patient request as a courtesy to pt Benign leoncio plasm of skin of trunk 91109976 D22.5 5701558 - Benign appearing, reassuranc e- Continue to monitor- RTC sooner PRN for changes/co ncerns/sym ptomatic etc R upper buttock: 7mm x 6mm two-toned brown, fried-egg macule Palmoplant ar keratoderma 478099767 Q82.8 [id number] Nature of the diagnosis was discussedO ffered [...] (MEDICARE REPLACEMENT/A DVANTAGE - PPO) Murtaza Cochran [id number] Murtaza Cochran Notes Date Note Type Note Provider Name and Address Organization Details Recorded Time 10/21/2024 text/html ROS as noted in the HPI I have different spots on my skin that I'd like to be checked Extent of skin exam requested:full Re-est, last seen 01/2015 GODWIN MONTEMAYOR MD [facility] [place], [address], [facility] 11/01/2024 16:22:32
--- OUTSIDE RECORDS SUMMARY | 2025-01-12 13:23 | XMS_ITS | Patient Health Record ---
Author Organization [facility] Address [address] [place] [address] [place] [address] Care Team Providers Care Butadiene Converter Helper Name Role Phone Gonzales Freed Primary Care Provider Sheridan-Gaetan, Jelexza Unavailable Lizarraga, Yue Unavailable [phone] Allergies No Known Allergies Results Component Value Reference Range Flag Notes CBC (INCLUDES DIFFERENTIAL A ND PLATELETS) (Not yet reviewed by provider) Interpretation: Performing Lab: Notes/Report: PT and PTT Reviewed date:06/21/2024 11:49:05 AM Interpretation: Performing Lab:[facility] [address] [id number], Phone - [phone], Director - Susanna Notes/Report: INR 1.4 0.9-1.2 [...] guidelines on Heparin monitoring, refer to the [facility]. Prothrombin Time (PT) Reviewed date:05/02/2024 08:53:08 AM Interpretation: Performing Lab:[facility] [address] [id number], Phone - [phone], Director - Susanna Notes/Report: INR 2.6 0.9-1.2 [...] Notes Problem Long-term current use of anticoagulant (462365099) roasterman (current) use of anticoagulants (Z79.01) Active confirmed Problem Seizure disorder (598392474) Seizure disorder (G40.909) Active confirmed Stable. See Dr. Wesley's old records. Previously on Keppra, but this was eventually tapered down due to possibly contributing to patient's anxiety. Will monitor. Problem Anemia (633866126) Anemia (D64.9) Active confirmed Problem Body mass index 30+ - obesity (319052219) BMI 30.0-30.9,adult (Z68.30) Active confirmed Problem Onychomycosis (761444826) Onychomycosis (B35.1) Active confirmed Stable. See foot exam 04/18/2021. Will monitor. Problem History of pulmonary embolus (329267633) History of pulmonary embolism (Z86.711) Active confirmed stable on warfarin, s/p Sara IVC filter 2008. 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 Problem Antiphospholipid syndrome (36237664) Antiphospholipid syndrome (D68.61) Active confirmed Stable. Se e notes from Dr. Wesley former primary care doctor. Patient had two pulmonary embolisms in the past, and was evaluated [place] broke worker [place]. Will request records. 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 Se e notes from Dr. Wesley former primary care doctor. Patient had two pulmonary embolisms in the past, and was evaluated by broke worker [place] of state. Will request records. Problem Diabetic renal disease (936937933) Type 2 diabetes mellitus with diabetic chronic kidney disease (E11.22) Active confirmed Stable. [place] [employer] (ADA) diet discussed with patient. Patient is to continue to avoid concentrated sweets and sugars and to eat more complex carbohydrates . Will follow up on Hgb A1C. Problem Obesity due to excess calories (587002590) Other obesity due to excess calories (E66.09) Active confirmed Problem Overweight (884610076) Overweight (E66.3) Active confirmed Problem Chronic kidney disease due to hypertension (270552084048045) Hypertensive chronic kidney disease with stage 1 [...] than 130/85. Will monitor Problem Hypercoagulable state (50032870) Secondary hypercoagulable state (D68.69) Active confirmed on Warfarin, with multiple pulmonary embolisms. Will request records from prior broke worker. Problem Recurrent major depression in full remission (05511637) Major depression, recurrent, full remission (F33.42) Active confirmed Stable. See notes from Dr. Wesley former primary care doctor. Patient has a long standing history of anxiety and depression. Patient has been on Fluoxetine, Lexapro, Trintellix, Prozac, Clonazepam, Buspirone, Xanax, Viibryd. [place] like a zombie on high doses of Fluoxetine, now stable at current dose. Also having sleep disturbances, high stress. Patient reports he would feel overwhelmed, cry easily, and become sad, extensively noted in old chart. Will monitor for depression. Continue current regimen. Problem Generalized anxiety disorder (81106421) MICK (generalized anxiety disorder) (F41.1) Active confirmed Stable. See notes from Dr. Wesley former primary care doctor. Patient has a long standing history of anxiety and depression. Patient has been on Fluoxetine, Lexapro, Trintellix, Prozac, Clonazepam, Buspirone, Xanax, Viibryd. [place] like a zombie on high doses of [...] Hyperglycemia due to type 2 diabetes mellitus (247129878886493) Type 2 diabetes mellitus with hyperglycemia, without [...] found in patient's old records upon review. [place] [employer] (ADA) diet discussed with patient. Patient is to continue to avoid concentrated sweets and sugars and to eat more complex carbohydrates . Will follow up on Hgb A1C. Problem Hyperlipidemia (08649073) Hyperlipemia, idiopathic familial (E78.5) Active confirmed refer to [facility] 11/2020 Problem Mild recurrent major depression (18333539) Mild episode of recurrent major depressive disorder (F33.0) Inactive confirmed Stable. See notes from Dr. Wesley former primary care doctor. Patient has a long standing history of anxiety and depression. Patient has been on Fluoxetine, Lexapro, Trintellix, Prozac, Clonazepam, Buspirone, Xanax, Viibryd. [place] like a zombie on high doses of [...] Active confirmed Stable. Wit h hyperlipidemi a. [place] [employer] (ADA) diet discussed with patient. Patient is to continue to avoid concentrated sweets and sugars and to eat more complex carbohydrates . Will follow up on Hgb A1C. Problem Benign prostatic hypertrophy without outflow obstruction (008157759) Benign prostatic hyperplasia, unspecified whether lower urinary tract symptoms present (N40.0) Active confirmed stable Problem Mild major depression, single episode (44563931) Current mild episode of major depressive disorder without prior episode (F32.0) Inactive confirmed He has been on fluoxetine since 2008 after cerebral hemorrhage, mood has been stable. Problem Lower urinary tract symptoms due to benign prostatic hypertrophy (48325628358852) Benign prostatic hyperplasia with lower urinary tract symptoms, symptom details unspecified (N40.1) Active confirmed Problem Social anxiety disorder (85793994) Social anxiety disorder (F40.10) Active confirmed Stable. Se rosales notes from Dr. Wesley former primary care doctor. Patient has a long standing history of anxiety and depression. Patient has been on Fluoxetine, Lexapro, Trintellix, Prozac, Clonazepam, Buspirone, Xanax, Viibryd. [place] like a zombie on high doses of [...] Active confirmed Stable. Wi th onychiomyosis . [place] [employer] (ADA) diet discussed with patient. Patient is to continue to avoid concentrated sweets and sugars and to eat more complex carbohydrates . Will follow up on Hgb A1C. Problem Primary hypertension (80473123) Primary hypertension (I10) Active confirmed Blood Pressure [...] Problem Body mass index 30+ - obesity (474499457) Body mass index [BMI] 30.0-30.9, adult (Z68.30) Active confirmed Problem History of cerebral hemorrhage (336425566) History of cerebral hemorrhage (Z86.79) Active confirmed due to warfarin in 2008 Problem Chronic kidney disease stage 3B (disorder) (536284878) Stage 3b chronic kidney disease (CKD) (N18.32) Active confirmed Stable. Discussed with patient the importance of maintaining a low salt diet , blood pressure control and proper hydration, will monitor for protein in urine, will follow Problem Tic disorder (394361) Tic disorder (F95.9) Active confirmed Stable. See Dr. Wesley's old records. Will monitor. Problem Obese class I (finding) (279787064426574) Obesity, class 1 (E66.811) Active confirmed Vital [...] 0911 Encounters Encounter Location Date Provider Diagnosis [facility] [address] [place] [address] 04/29/2024 Radha Moore roasterman (current) use of anticoagulants Z79.01 [facility] [address] [place] [address] 05/16/2024 Yue Lizarraga Type 2 diabetes mellitus [...] anticoagulant syndrome D68.62 ; Anemia D64.9 ; FPC (current) use of anticoagulants Z79.01 ; Benign prostatic hyperplasia with lower urinary tract symptoms, symptom details unspecified N40.1 ; Seizure disorder G40.909 ; Major depression, recurrent, full remission F33.42 ; Encounter for screening for depression Z13.31 ; Encounter for screening, unspecified Z13.9 ; Overweight E66.3 and BMI 30.0-30.9,adult Z68.30 [address] [place] [address] 12/22/2024 Radha Moore Type 2 diabetes mellitus [...] anticoagulant syndrome D68.62 ; Anemia D64.9 ; roasterman (current) use of anticoagulants Z79.01 ; Benign [...] adult Z68.30 and Obesity, class 1 E66.811 [facility] [address] [place] [address] 04/18/2024 Jelexza Sheridan-Gaetan Lupus anticoagulant syndrome D68.62 and History of pulmonary embolism Z86.711 [facility] [address] [place] [address] 04/28/2024 Jelexza Sheridan-Gaetan [facility] [address] [place] [address] 04/29/2024 Gonzales Ignacia-Souchet Lupus anticoagulant syndrome D68.62 [facility] [address] [place] [address] 05/11/2024 Jelexza Sheridan-Gaetan History of pulmonary embolism Z86.711 [facility] [address] [place] [address] 05/18/2024 Jelexza Sheridan-Gaetan [facility] [address] [place] [address] 12/09/2024 Jelexza Sheridan-Gaetan [facility] [address] [place] [address] 12/20/2024 Jelexza Sheridan-Gaetan Assessments Encounter Date Diagnosis [...] be following up with his PCP in [place]. ADA diet discussed with patient. Patient is [...] Lupus anticoagulant syndrome (ICD-10 - D68.62) 04/29/2024 FPC (current) use of anticoagulants (ICD-10 - Z79.01) [...] 20 to 30 minutes call our office [phone] for further instruction. -If you get a [...] be following up with his PCP in [place]. ADA diet discussed with patient. Patient is [...] monitor 05/16/2024 Post-nasal drip (ICD-10 - R09.82) 04/18/2024 History of pulmonary embolism (ICD-10 - Z86.711) stable on warfarin, s/p Cromwell IVC filter 2008. 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 12/22/2024 Stage 3b chronic kidney disease (CKD) [...] was 2.5. Continue current warfarin regimen. 05/16/2024 Stage 3b chronic kidney disease (CKD) [...] (ICD-10 - Z86.711) Stable on warfarin, s/p Cromwell IVC filter 2008. He was off warfarin [...] and ADA diet. Will monitor A1C. 05/16/2024 Type 2 diabetes mellitus with other [...] Recommended moisturizing the skin with Aquaphor. 05/16/2024 Secondary hypercoagulable state (ICD-10 - D68.69) On Warfarin, with multiple pulmonary embolisms. 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 See notes from Dr. Wesley former primary care doctor. Patient had two pulmonary embolisms in the past, and was evaluated by broke worker out of state. Will request records. 05/16/2024 Type 2 diabetes mellitus with other skin complication, without long-term current use of insulin (ICD-10 - E11.628) Stable. DM type 2 with tinea pedis. Recommended moisturizing the skin with Aquaphor. 12/22/2024 Anemia (ICD-10 - D64.9) Improving, patient had colonoscopy 12/2022 [facility] and no GI bleeding found as per . Patient evaluated also by Hematology [facility], recommmedations to start iron given, Hbg going up. May take oral iron every other day. 05/16/2024 Lupus anticoagulant syndrome (ICD-10 - D68.62) Stable. See notes from Dr. Wesley former primary care doctor. Patient had two pulmonary embolisms in the past, and was evaluated by broke worker out of state. Will request records. 05/16/2024 Anemia (ICD-10 - D64.9) Improving, patient had colonoscopy 12/2022 [facility] and no GI bleeding found as per . Patient evaluated also by Hematology [facility], recommmedations to start iron given, Hbg going up. May take oral iron every other day. 12/22/2024 roasterman (current) use of anticoagulants (ICD-10 - Z79.01) [...] 20 to 30 minutes call our office [phone] for further instruction. -If you get a [...] Stable. Patient on Tamsulosin and Finasteride. 05/16/2024 FPC (current) use of anticoagulants (ICD-10 - Z79.01) [...] 20 to 30 minutes call our office [phone] for further instruction. -If you get a [...] to change your dose of Warfarin 12/22/2024 Seizure disorder (ICD-10 - G40.909) Stable. See Dr. Wesley's old records. Previously on Keppra, but this was eventually tapered down due to possibly contributing to patient's anxiety. Will monitor. 05/16/2024 Benign prostatic hyperplasia with lower urinary tract symptoms, symptom details unspecified (ICD-10 - N40.1) Stable. Patient on Tamsulosin and Finasteride. 12/22/2024 Major depression, recurrent, full remission (ICD-10 - F33.42) Stable. See notes from Dr. Wesley former primary care doctor. Patient has a long standing history of anxiety and depression. Patient has been on Fluoxetine, Lexapro, Trintellix, Prozac, Clonazepam, Buspirone, Xanax, Viibryd. [place] like a zombie on high doses of Fluoxetine, now stable at current dose. Also having sleep disturbances, high stress. Patient reports he would feel overwhelmed, cry easily, and become sad, extensively noted in old chart. Will monitor for depression. Continue current regimen. 05/16/2024 Seizure disorder (ICD-10 - G40.909) Stable. [...] Lexapro, Trintellix, Prozac, Clonazepam, Buspirone, Xanax, Viibryd. [place] like a zombie on high doses of Fluoxetine, now stable at current dose. Also having sleep disturbances, high stress. Patient reports he would feel overwhelmed, cry easily, and become sad, extensively noted in old chart. Will monitor for depression. Continue current regimen. 05/16/2024 Encounter for screening for depression (ICD-10 - Z13.31) 12/22/2024 BMI 30.0-30.9,adult (ICD-10 - Z68.30) BMI greater than 29. Obesity is caused by an imbalance between food intake & energy expenditure. Studies suggest that a net reduction of 500-1000-Cirilo can cause weight loss. Recommendations to increase physical activity on a weekly basis to include 30 minute sessions of moderate intensity exercise such as hiking, walking, bicycling. 05/16/2024 Encounter for screening, unspecified (ICD-10 - [...] Addydmitry, 04/13/2025 09:00:00 AM, [address] [place], [address], Insurance Providers Payer Name Payer Address Payer Phone Subscriber Number Group Number Insured Name Patient Relationship to Insured Coverage Start Date Coverage End Date [employer] [address] [address] [place] [address] [id number] Murtaza Muller Self - patient is the insured 1 Medicare [address] [address] [place] [address] [id number] Murtaza Muller Self - patient is the insured 1 Medical (General) History Medical History History ICD Code depression high blood pressure measles chicken pox bleeding disorder diabetes vascular disease Surgical History Surgery Date(Month/Year) gallbladder 2021 Colonoscopy - in [place], [place] - - @[facility] 12/2022 Hospitalization History Reason Date(Month/Year) cerebral hemorrahage 2008 pulmonary embolism leg infection
== END 2025-01-12 23:59 | disposition home or self-care (01) ==
LOC: LAB 11:58
PROVIDERS: PCP Internal Medicine Adolescent Medicine; Visit Provider Internal Medicine Adolescent Medicine
DX: Z79.01 Long term (current) use of anticoagulants (principal)
CPT/HCPCS: 36415; 85610

== ENCOUNTER 2025-02-03 12:26 | Outpatient (CLI) | payer MEDICARE, SELFPAY ==
[2025-02-03 13:24] LABS: INR 3.30 (0.9-1.1); Prothrombin Time 33.5 seconds (10.1-12.5)
== END 2025-02-03 23:59 | disposition home or self-care (01) ==
LOC: LAB 12:26
PROVIDERS: PCP Internal Medicine Adolescent Medicine; Visit Provider Internal Medicine Adolescent Medicine
DX: Z79.01 Long term (current) use of anticoagulants (principal)
CPT/HCPCS: 36415; 85610